=== PATIENT | female | born 1990 | race Caucasian/White ===

== ENCOUNTER 2023-02-27 11:57 | Outpatient (CLI) | payer MEDICAID, SELFPAY ==
[2023-02-27 13:38] LABS: Thyroid Stim Hormone (TSH) 0.07 uIU/mL (0.358-3.74)
== END 2023-02-27 23:59 | disposition home or self-care (01) ==
PROVIDERS: Visit Provider Psychiatry & Neurology Psychiatry
DX: Z00.00 Encounter for general adult medical examination without abnormal findings (principal); E05.00 Thyrotoxicosis with diffuse goiter without thyrotoxic crisis or storm
CPT/HCPCS: 36415; 84439; 84443; 84481

== ENCOUNTER 2023-05-15 12:56 | Emergency (ER) | payer MEDICAID, SELFPAY ==
[2023-05-15 12:56] VITALS: BP 161/89; PULSE 79; RESP 18; TEMP 35.7; O2SAT 98; BMI 43.4
--- NOTE | 2023-05-15 14:13 | EKG12_ITS ---
Test Reason : Blood Pressure : / mmHG Vent. Rate : 067 BPM Atrial Rate : 067 BPM P-R Int : 174 ms QRS Dur : 096 ms QT Int : 426 ms P-R-T Axes : 023 047 038 degrees QTc Int : 450 ms Normal sinus rhythm Normal ECG Confirmed by BOBY FLOOD, KEVON ([id number]), supervising editor trailer JENY RUGGIERO ([id number]) on 05/17/2023 9:47:15 AM Referred By: Confirmed By:KEVON LANDIS MD
--- NOTE | 2023-05-15 15:28 | ED.RN ---
NO OLD EKGS
[2023-05-15 15:53] VITALS: BP 121/60; BP 138/74; BP 144/81; PULSE 106; PULSE 59; PULSE 63; PULSE 64; RESP 14; O2SAT 99
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
[2023-05-15 16:55] LABS: Absolute Lymphocyte Count 3.26 X10^3/uL (0.83-4.51); Absolute Neutrophil Count 3.7 X10^3/uL (2.0-7.7); Basophil# 0.06 X10^3/uL; Basophil% 0.7 % (0-1); Eosinophil# 0.37 X10^3/uL; Eosinophils% 4.6 % (0-5); Hematocrit 40.2 % (37-47); Hemoglobin 12.8 g/dL (12.0-15.0); Lymphocyte # 3.26 X10^3/ul (0.83-4.51); Lymphocyte % 40.5 % (19-41); Mean Corp Hgb Conc 31.8 g/dL (32-36); Mean Corpuscular Hgb 29.2 pg (27.0-32.0); Mean Corpuscular Volume 91.6 fL (81-99); Mean Platelet Vol. 9.9 fl (6.2-12.0); Monocyte# 0.62 X10^3/uL; Monocyte% 7.7 % (0-10); NRBC Flagged by Analyzer 0 % (0-5); Neutrophil # 3.72 X10^3/uL (2.7-7.7); Neutrophil % 46.3 % (47-70); Platelet Count 310 K/mm3 (150-450); RBC Distribution Width CV 13.4 % (11.6-14.6); RBC Distribution Width SD 45.8 fl (35.1-43.9); Red Blood Count 4.39 M/mm3 (4.2-5.4); White Blood Count 8.1 K/mm3 (4.4-11.0)
[2023-05-15] MEDS: 0.9% Normal Saline (1000mL) 1,000 ML 1000 ML IV (16:59)
--- OUTSIDE RECORDS SUMMARY | 2023-05-15 17:15 | XMS RPT_ITS | CCD ---
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 including D-dimer because she is tachycardic. Will check lactic acid. EKG sinus tachycardia no acute ST elevation or ischemic findings. If her D-dimer is positive we will get a CTA of the chest. If her D-dimer is negative she is going to get a CT of her face to evaluate for any abscess. D-dimer is negative. Chest x-ray per my interpretation no acute process. We will get a CT of the face to make sure there is no abscess. Pending this study will guide disposition if it is negative for acute abscess I think she can go home on further antibiotics and close outpatient follow-up. Further details please see midlevel note. Patient currently on steroids and Keflex from yesterday. Pending studies will guide disposition. Comment: Please note this report has been produced using speech recognition software and may contain errors related to that system including errors in grammar, punctuation, and spelling, as well as words and phrases that may be inappropriate. If there is any questions or concerns please feel free to contact the dictating provider for clarification. Jose Angel Alfaro MD 08/27/22 1228 Jose Angel Alfaro MD 08/27/22 1431 documented in this encounter [facility] 08-27-2022 Physician Emergency department Note I, Jose Angel Alfaro MD, independently evaluated and examined the patient. Patient seen in conjunction with nurse practitioner or physician assistant professor of english or resident physician. Appropriate PPE including n 95, gown, gloves, goggles where worn when appropriate with this patient. I personally saw the patient and performed a substantive portion of the visit including all aspects of medical decision making. This will serve as my Supervisory note and shared attestation. Relevant history and physical exam: Patient presents with facial swelling. Patient was seen yesterday and treated as inflammatory response. She is swelling left side of her face. Does report having chest pain 3 days ago but not currently. On exam she is tachycardic. Lungs are clear. Examination of the face does have generalized erythema but swelling on the left no trismus. Medical decision making: We will check appropriate blood work including D-dimer because she is tachycardic. Will check lactic acid. EKG sinus tachycardia no acute ST elevation or ischemic findings. If her D-dimer is positive we will get a CTA of the chest. If her D-dimer is negative she is going to get a CT of her face to evaluate for any abscess. D-dimer is negative. Chest x-ray per my interpretation no acute process. We will get a CT of the face to make sure there is no abscess. Pending this study will guide disposition if it is negative for acute abscess I think she can go home on further antibiotics and close outpatient follow-up. Further details please see midlevel note. Patient currently on steroids and Keflex from yesterday. Pending studies will guide disposition. Comment: Please note this report has been produced using speech recognition software and may contain errors related to that system including errors in grammar, punctuation, and spelling, as well as words and phrases that may be inappropriate. If there is any questions or concerns please feel free to contact the dictating provider for clarification. Jose Angel Alfaro MD 08/27/22 1228 Jose Angel Alfaro MD 08/27/22 1431 [place] Phone: 08-26-2022 Hospital Discharg e mindy Perez DO - 08/26/2022 9:08 AM EDT At this time this does appear to be more of an allergic reaction rather than a skin infection. Please take the prednisone as prescribed. Please use Benadryl 25 mg 3 times daily as needed at home. If in 2 to 3 days there is any pain or the swelling has worsened please start the antibiotic at that time. We do believe this is more of an allergic reaction rather than a true infection and would like to do a [id number] process in regards to starting antibiotics. Any worsening or changing symptoms please return to the emergency department. The following attachments cannot be sent through Care Everywhere.Allergic Reaction ED ([place])documented in this encounter [facility] 08-26-2022 Emergency department Note Images from the original note were not included. EMERGENCY DEPARTMENT ENCOUNTER Pt Name: Natali Arana Birthdate 1990 Date of evaluation: 08/26/2022 ED Provider: Priscila Perez DO CHIEF COMPLAINT Chief Complaint Patient presents with Facial Swelling HISTORY OF PRESENT ILLNESS (Location/Symptom, Timing/Onset, Context/Setting, Quality, Duration, Modifying Factors, Severity) Note limiting factors. I wore appropriate PPE for the entirety of this encounter. HPI Natali Arana is a 32 y.o. female who presents to the emergency department for left facial swelling. Patient states that she woke this morning and had some swelling underneath her left eye and up to the bridge of her nose on the left side. Patient states she does not have any vision problems, states it does not hurt, states she has no teeth issues, no sore throat. Patient states she just noticed some swelling and came to the ED. Patient has no other underlying allergies she is aware of and came for evaluation Nursing Notes were reviewed. Limitations to history: Outside historians: REVIEW OF SYSTEMS Review of Systems Pertinent positives and negatives as per HPI PAST MEDICAL HISTORY Past Medical History: Diagnosis Date Thyroid disease SURGICAL HISTORY Past Surgical History: Procedure Laterality Date ABDOMINAL SURGERY CURRENT MEDICATIONS Previous Medications No medications on file ALLERGIES Bee venom FAMILY HISTORY No family history on file. SOCIAL HISTORY Social History Socioeconomic History Marital status: Tobacco Use Smoking status: Every Day Packs/day: 0.50 Types: Cigarettes Smokeless tobacco: Never Substance and Sexual Activity Alcohol use: Not Currently Drug use: Never SCREENINGS PHYSICAL EXAM ED Triage Vitals [08/26/22 0848] Temp Heart Rate Resp BP 36.7 C (98 F) 95 16 (!) 158/107 SpO2 Temp Source Heart Rate Source Patient Position 100 % Temporal Monitor -- BP Location FiO2 (%) -- -- Physical Exam Vitals and nursing note reviewed. Constitutional: General: She is not in acute distress. Appearance: She is well-developed. HENT: Head: Normocephalic and atraumatic. Comments: Facial swelling noted to the left face underneath the left eye. No erythema, or exudative discharge noted. Airway is intact no uvular deviation, peritonsillar abscess negative for lymphadenopathy tracheal deviation or meningeal signs. Patient does not have any vision abnormalities normal cranial nerve evaluation of the eyes bilaterally. Patient has no pain to palpation of the site. Eyes: Conjunctiva/sclera: Conjunctivae normal. Cardiovascular: Rate and Rhythm: Normal rate and regular rhythm. Heart sounds: No murmur heard. Pulmonary: Effort: Pulmonary effort is normal. No respiratory distress. Breath sounds: Normal breath sounds. Abdominal: Palpations: Abdomen is soft. Tenderness: There is no abdominal tenderness. Musculoskeletal: General: No swelling. Cervical back: Neck supple. Skin: General: Skin is warm and dry. Capillary Refill: Capillary refill takes less than 2 seconds. Neurological: Mental Status: She is alert. Psychiatric: Mood and Affect: Mood normal. DIAGNOSTIC RESULTS RADIOLOGY (Per Emergency Physician): Interpretation per the Radiologist below, if available at the time of this note: No orders to display LABS: Labs Reviewed - No data to display All other labs were within normal range or not returned as of this dictation. EMERGENCY DEPARTMENT COURSE and DIFFERENTIAL DIAGNOSIS/MDM: Vitals: Vitals: 08/26/22 0848 BP: (!) 158/107 Pulse: 95 Resp: 16 Temp: 36.7 C (98 F) TempSrc: Temporal SpO2: 100% Weight: 118 kg (260 lb) Medications predniSONE (Deltasone) tablet 40 mg (has no administration in time range) diphenhydrAMINE (BENADryl) tablet/capsule 25 mg (has no administration in time range) At this time patient presented for swelling to the left face. Patient has absolutely no pain whatsoever has no breathing issues has no sore throat. We did consider preseptal cellulitis, infected tooth, allergic reaction. At this time given that the patient has no pain whatsoever has had no recent trauma does not have any evidence of eye entrapment I did not see any indication to obtain imaging. We did consider obtaining CT of the face however given that the patient only has some subtle swelling we elected not to obtain CT imaging. We also considered CBC, CMP, ESR and CRP. At this time this does appear to be more of a allergic reaction rather than a infectious process. We did give the patient a dose of prednisone 40 mg here in the emergency department with associated Benadryl 25 mg. I have given the patient a prescription for prednisone 40 mg daily for 5 days at home. I also gave the patient a prescription for Keflex and that if this did seem to worsen, she did begin to develop pain or any type of fevers I have instructed the patient to start the antibiotics. I did give the patient return precautions she was agreeable and amenable to this plan and has since been discharged home. MDM elements: The patient presented with chief complaint of ischial swelling. The differential diagnosis associated with this patient's presentation includes preseptal cellulitis, allergic reaction, tooth infection. Our workup consisted of ordering/reviewing: Considered CBC CMP, ESR CRP CT scanning, chart review. Patient is in agreement with this plan. PROCEDURES: Unless otherwise noted below, none Procedures CRITICAL CARE TIME FINAL IMPRESSION 1. Swelling of left side of face DISPOSITION Discharge 08/26/2022 09:04:48 AM PATIENT REFERRED TO: Zakiya Etienne NP [address] [facility] [address] DISCHARGE MEDICATIONS: New Prescriptions CEPHALEXIN (KEFLEX) 500 MG CAPSULE Take 1 capsule (500 mg) by mouth in the morning and 1 capsule (500 mg) at noon and 1 capsule (500 mg) in the evening and 1 capsule (500 mg) before bedtime. Do all this for 5 days. PREDNISONE (DELTASONE) 20 MG TABLET Take 2 tablets (40 mg) by mouth daily for 5 days. (Comment: Please note this report has been produced using speech recognition software and may contain errors related to that system including errors in grammar, punctuation, and spelling, as well as words and phrases that may be inappropriate. If there are any questions or concerns please feel free to contact the dictating provider for clarification.) Priscila Perze DO (electronically signed) Emergency Medicine Provider Priscila Perez DO 08/26/22 0984 Presents with complaints of left sided facial swelling since last night around 1999. Denies new meds, food, soaps. Denies any dental pain. documented in this encounter [facility] 08-26-2022 Emergency department Triage note Presents with complaints of left sided facial swelling since last night around 1999. Denies new meds, food, soaps. Denies any dental pain. [facility] 08-26-2022 Physician Emergency department Note Images from the original note were not included. EMERGENCY DEPARTMENT ENCOUNTER Pt Name: Natali Arana Birthdate 1990 Date of evaluation: 08/26/2022 ED Provider: Priscila Perez DO CHIEF COMPLAINT Chief Complaint Patient presents with Facial Swelling HISTORY OF PRESENT ILLNESS (Location/Symptom, Timing/Onset, Context/Setting, Quality, Duration, Modifying Factors, Severity) Note limiting factors. I wore appropriate PPE for the entirety of this encounter. HPI Natali Arana is a 32 y.o. female who presents to the emergency department for left facial swelling. Patient states that she woke this morning and had some swelling underneath her left eye and up to the bridge of her nose on the left side. Patient states she does not have any vision problems, states it does not hurt, states she has no teeth issues, no sore throat. Patient states she just noticed some swelling and came to the ED. Patient has no other underlying allergies she is aware of and came for evaluation Nursing Notes were reviewed. Limitations to history: Outside historians: REVIEW OF SYSTEMS Review of Systems Pertinent positives and negatives as per HPI PAST MEDICAL HISTORY Past Medical History: Diagnosis Date Thyroid disease SURGICAL HISTORY Past Surgical History: Procedure Laterality Date ABDOMINAL SURGERY CURRENT MEDICATIONS Previous Medications No medications on file ALLERGIES Bee venom FAMILY HISTORY No family history on file. SOCIAL HISTORY Social History Socioeconomic History Marital status: Tobacco Use Smoking status: Every Day Packs/day: 0.50 Types: Cigarettes Smokeless tobacco: Never Substance and Sexual Activity Alcohol use: Not Currently Drug use: Never SCREENINGS PHYSICAL EXAM ED Triage Vitals [08/26/22 0848] Temp Heart Rate Resp BP 36.7 C (98 F) 95 16 (!) 158/107 SpO2 Temp Source Heart Rate Source Patient Position 100 % Temporal Monitor -- BP Location FiO2 (%) -- -- Physical Exam Vitals and nursing note reviewed. Constitutional: General: She is not in acute distress. Appearance: She is well-developed. HENT: Head: Normocephalic and atraumatic. Comments: Facial swelling noted to the left face underneath the left eye. No erythema, or exudative discharge noted. Airway is intact no uvular deviation, peritonsillar abscess negative for lymphadenopathy tracheal deviation or meningeal signs. Patient does not have any vision abnormalities normal cranial nerve evaluation of the eyes bilaterally. Patient has no pain to palpation of the site. Eyes: Conjunctiva/sclera: Conjunctivae normal. Cardiovascular: Rate and Rhythm: Normal rate and regular rhythm. Heart sounds: No murmur heard. Pulmonary: Effort: Pulmonary effort is normal. No respiratory distress. Breath sounds: Normal breath sounds. Abdominal: Palpations: Abdomen is soft. Tenderness: There is no abdominal tenderness. Musculoskeletal: General: No swelling. Cervical back: Neck supple. Skin: General: Skin is warm and dry. Capillary Refill: Capillary refill takes less than 2 seconds. Neurological: Mental Status: She is alert. Psychiatric: Mood and Affect: Mood normal. DIAGNOSTIC RESULTS RADIOLOGY (Per Emergency Physician): Interpretation per the Radiologist below, if available at the time of this note: No orders to display LABS: Labs Reviewed - No data to display All other labs were within normal range or not returned as of this dictation. EMERGENCY DEPARTMENT COURSE and DIFFERENTIAL DIAGNOSIS/MDM: Vitals: Vitals: 08/26/22 0848 BP: (!) 158/107 Pulse: 95 Resp: 16 Temp: 36.7 C (98 F) TempSrc: Temporal SpO2: 100% Weight: 118 kg (260 lb) Medications predniSONE (Deltasone) tablet 40 mg (has no administration in time range) diphenhydrAMINE (BENADryl) tablet/capsule 25 mg (has no administration in time range) At this time patient presented for swelling to the left face. Patient has absolutely no pain whatsoever has no breathing issues has no sore throat. We did consider preseptal cellulitis, infected tooth, allergic reaction. At this time given that the patient has no pain whatsoever has had no recent trauma does not have any evidence of eye entrapment I did not see any indication to obtain imaging. We did consider obtaining CT of the face however given that the patient only has some subtle swelling we elected not to obtain CT imaging. We also considered CBC, CMP, ESR and CRP. At this time this does appear to be more of a allergic reaction rather than a infectious process. We did give the patient a dose of prednisone 40 mg here in the emergency department with associated Benadryl 25 mg. I have given the patient a prescription for prednisone 40 mg daily for 5 days at home. I also gave the patient a prescription for Keflex and that if this did seem to worsen, she did begin to develop pain or any type of fevers I have instructed the patient to start the antibiotics. I did give the patient return precautions she was agreeable and amenable to this plan and has since been discharged home. MDM elements: The patient presented with chief complaint of ischial swelling. The differential diagnosis associated with this patient's presentation includes preseptal cellulitis, allergic reaction, tooth infection. Our workup consisted of ordering/reviewing: Considered CBC CMP, ESR CRP CT scanning, chart review. Patient is in agreement with this plan. PROCEDURES: Unless otherwise noted below, none Procedures CRITICAL CARE TIME FINAL IMPRESSION 1. Swelling of left side of face DISPOSITION Discharge 08/26/2022 09:04:48 AM PATIENT REFERRED TO: Zakiya Etienne NP [address] [place] [id number] DISCHARGE MEDICATIONS: New Prescriptions CEPHALEXIN (KEFLEX) 500 MG CAPSULE Take 1 capsule (500 mg) by mouth in the morning and 1 capsule (500 mg) at noon and 1 capsule (500 mg) in the evening and 1 capsule (500 mg) before bedtime. Do all this for 5 days. PREDNISONE (DELTASONE) 20 MG TABLET Take 2 tablets (40 mg) by mouth daily for 5 days. (Comment: Please note this report has been produced using speech recognition software and may contain errors related to that system including errors in grammar, punctuation, and spelling, as well as words and phrases that may be inappropriate. If there are any questions or concerns please feel free to contact the dictating provider for clarification.) Priscila Perez DO (electronically signed) Emergency Medicine Provider Priscila Perez DO 08/26/22 0923 [facility] 08-06-2021 Note Hospitalist Discharg e Summary Natali Arana : 1990 ADMIT DATE: 08/05/2021 DISCHARGE DATE: 08/06/2021 PRIMARY CARE PHYSICIAN: No primary care provider on file. VISIT STATUS: admission CODE STATUS: Full Code DISCHARGE DIAGNOSES: Active Problems: Pneumonia Resolved Problems: * No resolved hospital problems. * Addenduum Active problems in addition to above: Simple Sepsis Morbid Obesity HOSPITAL COURSE: Admitted for pneumonia, left AMA immediately and did not transfer to floor. Warned about risks of leaving AMA prior to leaving. Received Azithromycin and Rocephin. DISCHARGE MEDICATIONS: Medication List START taking these medications levoFLOXacin 750 MG tablet Commonly known as: Levaquin Take 1 tablet by mouth daily for 10 days ASK your doctor about these medications Cepacol Extra Strength 15-2.6 MG Lozg lozenge Generic drug: Benzocaine-Menthol Take 1 lozenge by mouth every 2 hours as needed for Sore Throat Concerta 54 MG extended release tablet Generic drug: methylphenidate ibuprofen 600 MG tablet Commonly known as: ADVIL;MOTRIN Take 1 tablet by mouth every 6 hours as needed for Pain or Fever * levothyroxine 175 MCG tablet Commonly known as: SYNTHROID Take 1 tablet by mouth daily * levothyroxine 175 MCG tablet Commonly known as: SYNTHROID Take 1 tablet by mouth daily * This list has 2 medication(s) that are the same as other medications prescribed for you. Read the directions carefully, and ask your doctor or other care provider to review them with you. Where to Get Your Medications These medications were sent to [facility] [address] - [place], [facility] [address] [place] [address] - [phone] - F [phone] [place] [phone] ? levoFLOXacin 750 MG tablet DIET: ADULT DIET; Regular ACTIVITY: as tolerated SIGNIFICANT DIAGNOSTIC STUDIES: labs, CTA PENDING STUDIES: None RECOMMENDED NEXT STEPS: take Abx DISPOSITION: AMA FACILITY/HOME CARE AGENCY NAME: No primary care provider on file. Follow up with Primary doctor. Return to ED If worsening symptoms. SIGNED: Douglas Hernandes MD 08/06/2021, 4:59 AM [facility] documented in this encounter [facility] Work Phone: Evaluation note* Diagnosis Pneumonia Pneumonia, organism unspecified documented in this encounter [facility] Work Phone: Evaluation note* Diagnosis Pneumonia due to infectious organism, unspecified laterality, unspecified part of lung- Primary documented in this encounter [facility] Work Phone: Evaluation note* Diagnosis Swelling of left side of face- [facility] Diagnosis Facial swelling- Primary Swelling, mass, or lump in head and neck Dental abscess Periapical abscess without sinus [facility] Diagnosis Chronic low back pain without sciatica, unspecified back pain laterality- Primary Upper back pain Unspecified backache Other chronic back pain [facility] Diagnosis Lumbar radiculopathy- Primary Thoracic or lumbosacral neuritis or radiculitis, unspecified Lumbar spondylosis Lumbosacral spondylosis without myelopathy Spondylolisthesis of lumbar region Lumbar pain Lumbago [facility]* Attachments The following attachments cannot be sent through Care Everywhere. * Nosebleeds ([place]) documented in this [facility] Work Phone: Hospital Discharge instructions* Attachments The following attachments cannot be sent through Care Everywhere. * Pneumonia ([place]) documented in this [facility] Work Phone: Hospital Discharge instructions* Attachments The following attachments cannot be sent through Care Everywhere. * Tooth Abscess Discharge Instructions ([place] Leonean) documented in this [facility] for referral (narrative)* Consultation (Urgent) - Pending Review Specialty Diagnoses / Procedures Referred By Fiona t Referred To Contact Physical Therapy Diagnoses Lumbar radiculopathy Procedures LA OFFICE/OUTPATIENT [facility] 60-74 MINUTES Priscila Cortes MD [address] [place] [address] [place] [address] [id number] [facility] [place] [address] [place] [address] Referral ID Status Reason Start Date Expiration Date Visits Requested Visits Authorized [id number] Pending Review Specialty Services Required 12/04/2022 12/04/2023 99 99 [facility] Discharge Instructions * Instructions* Chiquita Kinsey, THREAD SINGER - FIRE PREVENTION SPECIALIST - 12/03/2019 Please make an appointment to follow up with a primary care provider documented in this encounter* Attachments The following attachments cannot be sent through Care Everywhere. * Sore Throat ([place]an) documented in this encounter Assessments Diagnosis Encounter for medication refill Issue of repeat prescriptions Diagnosis Viral pharyngitis Acute pharyngitis Advance Directives Latest Code Status on File Code Status Date Activated Date Inactivated Comments Full Code 08/06/2021 4:08 AM Latest Code Status on File Code Status Date Activated Date Inactivated Comments Full Code 08/06/2021 4:08 AM 08/06/2021 6:43 AM Summary Purpose Family History No Family History Records FoundNo Family History Records FoundNo Family History Records Found Additional Source Comments Reason for Visit (unrecogniz ed section and content) Reason Comments Pharyngitis Reason Comments Epistaxis Reason Comments Back Pain left lung pain Reason Comments Shortness of Breath Reason Comments Facial Swelling Reason Comments Facial Swelling Pt. States she was s een yesterday for left facial swelling that has not gotten any better. Pt. States she has been taking the prescribed medications with no relief. Reason Comments Back Pain Reason Comments Back Pain Thoracic and lumbar Leg Pain L>R Reason Onset Date Comments Med Refill 01/07/2023 Scheduled Active and Recently Administ ered Medications (unrecognized section and content) Scheduled Medication Order 08/04/2021 08/05/2021 08/06/2021 0.9 % sodium chloride bolus 500 mL, IntraVENous, at 247.9 mL/hr, Administer over 121 Minutes, ONCE, On 08/06/21 at 0319, For 1 dose 0319 (Due) azithromycin (ZITHROMAX) 500 mg in dextrose 5 % 250 mL IVPB (COMPLETED) 500 mg, IntraVENous, ONCE, 1 dose, On 08/06/21 at 0134, Antimicrobial Indications: Pneumonia (CAP) 0308 (New Bag - Prov ider: Priscila Lyman RN)0431 (Stopped - Provider: Priscila Lyman RN - Comment: not completed due to patient refusal.) azithromycin (ZITHROMAX) 500 mg in dextrose 5 % 250 mL IVPB 500 mg, IntraVENous, EVERY 24 HOURS, First dose (after last reorder) on 08/07/21 at 0700, Until Discontinued, Antimicrobial Indications: Pneumonia (CAP) cefTRIAXone (ROCEPHIN) 1000 mg IVPB in NS 50ml minibag (COMPLETED) 1,000 mg, IntraVENous, ONCE, 1 dose, On 08/06/21 at 0134, Antimicrobial Indications: Pneumonia (CAP) 0213 (New Bag - Prov ider: Kale Gambino RN)0300 (Stopped - Provider: Priscila Lyman RN) cefTRIAXone sodium 1,000 mg in sodium chloride 0.9 % 100 mL IVPB (add-vantage) 1,000 mg, IntraVENous, EVERY 24 HOURS, First dose (after last reorder) on 08/07/21 at 0700, Until Discontinued, Antimicrobial Indications: Pneumonia (CAP) enoxaparin (LOVENOX) injection 40 mg 40 mg, SubCUTAneous, DAILY, First dose on 08/06/21 at 0900, Until Discontinued 0900 (Due) morphine sulfate (PF) injection 4 mg (COMPLETED) 4 mg, IntraVENous, ONCE, 1 dose, On 08/05/21 at 2347, If oral and IV narcotics ordered, use oral first and only use IV if oral is ineffective or cannot take oral. Do Not give oral and IV within 1 hour of each other unless specifically ordered. 0019 (Given - Provid er: Kale Gambino RN) sodium chloride flush 0.9 % injection 5-40 mL 5-40 mL, IntraVENous, EVERY 12 HOURS SCHEDULED (2 times per day), First dose on 08/06/21 at 0900, Until Discontinued, For Line Patency: Peripheral IV = 5 mL; Midline or Central Line = 10 mL/lumen. If following IV push medication, administer flush at same rate as the IV push. Flush volume is determined by type of infusion therapy being given. For non-viscous solutions use: Peripheral IV = 5 mL Midline or Central Line = 10 mL/lumen For viscous solutions (i.e. blood components, parenteral nutrition, contrast media, or after obtaining blood sample) use: Peripheral IV = 10 mL Midline or Central Line = 20 mL/lumen 0900 (Due)2100 (Due) Continuous Medication Order 08/04/2021 08/05/2021 08/06/2021 0.9 % sodium chloride infusion IntraVENous, at 125 mL/hr, CONTINUOUS, Starting on 08/06/21 at 0327, For 16 hours 0327 (Due) PRN Medication Order 08/04/2021 08/05/2021 08/06/2021 0.9 % sodium chloride infusion IntraVENous, at 5-250 mL/hr, PRN, if patient receiving piggyback infusions and maintenance fluids are not ordered OR KVO fluids to protect IV site / prevent frequent line interruptions/ long duration, Starting on 08/06/21 at 0402, For piggyback infusion, administer at same rate as piggyback for a total of 25 mL. Enter 25 mL into dose field and piggyback rate into rate field of order. If piggyback is infusing at a rate less than 100 mL/hr, enter 25 mL into dose field and 100 mL/hr into rate field of order. For KVO fluids, enter rate of 20 mL/hr or less into rate field of order. acetaminophen (TYLENOL) suppository 650 mg(Linked Group 1) 650 mg, Rectal, EVERY 6 HOURS PRN, Starting on 08/06/21 at 0402, Until Discontinued, Pain Mild (1-3), Fever, For temp greater than 100.4 F (38 C), Administer if oral route cannot be used. acetaminophen (TYLENOL) tablet 650 mg(Linked Group 1) 650 mg, Oral, EVERY 6 HOURS PRN, Starting on 08/06/21 at 0402, Until Discontinued, Pain Mild (1-3), Fever, For temp greater than 100.4 F (38 C), Maximum dose of acetaminophen is 4000 mg from all sources in 24 hours. albuterol sulfate HFA 108 (90 Base) MCG/ACT inhaler 2 puff 2 puff, Inhalation, EVERY 4 HOURS PRN, Starting on [place] 08/06/21 at 0355, Until Discontinued, Wheezing, Initiate RT Bronchodilator Protocol: Yes guaiFENesin (MUCINEX) extended release tablet 600 mg 600 mg, Oral, 2 TIMES DAILY PRN, Starting on 08/06/21 at 0401, Until Discontinued, Congestion, Do not crush or break. iopamidol (ISOVUE-370) 76 % injection 75 mL (COMPLETED) 75 mL, Other, IMG ONCE PRN, 1 dose, Starting on 08/06/21 at 0002, Until 08/06/21 at 0028, Other 0028 (Given - Provid er: Monica Gordon) ondansetron (ZOFRAN) injection 4 mg(Linked Group 2) 4 mg, IntraVENous, EVERY 6 HOURS PRN, Starting on 08/06/21 at 0402, Until Discontinued, Nausea, Vomiting, Administer if oral route cannot be used. ondansetron (ZOFRAN-ODT) disintegrating tablet 4 mg(Linked Group 2) 4 mg, Oral, EVERY 8 HOURS PRN, Starting on 08/06/21 at 0402, Until Discontinued, Nausea, Vomiting polyethylene glycol (GLYCOLAX) packet 17 g 17 g, Oral, DAILY PRN, Starting on 08/06/21 at 0402, Until Discontinued, Constipation, First line therapy for constipation sodium chloride flush 0.9 % injection 5-40 mL 5-40 mL, IntraVENous, PRN, Starting on 08/06/21 at 0402, Until Discontinued, Line Care, After every IV line use, For Line Patency: Peripheral IV = 5 mL; Midline or Central Line = 10 mL/lumen. If following IV push medication, administer flush at same rate as the IV push. Flush volume is determined by type of infusion therapy being given. For non-viscous solutions use: Peripheral IV = 5 mL Midline or Central Line = 10 mL/lumen For viscous solutions (i.e. blood components, parenteral nutrition, contrast media, or after obtaining blood sample) use: Peripheral IV = 10 mL Midline or Central Line = 20 mL/lumen Linked Groups Order Group 1: acetaminophen (TYLENOL) tablet 650 mgJump to med 650 mg, Oral, EVERY 6 HOURS PRN, Starting on 08/06/21 at 0402, Until Discontinued, Pain Mild (1-3), Fever, For temp greater than 100.4 F (38 C)
Maximum dose of acetaminophen is 4000 mg from all sources in 24 hours.
Or acetaminophen (TYLENOL) suppository 650 mgJump to med 650 mg, Rectal, EVERY 6 HOURS PRN, Starting on 08/06/21 at 0402, Until Discontinued, Pain Mild (1-3), Fever, For temp greater than 100.4 F (38 C)
Administer if oral route cannot be used.
Group 2: ondansetron (ZOFRAN-ODT) disintegrating tablet 4 mgJump to med 4 mg, Oral, EVERY 8 HOURS PRN, Starting on 08/06/21 at 0402, Until Discontinued, Nausea, Vomiting Or ondansetron (ZOFRAN) injection 4 mgJump to med 4 mg, IntraVENous, EVERY 6 HOURS PRN, Starting on 08/06/21 at 0402, Until Discontinued, Nausea, Vomiting
Administer if oral route cannot be used.
Scheduled Medication Order 08/24/2022 08/25/2022 08/26/2022 diphenhydrAMINE (BENADryl) tablet/capsule 25 mg (COMPLETED) 25 mg, Oral, Once, On 08/26/22 at 0905, For 1 dose 917 (Given - Provid er: Fabiola Merino RN) predniSONE (Deltasone) tablet 40 mg (COMPLETED) 40 mg, Oral, Once, On 08/26/22 at 0905, For 1 dose 09 (Given - Provid er: Fabiola Merino RN) Scheduled Medication Order 08/25/2022 08/26/2022 08/27/2022 acetaminophen (Tylenol) tablet 650 mg (COMPLETED) 650 mg, Oral, Once, On Sat08/27/22 at 1635, For 1 dose, Maximum dose of acetaminophen is 4000 mg from all sources in 24 hours. 1639 (Given - Provid er: Reuben Robison) amoxicillin-clavulanate (Augmentin) 875-125 MG per tablet 1 tablet (COMPLETED) 1 tablet (875 mg), Oral, Once, On Sat08/27/22 at 1630, For 1 dose, Suspected Indication (Select all that apply): Other, Other Abx Indication: dental abscess 1640 (Given - Provid er: Reuben Robison) ketorolac (Toradol) injection 15 mg (COMPLETED) 15 mg, IntraVENous, Once, On 5/1/23 at 1140, For 1 dose 1157 (Given - Provid er: Milagros Guerrero, JOHN) sodium chloride 0.9 % bolus 1,000 mL (COMPLETED) 1,000 mL, IntraVENous, at 1,000 mL/hr, Administer over 1 Hours, Once, On Sat08/27/22 at 1140, For 1 dose 1152 (New Bag - Prov ider: JOHN Aragon)1252 (Stopped - Provider: Yanet Logan RN) PRN Medication Order 08/25/2022 08/26/2022 08/27/2022 iopamidol (Isovue-370) 76 % injection 75 mL (COMPLETED) 75 mL, IntraVENous, IMG once PRN, contrast, Starting on Sat08/27/22 at 1607, For 1 dose 1607 (Given - Provid er: GRISEL Taylor) Scheduled Medication Order 11/20/2022 11/21/2022 11/22/2022 ibuprofen tablet 600 mg (COMPLETED) 600 mg, Oral, Once, On Alma Delia 11/22/22 at 1225, For 1 dose 1236 (Given - Provid er: Maty Naidu RN) Lidocaine 4 % patch 1 patch 1 patch, TransDERmal, Administer over 12 Hours, Daily, First dose on Alma Delia 11/22/22 at 1225, Apply patch to lower back. Patch may remain in place for up to 12 hours in any 24 hour period. 1235 (Medication Armaan lied - Provider: Maty Naidu RN - Comment: lower back)1350 (Due: Medication Removed - Provider: Automatic Discharge Provider - Comment: Time automatically adjusted from order being discontinued) Ordered Prescriptions (unrec ognized section and content) Prescription Sig Dispensed Refills Start Date End Da te levoFLOXacin (LEVAQUIN) 750 MG tablet Take 1 tablet by mouth daily for 10 days 10 tablet 0 08/06/2021 2021 INFORMATION SOURCE (unrecogn ized section and content) DATE CREATED AUTHOR AUTHOR'S ORGANIZ ATION 12/07/2022 [facility] DATE CREATED AUTHOR AUTHOR'S ORGANIZ ATION 01/05/2023 [facility] Teams (unrecognized sec tion and content) Accounting Instructor Relationship Specialty Start Date End Date Zakiya Etienne, TIFFANIE [address] [facility] [place], [place] [id number] PCP - General Internal Medicine 06/25/22 Accounting Instructor Relationship Specialty Start Date End Date Zakiya Etienne NP [address] [place] [address] PCP - General Internal Medicine 06/25/22 Accounting Instructor Relationship Specialty Start Date End Date LowellZakiya NP [address] [place] [address] PCP - General Internal Medicine 06/25/22 Accounting Instructor Relationship Specialty Start Date End Date LowellZakiya NP [address] [place], [place] [id number] PCP - General Internal Medicine 06/25/22 Horace Willingham MD [address] [place] [id number] Surgeon General Surgery 12/10/22 FOR RECORDS PERTAINING TO PATIENTS WHO ARE OR HAVE BEEN ENROLLED IN A CHEMICAL DEPENDENCY/SUBSTANCEABUSE PROGRAM, SOME INFORMATION MAY BE OMITTED. This clinical summary was aggregated from multiple sources. Caution should be exercised in using it in the provision of clinical care. This summary normalizes information from multiple sources, and as a consequence, information in this document may materially change the coding, format and clinical context of patient data. In addition, data may be omitted in some cases. CLINICAL DECISIONS SHOULD BE BASED ON THE PRIMARY CLINICAL RECORDS. [employer] [facility]. provides no warranty or guarantee of the accuracy or completeness of information in this document.
[2023-05-15 17:36] LABS: Anion Gap 4 (5-15); BUN 21 mg/dL (7-18); BUN/Creat Ratio 22.8 RATIO (10-20); Calcium,Total 8.9 mg/dL (8.5-10.1); Chloride 107 mmol/L (98-107); Creatinine, Serum 0.92 mg/dL (0.55-1.02); EST Glomerular Filtration Rate 75 mL/min (>60); Est Glom Filt Rate - Afr Amer 91 mL/min (>60); Estimated Creatinine Clearance 118.08 ml/min; Glucose 87 mg/dL (74-106); Potassium 4.3 mmol/L (3.5-5.1); Sodium Level 137 mmol/L (136-145)
[2023-05-15 17:52] LABS: Bacteria 0 SEEN /hpf (None Seen); Mucous, Urine 0 SEEN /hpf (<or=2+); Red Blood Cells-Urine 0 SEEN /hpf (0-5); White Blood Cells 0 SEEN /hpf (0-5)
[2023-05-15 17:53] LABS: Internal QC Validated? YES +Cl - CLEAR BKGD; Pregnancy, Serum, hCG Quali. NEGATIVE Negative
[2023-05-15 17:56] VITALS: BP 122/64; PULSE 64; RESP 16; O2SAT 99
[2023-05-15 18:09] LABS: Color, Urine Yellow (Yellow); Glucose, Dipstick Normal (Normal); Ketone-Dipstick Negative (Negative); Leukocyte Esterase-Dipstick Negative /ul (Negative); Nitrite-Dipstick Negative (Negative); Occult Blood-Urine Negative /ul (Negative); Protein-Dipstick 15 mg/dl (Negative); Specific Gravity, Urine 1.025 (1.002-1.030); Urine Bilirubin Dipstick Negative (Negative); Urine Clarity Clear (Clear); Urine Urobilinogen Normal (Normal)
[2023-05-15 18:19] LABS: Squamous Epithelial Cells - UA 0-5 SEEN /hpf (5-10)
[2023-05-15 18:49] VITALS: BP 126/65; O2SAT 100
== END 2023-05-15 18:56 | disposition home or self-care (01) ==
PROVIDERS: Emergency Provider Emergency Medicine; Visit Provider Emergency Medicine
DX: R42 Dizziness and giddiness (principal); F41.9 Anxiety disorder, unspecified; Z79.899 Other long term (current) drug therapy; E03.9 Hypothyroidism, unspecified
CPT/HCPCS: 80048; 81001; 84443; 84703; 85025; 93005; 99285; J7030; A4216

== ENCOUNTER → 2023-09-04 | Outpatient (CLI) | payer MEDICAID, SELFPAY ==
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
== END | disposition home or self-care (01) ==
PROVIDERS: Referring Provider Family Medicine; Visit Provider Family Medicine
DX: G81.94 Hemiplegia, unspecified affecting left nondominant side (principal)
CPT/HCPCS: 72100

== ENCOUNTER → 2023-09-20 | Outpatient (CLI) | payer MEDICAID, SELFPAY ==
--- NOTE | 2023-09-20 16:06 | CT_ITS ---
STUDY: CT BRAIN WITHOUT CONTRAST REASON FOR EXAM: Female, 33 years old. Facial weakness RADIATION DOSAGE (If Supplied By Facility): CTDIvol = ( 44.99 ) mGy, DLP = ( 812.98 ) mGycm TECHNIQUE: Transaxial CT imaging of the brain was performed without administration of intravenous contrast material. Individualized dose optimization techniques were used for this CT. COMPARISON: No relevant priors. FINDINGS: Normal soft tissue structures. Normal calvarium. Normal size ventricles and extra-axial spaces for the patient''s age. Normal white matter tracts of the cerebral hemispheres. Normal basal ganglia and thalami. Normal brainstem. Normal cerebellum. Empty sella deformity of uncertain significance. There is no intracranial hemorrhage. There are no findings of an acute ischemic infarction. Normal visualized paranasal sinuses. CT/Brain/Head without Contrast IMPRESSION: Empty sella deformity of uncertain significance. No evidence for obstructive hydrocephalus mass or acute bleed. If concern for acute infarct MRI recommended Electronically Signed: Juan Greco MD at 16:37 EDT Reading Location ID and State: [facility] / [place] Tel , Service support ,
== END | disposition home or self-care (01) ==
LOC: CT 15:57
PROVIDERS: Referring Provider Family Medicine; Visit Provider Family Medicine
DX: R29.810 Facial weakness (principal); G45.9 Transient cerebral ischemic attack, unspecified
CPT/HCPCS: 70450

== ENCOUNTER 2023-10-10 23:06 | Emergency (ER) | payer MEDICAID, SELFPAY ==
[2023-10-10 23:07] VITALS: BP 147/101; PULSE 85; RESP 16; TEMP 36.6; O2SAT 99; BMI 44.9
--- NOTE | 2023-10-10 23:21 | EDS_ITS ---
HPI History of Present Illness Chief Complaint: Dental Informant: patient Onset/Context/Timing Onset: Today and Yesterday Context: Gradual Onset Timing: Continuous Current Severity: Moderate Maximum Severity: Moderate Associated Symptoms Assocated Symptom - Dental: Negative for fever, jaw swelling, face swelling, cold sensitivity or hot sensitivity Narrative Narrative: 33-year-old female history of PTSD, anxiety prior drug abuse. States she is now sober. Complaining of right lower jaw dental pain. No fever. No trouble breathing or swallowing. Because of the last 2 days. No recent dental or jaw trauma. Prior similar symptoms: Yes Recent Illness/[facility] Medical History History of methamphetamine use PTSD (post-traumatic stress disorder) Hypothyroidism Anxiety Home Medications ?Medication ?Instructions ?Recorded ?Last Taken ?Type escitalopram oxalate 20 mg tablet mg 05/15/23 Unknown History levothyroxine 150 mcg tablet mcg 05/15/23 Unknown History meclizine 25 mg tablet mg 05/15/23 Unknown History meloxicam 15 mg tablet mg 05/15/23 Unknown History nicotine (polacrilex) 2 mg gum mg 05/15/23 Unknown History penicillin V potassium 500 mg 500 mg PO 4X/DAY #40 tabs 10/10/23 Unknown Rx tablet Allergy/AdvReac Type Severity Reaction Status Date / Time No Known Allergies Allergy Verified 10/10/23 23:08 Social History Smoking Status: Never smoker ROS ROS ED ROS Narrative Denies recent illness. Review of Systems ROS Unobtainable: Denies due to encephalopathy Constitutional Constitutional ED: Denies chills or fever(s) Eyes Eyes: Denies blurry vision ENT ENT ED: Denies ear pain Cardiovascular Cardiovascular: Denies chest pain Respiratory/Chest Respiratory/Chest: Denies cough Gastrointestinal Gastrointestinal: Denies abdominal pain Genitourinary Genitourinary ED: Denies dysuria Musculoskeletal Musculoskeletal: Denies arthralgias Integumentary Denies Abrasions Neurologic Neurologic: Denies headache(s) Psychiatric Psychiatric: Denies anxiety Endocrine Endocrinology: Denies cold intolerance Hematologic/Lymphatic Hematologic/Lymphatic: Denies easy bleeding Allergic/Immunologic Allergic/Immunologic ED: Denies tongue swelling or urticaria EXAM Physical Exam Narrative Exam Narrative: Well-appearing 33-year-old female. Vital signs stable afebrile. H EENT exam she is very very poor dentition. Multiple molars and premolars are eroded down to the gumline. There is diffuse gingivitis and gum swelling. No obvious abscess. She has no trouble swallowing or breathing. No trouble opening or closing her mouth. No trismus. Below her tongue there is no swelling. There is no facial swelling. Patient has cavities almost in every tooth. Neck nontender no lymphadenopathy. Lungs clear. Heart regular rhythm no murmur. Abdomen soft nontender. Otherwise exam unremarkable. She is awake and alert. Const Vital Signs: 10/10/23 23:07 Temperature 97.9 F Temperature Source Temporal Pulse Rate 85 Respiratory Rate 16 Blood Pressure 147/101 H Blood Pressure Mean 116 Pulse Ox 99 Oxygen Delivery Method Room Air Positive well nourished and well developed; Negative for cachectic, contractures or unkempt General Appearance ED: well developed and NAD; Negative for unkempt, cachectic or contractures Nutritional Appearance: Negative for cachectic HEENT HEENT Narrative: Very poor dentition. Cavities almost every tooth. Multiple teeth are noted out of the gumline. Gingival swelling. No abscess. No trismus. Underneath her tongue there is no signs of Ludwigs angina. Negative for trauma Mouth ED: Yes lips normal, Yes tongue normal, Yes salivary gland normal and No mouth trauma Mouth: lips normal, tongue normal, salivary gland normal and No mouth trauma Teeth and Gingiva: abnormal tooth and associated gingiva, caries, gingiva abnormal, poor dentition and teeth discoloration Throat: posterior oropharynx normal Eyes PERRL and EOMs intact bilaterally General Eye ED: Negative for pale conjunctiva or scleral icterus Neck no lymphadenopathy, supple and no JVD Lymph Lymphatic: no lymphadenopathy noted; Negative for lymphadenopathy Chest Wall inspection of chest normal Resp normal respiratory effort, no retractions and clear to auscultation bilaterally Cardio regular rate, regular rhythm, S1 normal heart sound, S2 normal heart sound and no murmurs GI normal to inspection, nondistended, normoactive bowel sounds, non-tender, non- distended and no masses Extremity normal to inspection and no joint enlargement General Extremety ED: Negative for edema General Extremity: Negative for edema Neuro oriented x3, CN's II-XII intact bilaterally, moves all extremities and no focal motor deficits Sensorium / Orientation: alert, oriented to person, oriented to place and oriented to time; Negative for orientation impaired Motor Exam: strength 5/5 throughout Psych mental status grossly normal Appearance: Negative for unkempt Attitude: No agitated Mood & Affect: Negative for depressed, anxious or tearful Skin no rashes or lesions noted and no wounds MDM MDM MDM Narrative Medical decision making narrative: 31-year-old female dental pain history of methamphetamine abuse. Has very poor dentition. Numerous caries. Numerous dental decay. Gingivitis. No abscess. No trismus. She will be started on penicillin VK 500 4 times daily for 10 days. Call her Medicaid insurance company to see who she can follow-up with for a dentist. Tylenol and Motrin for pain. She will be given her first dose of penicillin here. History & Record Review Discussion w/independent historian: Patient Additional record(s) reviewed:: Prior inpatient record, Prior outpatient record, Prior ED visit and Prior labs Discharge Plan Triage Chief Complaint: Dental ED Provider: Rowdy Cramer Dx/Rx/DC Orders Clinical Impression: Dental cavities, Gingivitis, Pain, dental, History of drug abuse Instructions: ED Dental Pain, ED Dental Cavity Prescriptions: New penicillin V potassium 500 mg tablet 500 mg PO 4X/DAY Qty: 40 0RF No Action nicotine (polacrilex) 2 mg gum meloxicam 15 mg tablet meclizine 25 mg tablet levothyroxine 150 mcg tablet escitalopram oxalate 20 mg tablet Primary Care Provider: Care Physician,No Primary Referrals: Care Physician,No Primary [Primary Care Provider] - Activity Restrictions/Additional Instructions: Penicillin 1 pill 4 times a day for the next 10 days. Motrin and Tylenol for pain. Call your insurance company to see who they contract with locally for dental care and follow-up with marko Lin is possible. Print Language: Estonian Disposition Disposition: Home, Self Care
[2023-10-10] MEDS: Penicillin Vk 250 MG Tablet 500 MG PO (23:23)
[2023-10-10 23:31] VITALS: RESP 16
== END 2023-10-10 23:31 | disposition home or self-care (01) ==
LOC: ED 23:29
PROVIDERS: Emergency Provider Emergency Medicine; Visit Provider Emergency Medicine
DX: K05.10 Chronic gingivitis, plaque induced (principal); K02.9 Dental caries, unspecified; F41.9 Anxiety disorder, unspecified; K08.89 Other specified disorders of teeth and supporting structures; E03.9 Hypothyroidism, unspecified
CPT/HCPCS: 99282

== ENCOUNTER → 2023-11-11 | Outpatient (CLI) | payer MEDICAID, SELFPAY ==
[2023-11-11 17:30] LABS: Cholesterol 179 mg/dL (200); High Density Lipoprotein 44 mg/dL; Thyroid Stim Hormone (TSH) 0.47 uIU/mL (0.358-3.74); Triglycerides 368 mg/dL; Very Low Density Lipoprotein 74 mg/dL (5-40)
[2023-11-11 20:09] LABS: Hemoglobin A1c 5.3 % (3.8-5.6)
== END | disposition home or self-care (01) ==
LOC: BIMLAB 15:20
PROVIDERS: PCP Internal Medicine; Referring Provider Internal Medicine; Visit Provider Internal Medicine
DX: F41.9 Anxiety disorder, unspecified (principal); E66.01 Morbid (severe) obesity due to excess calories; Z68.42 Body mass index [BMI] 45.0-49.9, adult; F32.A Depression, unspecified
CPT/HCPCS: 36415; 80061; 83036; 84443

== ENCOUNTER 2024-02-29 07:56 | Emergency (ER) | payer MEDICAID, SELFPAY ==
[2024-02-29 07:57] VITALS: BP 136/88; PULSE 85; RESP 16; TEMP 36.7; O2SAT 98; BMI 39.9
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
--- NOTE | 2024-02-29 08:17 | CT_ITS ---
EXAM: CT ABDOMEN AND PELVIS WITH INTRAVENOUS CONTRAST CLINICAL INDICATION: abdominal pain, constipation r/o obstruction -- IV PO Contrast TECHNIQUE: Helically acquired images were obtained of the abdomen and pelvis with intravenous contrast. This CT exam was performed using one or more of the following dose reduction techniques: automated exposure control, adjustment of the mA and/or kV according to patient size, and/or use of iterative reconstruction technique. CONTRAST: Oral and amp; IV Gastrografin and amp; 100mL [id number] COMPARISON: No relevant prior studies available. FINDINGS: LOWER THORAX: Small pericardial effusion. Normal heart size. No coronary artery calcification. ABDOMEN: LIVER: Normal. Homogeneous. No focal mass. GALLBLADDER AND BILE DUCTS: Normal. No calcified gallstones. No gallbladder distention or wall edema. No intra- or extrahepatic biliary ductal dilation. PANCREAS: Normal. No focal cystic or solid mass. SPLEEN: Normal. Normal size without focal cystic or solid mass. ADRENALS: Normal. No nodules. KIDNEYS AND URETERS: Normal. Normal renal size and position. No hydronephrosis. STOMACH AND BOWEL: Normal. No bowel distention. No focal inflammatory change. PELVIS: APPENDIX: Appendix is visualized and normal in appearance. BLADDER: Normal. REPRODUCTIVE: Unremarkable as visualized. No mass. ABDOMEN and PELVIS: INTRAPERITONEAL SPACE: Normal. No ascites or other fluid collection. No free air. BONES/JOINTS: Bilateral L5 spondylolysis noted with grade1 spondylolisthesis. Prominent disc degeneration at L5-S1 consisting of disc space narrowing, vacuum disc phenomenon and prominent vertebral body endplate sclerosis. SOFT TISSUES: Normal. No discrete abdominal or pelvic wall hernia. VASCULATURE: See above. LYMPH NODES: Normal. No enlarged lymph nodes. CT/Abdomen/Pelvis WITH Contrast IMPRESSION: 1. No acute abdominal or pelvic abnormality. 2. Small pericardial effusion. Electronically Signed: Josh Loza MD at 11:12 EDT ,
[2024-02-29 09:03] LABS: Absolute Neutrophil Count 3.1 X10^3/uL (2.0-7.7); Basophil# 0.02 X10^3/uL; Basophil% 0.4 % (0-1); Eosinophil# 0.19 X10^3/uL; Eosinophils% 3.5 % (0-5); Hematocrit 40.6 % (37-47); Hemoglobin 13.6 g/dL (12.0-15.0); Lymphocyte % 32.7 % (19-41); Mean Corp Hgb Conc 33.5 g/dL (32-36); Mean Corpuscular Hgb 29.3 pg (27.0-32.0); Mean Corpuscular Volume 87.5 fL (81-99); Monocyte% 7.3 % (0-10); NRBC Flagged by Analyzer 0 % (0-5); Neutrophil # 3.07 X10^3/uL (2.7-7.7); Neutrophil % 55.7 % (47-70); Platelet Count 315 K/mm3 (150-450); RBC Distribution Width CV 12.7 % (11.6-14.6); RBC Distribution Width SD 40.3 fl (35.1-43.9); Red Blood Count 4.64 M/mm3 (4.2-5.4); White Blood Count 5.5 K/mm3 (4.4-11.0)
[2024-02-29 09:14] LABS: ALB/GLOB Ratio 1.5 RATIO (0.9-2.4); AST(SGOT) 10 U/L (15-37); Alanine Aminotransfer ALT/SGPT 24 U/L (13-56); Albumin, Serum 4.3 g/dL (3.2-5.0); Alkaline Phosphatase 46 U/L (45-117); Anion Gap 3 (5-15); BUN 15 mg/dL (7-18); BUN/Creat Ratio 16.9 RATIO (10-20); Calcium,Total 9.1 mg/dL (8.5-10.1); Chloride 111 mmol/L (98-107); Creatinine, Serum 0.89 mg/dL (0.55-1.02); EST Glomerular Filtration Rate 78 mL/min (>60); Est Glom Filt Rate - Afr Amer 95 mL/min (>60); Estimated Creatinine Clearance 115.17 ml/min; Globulin 2.9 g/dL (2.2-4.2); Glucose 95 mg/dL (74-106); Lipase 21 U/L (13-75); Potassium 3.8 mmol/L (3.5-5.1); Protein, Total 7.2 g/dL (6.4-8.2); Sodium Level 142 mmol/L (136-145)
[2024-02-29 09:55] LABS: Bacteria 0 SEEN /hpf (None Seen); Mucous, Urine 0 SEEN /hpf (<or=2+); White Blood Cells 0 SEEN /hpf (0-5)
[2024-02-29 10:00] VITALS: BP 127/76; PULSE 78; RESP 14; TEMP 37; O2SAT 98
[2024-02-29 10:00] LABS: Color, Urine Yellow (Yellow); Glucose, Dipstick Normal (Normal); Ketone-Dipstick Negative (Negative); Leukocyte Esterase-Dipstick 25 /ul (Negative); Nitrite-Dipstick Negative (Negative); Occult Blood-Urine 250 /ul (Negative); Protein-Dipstick 100 mg/dl (Negative); Urine Bilirubin Dipstick Negative (Negative); Urine Clarity Sl. Cloudy (Clear); Urine Urobilinogen Normal (Normal)
[2024-02-29 10:07] LABS: Red Blood Cells-Urine > 100 SEEN /hpf (0-5)
[2024-02-29 10:08] LABS: Internal QC Validated? YES +Cl - CLEAR BKGD; Pregnancy, Urine Negative Negative; Squamous Epithelial Cells - UA 5-10 SEEN /hpf (5-10)
== END 2024-02-29 12:49 | disposition home or self-care (01) ==
LOC: ED 08:37
PROVIDERS: Emergency Provider Emergency Medicine; PCP Internal Medicine; Visit Provider Emergency Medicine
DX: R10.9 Unspecified abdominal pain (principal); K59.00 Constipation, unspecified; Z87.891 Personal history of nicotine dependence; E03.9 Hypothyroidism, unspecified; Z79.890 Hormone replacement therapy; F41.9 Anxiety disorder, unspecified; Z79.899 Other long term (current) drug therapy
CPT/HCPCS: 74177; 80053; 81001; 81025; 83690; 85025; 99285; Q9967; A4216

== ENCOUNTER 2024-03-21 18:04 | Emergency (ER) | payer MEDICAID, SELFPAY ==
[2024-03-21 18:05] VITALS: BP 134/83; PULSE 99; RESP 16; TEMP 36.2; O2SAT 99; BMI 41.3
[2024-03-21] MEDS: fentaNYL 100 MCG/2 ML Ampul 50 MCG IM (18:30)
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
[2024-03-21 19:33] VITALS: BP 107/67; PULSE 81; RESP 16; TEMP 36.8; O2SAT 99
== END 2024-03-21 19:35 | disposition home or self-care (01) ==
PROVIDERS: Emergency Provider Emergency Medicine; PCP Internal Medicine; Visit Provider Emergency Medicine
DX: G89.18 Other acute postprocedural pain (principal); Z87.891 Personal history of nicotine dependence; M54.9 Dorsalgia, unspecified; I25.2 Old myocardial infarction; E03.9 Hypothyroidism, unspecified; F41.9 Anxiety disorder, unspecified; Z98.1 Arthrodesis status
CPT/HCPCS: 96372; 99282

== ENCOUNTER 2024-03-25 20:01 | Emergency (ER) | payer MEDICAID, SELFPAY ==
[2024-03-25 20:01] VITALS: BP 146/93; PULSE 98; RESP 16; TEMP 36.9; O2SAT 99; BMI 40.6
--- NOTE | 2024-03-25 20:33 | RAD_ITS ---
INDICATION: postop pain -- hardware eval EXAMINATION/TECHNIQUE: X-RAY - XR Spine Lumbar 2 or 3 Views COMPARISON: CT abdomen and pelvis 02/29/2024 FINDINGS: VERTEBRAE: Preserved vertebral body height. No acute fracture. L4-5 spondylolisthesis increased to 12 mm with interval posterior fusion hardware at L4-5. The inferior pedicle screws appear to project minimally beyond the superior endplate of L5. No significant facet arthropathy. DISCS: Stable disc space narrowing at L4-5. INCLUDED ABDOMEN: Included bowel gas pattern is non-obstructive. Skin khari project to the right of midline over the lower lumbar spine and sacrum. RAD/Lumbar Spine 2 or 3 Views IMPRESSION: Status post L4-5 lumbar fusion with increased spondylolisthesis compared to the preceding CT scan. Inferior pedicle screws at the L5 level appear to project beyond the superior endplate of L5. Electronically Signed: Boom Zimmerman MD at 21:17 EST ,
[2024-03-25] MEDS: fentaNYL 100 MCG/2 ML Ampul 50 MCG IM (20:37)
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
== END 2024-03-25 21:54 | disposition home or self-care (01) ==
PROVIDERS: Emergency Provider Emergency Medicine; PCP Internal Medicine; Visit Provider Emergency Medicine
DX: G89.18 Other acute postprocedural pain (principal); M54.50 Low back pain, unspecified; R29.898 Other symptoms and signs involving the musculoskeletal system; Z87.891 Personal history of nicotine dependence; Z98.1 Arthrodesis status
CPT/HCPCS: 72100; 96372; 99282

== ENCOUNTER 2024-04-07 10:46 | Emergency (ER) | payer MEDICAID, SELFPAY ==
[2024-04-07 10:48] VITALS: BP 154/83; PULSE 110; RESP 16; TEMP 36.6; O2SAT 100; BMI 40.8
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
[2024-04-07 12:13] VITALS: BP 135/78; PULSE 85; RESP 16; TEMP 36.9; O2SAT 98
== END 2024-04-07 12:18 | disposition home or self-care (01) ==
PROVIDERS: Emergency Provider Emergency Medicine; PCP Internal Medicine; Visit Provider Emergency Medicine
DX: Z48.02 Encounter for removal of sutures (principal); E11.9 Type 2 diabetes mellitus without complications; F17.210 Nicotine dependence, cigarettes, uncomplicated; E03.9 Hypothyroidism, unspecified; F41.9 Anxiety disorder, unspecified; F32.A Depression, unspecified; K59.03 Drug induced constipation; T40.2X5A Adverse effect of other opioids, initial encounter; I25.2 Old myocardial infarction
CPT/HCPCS: 99283

== ENCOUNTER 2024-08-10 08:00 | Outpatient (RCR) | payer MEDICAID, SELFPAY ==
[2024-08-12 10:24] VITALS: BP 152/94; PULSE 74
== END 2024-08-26 23:59 ==
LOC: BHIOP 08:00
PROVIDERS: PCP Internal Medicine; Referring Provider Psychiatry & Neurology Psychiatry; Visit Provider Psychiatry & Neurology Psychiatry
DX: F43.10 Post-traumatic stress disorder, unspecified (principal); F60.3 Borderline personality disorder; F15.91 Other stimulant use, unspecified, in remission
CPT/HCPCS: H2012; H2020; S9480; 90832; 90834

== ENCOUNTER 2024-08-27 07:35 | Outpatient (RCR) | payer MEDICAID, SELFPAY ==
[2024-08-27 00:45] VITALS: BP 152/94; PULSE 74
== END 2024-09-26 23:59 ==
LOC: BHIOP 07:35
PROVIDERS: PCP Internal Medicine; Referring Provider Psychiatry & Neurology Psychiatry; Visit Provider Psychiatry & Neurology Psychiatry
DX: F60.3 Borderline personality disorder; F31.0 Bipolar disorder, current episode hypomanic; F15.91 Other stimulant use, unspecified, in remission
CPT/HCPCS: H2012; H2020; S9480; 90832; 90834

== ENCOUNTER 2024-09-15 13:20 | Emergency (ER) | payer MEDICAID, SELFPAY ==
[2024-09-15 13:21] VITALS: BP 155/105; PULSE 137; RESP 20; TEMP 36.7; O2SAT 99; BMI 46.4
--- NOTE | 2024-09-15 13:54 | EKG12_ITS ---
Test Reason : PALPS Blood Pressure : */* mmHG Vent. Rate : 90 BPM Atrial Rate : 90 BPM P-R Int : 164 ms QRS Dur : 92 ms QT Int : 364 ms P-R-T Axes : 32 37 21 degrees QTcB Int : 445 ms Normal sinus rhythm Nonspecific T wave abnormality Abnormal ECG Confirmed by BOBY FLOOD, KEVON ([id number]), film editor JENY RUGGIERO ([id number]) on 09/16/2024 10:31:01 AM Referred By: DON Confirmed By: KEVON LANDIS MD
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
[2024-09-15 14:29] LABS: Absolute Lymphocyte Count 2.51 X10^3/uL (0.83-4.51); Absolute Neutrophil Count 3.1 X10^3/uL (2.0-7.7); Basophil# 0.03 X10^3/uL; Basophil% 0.5 % (0-1); Eosinophil# 0.09 X10^3/uL; Eosinophils% 1.4 % (0-5); Hematocrit 40.7 % (37-47); Hemoglobin 13.9 g/dL (12.0-15.0); Lymphocyte # 2.51 X10^3/ul (0.83-4.51); Lymphocyte % 40.4 % (19-41); Mean Corp Hgb Conc 34.2 g/dL (32-36); Mean Corpuscular Hgb 29.9 pg (27.0-32.0); Mean Corpuscular Volume 87.5 fL (81-99); Mean Platelet Vol. 9.3 fl (6.2-12.0); Monocyte# 0.48 X10^3/uL; Monocyte% 7.7 % (0-10); NRBC Flagged by Analyzer 0 % (0-5); Neutrophil # 3.07 X10^3/uL (2.7-7.7); Neutrophil % 49.5 % (47-70); Platelet Count 358 K/mm3 (150-450); RBC Distribution Width CV 13.2 % (11.6-14.6); RBC Distribution Width SD 42.5 fl (35.1-43.9); Red Blood Count 4.65 M/mm3 (4.2-5.4); White Blood Count 6.2 K/mm3 (4.4-11.0)
[2024-09-15] MEDS: Aspirin 81 MG TAB.CHEW 324 MG PO (14:29)
[2024-09-15 14:39] LABS: D-Dimer Quantitative (DVT/PE) 1.99 FEU/ug/m (0.27-0.49)
--- NOTE | 2024-09-15 14:46 | ED.RN ---
Dr Solis notified of critical d-dimer.
[2024-09-15 14:51] LABS: Magnesium 2.1 mg/dL (1.5-2.2); Troponin T High Sensitivity 7 ng/L (<=14)
--- NOTE | 2024-09-15 15:06 | CT_ITS ---
PROCEDURE: CTA CHEST W/WO CONTRAST 09/15/2024 REASON FOR EXAM: PALPITATIONS, CONCERN FOR PE TECHNIQUE: CTA imaging of the chest with intravenous contrast. Multiplanar and multisequence images were obtained. CONTRAST: Isovue 370 VOLUME: 100 mL One or more dose reduction techniques were used (e.g., Automated exposure control, adjustment of the mA and/or kV according to patient size, use of iterative reconstruction technique). RADIATION DOSE SUMMARY: CTDlvol: 1049.63 mGy COMPARISON: None. FINDINGS: Thoracic Aorta: Lungs/pleura: Lungs are clear.No pleural effusion or pneumothorax. Pulmonary arteries: No evidence of pulmonary embolus. Cardiovascular: The heart is normal in size.The aorta is unremarkable. Pericardium: No effusion. Mediastinum: Unremarkable. Lymph nodes: No lymph node enlargement by CT size criteria. Bones: No acute osseous abnormality. Soft tissues: Unremarkable. Upper abdomen: Unremarkable. CT/CTA Chest W/WO Contrast IMPRESSION: No pulmonary embolism. No acute chest abnormality. Reading Location: [place] [address]
[2024-09-15 15:15] LABS: Anion Gap 13 (5-15); BUN 23 mg/dL (4-19); BUN/Creat Ratio 21.2 RATIO (10-20); Calcium,Total 9.6 mg/dL (7.6-11.0); Carbon Dioxide 22.5 mmol/L (21.0-32.0); Chloride 101 mmol/L (98-108); Creatinine, Serum 1.09 mg/dL (0.70-1.20); EST Glomerular Filtration Rate 69 (>60); Estimated Creatinine Clearance 101.75 ml/min (50-250); Glucose 84 mg/dL (70-99); Potassium 4.1 mmol/L (3.3-5.1); Sodium Level 137 mmol/L (133-145)
[2024-09-15 15:20] VITALS: BP 128/76; PULSE 89; RESP 18; O2SAT 97
[2024-09-15 17:00] VITALS: BP 134/74; BP 151/81; BP 154/91; PULSE 89; PULSE 91; PULSE 94
[2024-09-15 17:13] LABS: Troponin T High Sens 2 HR 6 ng/L (<=14)
[2024-09-15 17:39] VITALS: BP 151/84; PULSE 82; RESP 18; TEMP 36.6; O2SAT 99
== END 2024-09-15 17:40 | disposition home or self-care (01) ==
PROVIDERS: Emergency Provider Emergency Medicine; PCP Internal Medicine; Visit Provider Emergency Medicine
DX: R00.2 Palpitations (principal); R06.02 Shortness of breath; H53.8 Other visual disturbances; Z79.890 Hormone replacement therapy; E03.9 Hypothyroidism, unspecified; F17.290 Nicotine dependence, other tobacco product, uncomplicated
CPT/HCPCS: 71275; 80048; 83735; 84439; 84443; 84484; 85025; 85379; 93005; 99285; Q9967; A4216

== ENCOUNTER 2024-09-28 07:27 | Outpatient (RCR) | payer MEDICAID, SELFPAY ==
[2024-09-27 00:41] VITALS: BP 152/94; PULSE 74
== END 2024-10-02 10:18 | disposition home or self-care (01) ==
LOC: BHIOP 07:27
PROVIDERS: PCP Internal Medicine; Referring Provider Psychiatry & Neurology Psychiatry; Visit Provider Psychiatry & Neurology Psychiatry
DX: F43.10 Post-traumatic stress disorder, unspecified (principal); F60.3 Borderline personality disorder; F15.91 Other stimulant use, unspecified, in remission
CPT/HCPCS: H2020

== ENCOUNTER 2024-10-08 08:00 | Outpatient (RCR) | payer MEDICAID, SELFPAY ==
--- NOTE | 2024-10-08 14:00 | BH.COMM ---
Communication Note Communication with Client Communication Note: Patient completed IOP and presents today to start relapse prevention group which meets once weekly (1.5 hours) for 8 weeks. Case discussed with Dr. Umanzor with plan to admit with dx of F43.10
--- NOTE | 2024-10-08 15:11 | BH.MTP ---
Master Treatment Plan Patient Information Program Physician:: Dr. Sanders Primary Therapist:: Sandy BECKETT Psychiatric Diagnoses Psychiatric Diagnoses:: PTSD F43.1; Borderline personality disorder; Methamphetamine use disorder in full remission for 20 month Diagnosis Code(s):: F 43.1 Estimated LOS Estimated LOS (in weeks):: 8 Problem/Goal #1 Problem/Goal #1 Stated Goal:: client will maintain or see a reduction in symptoms AEB client score on the DSM 5 cross-cutting measure and improve client's daily functioning. Objectives Objective #1: Stated Objective: Client will continue to consistently apply healthy coping skills to maintain progress made in IOP tx. Interventions: Through group therapy, client will review warning signs and triggers as well as healthy coping skills learned in IOP tx to successfully maintain gains while transitioning into outpatient therapy. Discharge Criteria: Client will have accomplished this goal when client's score on the DSM-5 cross-cutting measure has maintained or reduced over a 8 week period. Target Date: 12/03/24 Review Date: 11/05/24 Status: open Objective #2: Stated Objective: Client will learn and utilize 2-3 maintenance strategies to prevent decompensation from original IOP DSM-5 scores. Interventions: Through group therapy, client will be provided with education on healthy maintenance behaviors, relapse prevention techniques, and healthy coping strategies. Discharge Criteria: Client will have accomplished this goal when can report using at least 2 maintenance skills to prevent decompensation compared to original IOP DSM-5 scores Target Date: 12/03/24 Review Date: 11/05/24 Status: open
== END 2024-10-26 23:59 ==
LOC: BHOG 08:00
PROVIDERS: PCP Internal Medicine; Referring Provider Psychiatry & Neurology Psychiatry; Visit Provider Psychiatry & Neurology Psychiatry
DX: F43.10 Post-traumatic stress disorder, unspecified (principal); F15.91 Other stimulant use, unspecified, in remission; F60.3 Borderline personality disorder
CPT/HCPCS: 90853

== ENCOUNTER 2024-10-21 08:51 | Emergency (ER) | payer MEDICAID, SELFPAY ==
[2024-10-21 08:52] VITALS: BP 141/88; PULSE 124; RESP 18; TEMP 36.8; O2SAT 99; BMI 44.0
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
--- NOTE | 2024-10-21 09:39 | CT_ITS ---
PROCEDURE: BRAIN/HEAD WITHOUT CONTRAST 10/21/2024 REASON FOR EXAM: HEADACHE, HISTORY OF SEIZURE TECHNIQUE: BRAIN/HEAD WITHOUT CONTRAST Coronal and Sagittal reconstruction series were provided. One or more dose reduction techniques were used (e.g., Automated exposure control, adjustment of the mA and/or kV according to patient size, use of iterative reconstruction technique. RADIATION DOSE SUMMARY: CTDlvol: 44.99 mGy DLP: 863.6 mGycm COMPARISON: Comparison is made with prior study dated September 20, 2023. FINDINGS: Brain: Normal CSF Spaces: Normal Sinuses/Mastoids: Clear at visualized levels Bones: Unremarkable Once again, there is evidence of an empty sella. CT/Brain/Head without Contrast IMPRESSION: NORMAL NONCONTRAST HEAD CT. Reading Location: [id number]
== END 2024-10-21 10:55 | disposition home or self-care (01) ==
PROVIDERS: Emergency Provider Emergency Medicine; PCP Internal Medicine; Visit Provider Emergency Medicine
DX: R51.9 Headache, unspecified (principal); G40.909 Epilepsy, unspecified, not intractable, without status epilepticus; I25.2 Old myocardial infarction; E03.9 Hypothyroidism, unspecified; F17.290 Nicotine dependence, other tobacco product, uncomplicated; F41.9 Anxiety disorder, unspecified
CPT/HCPCS: 70450; 99282

== ENCOUNTER 2024-10-27 07:14 | Outpatient (RCR) | payer MEDICAID, SELFPAY | END 2024-10-29 10:07 | disposition home or self-care (01) | LOC: BHOG 07:14 | PROVIDERS: PCP Internal Medicine; Referring Provider Psychiatry & Neurology Psychiatry; Visit Provider Psychiatry & Neurology Psychiatry | DX: Z00.00 Encounter for general adult medical examination without abnormal findings (principal) ==

== ENCOUNTER → 2024-10-27 | Outpatient (CLI) | payer MEDICAID, SELFPAY ==
[2024-10-27 13:49] LABS: Follicle Stimulating Hormone 3.5 mIU/mL; Free T3 1.9 pg/mL (2.18-3.98)
[2024-11-02 19:08] LABS: PROLACTIN 7.9 ng/mL (4.8-33.4)
== END | disposition home or self-care (01) ==
LOC: LAB 11:48
PROVIDERS: PCP Internal Medicine; Referring Provider Nurse Practitioner Family; Visit Provider Nurse Practitioner Family
DX: E23.6 Other disorders of pituitary gland (principal)
CPT/HCPCS: 36415; 82024; 82670; 83001; 83002; 84146; 84305; 84439; 84443; 84481

== ENCOUNTER 2024-11-19 16:08 | Emergency (ER) | payer MEDICAID, SELFPAY ==
[2024-11-19 16:09] VITALS: BP 128/103; PULSE 71; RESP 18; TEMP 37; O2SAT 99; BMI 40.0
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
[2024-11-19 16:31] VITALS: BP 133/62; PULSE 67; RESP 14; TEMP 36.6; O2SAT 99
== END 2024-11-19 16:38 | disposition home or self-care (01) ==
LOC: ED 16:35
PROVIDERS: Emergency Provider Emergency Medicine; PCP Internal Medicine; Referring Provider Emergency Medicine; Visit Provider Emergency Medicine
DX: Z76.0 Encounter for issue of repeat prescription (principal); E66.01 Morbid (severe) obesity due to excess calories; F41.9 Anxiety disorder, unspecified; E03.9 Hypothyroidism, unspecified; F17.290 Nicotine dependence, other tobacco product, uncomplicated; F15.91 Other stimulant use, unspecified, in remission; I25.2 Old myocardial infarction
CPT/HCPCS: 99282

== ENCOUNTER → 2024-12-07 | Outpatient (CLI) | payer MEDICAID, SELFPAY ==
[2024-12-07 10:19] LABS: Cholesterol 155 mg/dL (<=200); Low Density Lipoprotein Calc. 91 mg/dL; Triglycerides 98 mg/dL; Very Low Density Lipoprotein 20 mg/dL (5-40); cholesterol:hdl ratio screen 3.52
== END | disposition home or self-care (01) ==
PROVIDERS: PCP Internal Medicine; Referring Provider Nurse Practitioner Family; Visit Provider Nurse Practitioner Family
DX: E03.9 Hypothyroidism, unspecified (principal); E66.01 Morbid (severe) obesity due to excess calories; Z68.42 Body mass index [BMI] 45.0-49.9, adult
CPT/HCPCS: 36415; 80061; 84443

== ENCOUNTER → 2024-12-17 | Outpatient (CLI) | payer MEDICAID, SELFPAY ==
[2024-12-17 09:30] LABS: CORTISOL AM 0.84 ug/dL (6.02-18.40)
== END | disposition home or self-care (01) ==
PROVIDERS: PCP Internal Medicine; Visit Provider Internal Medicine
DX: E23.6 Other disorders of pituitary gland (principal)
CPT/HCPCS: 36415; 82533

== ENCOUNTER → 2024-12-18 | Outpatient (CLI) | payer MEDICAID, SELFPAY ==
--- NOTE | 2024-12-18 12:50 | MRI_ITS ---
PROCEDURE: BRAIN W/WO CONTRAST 12/18/2024 REASON FOR EXAM: EMPTY SELLA TECHNIQUE: BRAIN W/WO CONTRAST Multiplanar and multisequence images were obtained. CONTRAST: Debo scan VOLUME: 23 mL FINDINGS: Additional images obtained through the pituitary gland. There is only a minimal, partial empty sella, within the range of normal. There is no abnormal diffusion. There is no hydrocephalus. Normal brainstem. Normal cerebellum. No pathologic flow voids. Symmetric appearance of the orbits. No intracranial mass. No intracranial demyelination. Minimal left-sided maxillary mucosal thickening. Normal optic chiasm and infundibulum. Thin-section pituitary images demonstrate no suprasellar mass lesion. No abnormal intra sellar or infundibular enhancement. Normal cavernous sinuses and Meckel's cave. MRI/Brain W/WO Contrast IMPRESSION: Study within normal limits Reading [facility]
== END | disposition home or self-care (01) ==
LOC: OPMRI 12:26
PROVIDERS: PCP Internal Medicine; Referring Provider Internal Medicine; Visit Provider Internal Medicine
DX: E23.6 Other disorders of pituitary gland (principal)
CPT/HCPCS: 70553; A9575

== ENCOUNTER 2025-01-05 04:55 | Emergency (ER) | payer MEDICAID, SELFPAY ==
[2025-01-05 04:55] VITALS: BP 123/67; PULSE 87; RESP 18; TEMP 36.6; O2SAT 100; O2SAT 99; BMI 41.5
[2025-01-05 04:59] VITALS: BP 123/67; PULSE 88; RESP 16; TEMP 36.6; O2SAT 100
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
[2025-01-05 05:16] VITALS: BP 123/67; PULSE 84; RESP 16; TEMP 36.6; O2SAT 100
--- OUTSIDE RECORDS SUMMARY | 2025-01-05 05:17 | XMS RPT_ITS | CCD ---
Author Organization [facility] Care Team Providers Care Quality Assurance Assessor Name Role Phone Unavailable Primary Care Provider Unavailabl e [place] BLANKET FOLDER, Zakiya S Primary Care Provider [place] BLANKET FOLDER, Zakiya S Primary Care Provider CASANDRA PALUMBO Admitting Unavailable CASANDRA PALUMBO Attending Unavailable CASANDRA PALUMBO Consulting Unavailable Horace Willingham MD Unavailable Labor DO, Leti T Unavailable Labor DO, Leti T Primary Care Provider Horace Willingham MD Unavailable [phone] Jean Claude Joyce MD Primary Care Provider TONIO BUTLER Attending Unavailable ESSENCE, JEAN CLAUDE Referring Unavailable ESSENCE, JEAN CLAUDE Primary Care Unavailable Jean Claude Joyce MD Primary Care Provider [phone] [place] BLANKET FOLDER, Zakiya S Primary Care Provider [phone] Labor DO, Leti T Unavailable [phone] ESSENCE, JEAN CLAUDE G Primary Care Unavailable ESSENCE, JEAN CLAUDE G Primary Care Unavailable CHANEL SANTOYO Attending Unavailable NICOLLE, DERIC Attending Unavailable SELF Referring Unavailable LABOR, LETI T Primary Care Unavailable LABOR, LETI T Primary Care Unavailable JONN CHENG H Attending Unavailable ALISIA CHENGIN H Referring Unavailable LABOR, LETI T Primary Care Unavailable FATEMEHWEEL, HELWA Admitting Unavailable FATEMEHWEDORCAS, HELWA Attending Unavailable ESSENCE, JEAN CLAUDE G Primary Care Unavailable NICOLLE, DERIC Referring Unavailable ESSENCE, JEAN CLAUDE G Primary Care Unavailable LYNNPAT BAE L Referring Unavailable ESSENCE, JEAN CLAUDE G Primary Care Unavailable NICOLLE, DERIC Referring Unavailable ESSENCE, JEAN CLAUDE G Primary Care Unavailable NICOLLE, DERIC Referring Unavailable ESSENCE, JEAN CLAUDE G Primary Care Unavailable KALFAS, JONN H Attending Unavailable NICOLLE, DERIC Referring Unavailable ESSENCE, JEAN CLAUDE G Primary Care Unavailable NICOLLE, DERIC Referring Unavailable ESSENCE, JEAN CLAUDE G Primary Care Unavailable KALFAS, JONN H Admitting Unavailable KALFAS, JONN H Attending Unavailable LABOR, LETI T Primary Care Unavailable ESSENCE, JEAN CLAUDE G Primary Care Unavailable JUAN LUIS MARTIN Attending Unavailable KALFAS, JONN H Attending Unavailable NICOLLE, DERIC Referring Unavailable ESSENCE, JEAN CLAUDE G Primary Care Unavailable ESSENCE, JEAN CLAUDE G Primary Care Unavailable Shyam, Mariana Referring Unavailable ShlomoroMariana Attending Unavailable Essence, Jean Claude Primary Care Unavailable [place], Jean Claude Attending Unavailable Essence, Jean Claude Primary Care Unavailable [place], Jean Claude Referring Unavailable [place], Jean Claude Attending Unavailable [place], Jean Claude Referring Unavailable [place], Jean Claude Primary Care Unavailable [place], Jean Claude Primary Care Unavailable [place], Jean Claude Referring Unavailable UngkarlirWilliYina Attending Unavailable Demondauro, Mariana Referring Unavailable Essence, Jean Claude Primary Care Unavailable DiLauroMariana Attending Unavailable [place], Jean Claude Primary Care Unavailable Ghosh, Josafat Referring Unavailable Ghosh, Josafat Attending Unavailable Zaid Foley Attending Unavailable [place], Jean Claude Primary Care Unavailable [place], Jean Claude Primary Care Unavailable Le, Lopez Attending Unavailable Essence, Jean Claude Primary Care Unavailable Le, Lopez Attending Unavailable Essence, Jean Claude Attending Unavailable Essence, Jean Claude Primary Care Unavailable [place], Jean Claude Referring Unavailable DiLauro, Mariana Referring Unavailable Demondauro Mariana Attending Unavailable [place], Jean Claude Primary Care Unavailable Essence, Jean Claude Primary Care Unavailable Essence, Jean Claude Referring Unavailable Ungerer, Yina Attending Unavailable Claudia Camacho Attending Unavailable [place], Jean Claude Primary Care Unavailable Essence, Jean Claude Referring Unavailable Essence, Jean Claude Attending Unavailable Essence, Jean Claude Primary Care Unavailable Essence, Jean Claude Referring Unavailable Mariana Howe Referring Unavailable [place], Jean Claude Primary Care Unavailable Mariana Howe Attending Unavailable Essence, Jean Claude Primary Care Unavailable Ungerer, Ynia Referring Unavailable Ungerer, Yina Attending Unavailable Nubia Solis Attending Unavailable [place], Jean Claude Primary Care Unavailable Ronni West Attending Unavailable [place], Jean Claude Primary Care Unavailable Essence, Jean Claude Primary Care Unavailable Ungerer, Yina Attending Unavailable Ungerer, Yina Referring Unavailable Essence, Jean Claude Attending Unavailable Essence, Jean Claude Primary Care Unavailable Essence, Jean Claude Primary Care Unavailable Chris Ghosho Attending Unavailable Mariana Howe Attending Unavailable [place], Jean Claude Primary Care Unavailable Mariana Howe Referring Unavailable Allergies Allergy Classification Reported Allergen(s) Allergy Type Date of Onset Reaction(s) Facility (9 sources) Honey bee venom Propensity to adverse reactions 2 [facility] (20 sources) bee venom Propensity to adverse reactions 2 Other: See Comments [facility] (1 source) VENOM-HONEY BEE; Translations: [VENOM-HONEY BEE] Propensity to adverse reactions to drug (disorder) 3 [facility] Medications Current Medications Medication Drug Class(es) Dates Sig (Normalized) Sig (Original) acetaminophen 500 mg oral tablet (20 sources) Start: 03-20-2024 take 2 tablets by mouth every eight hours as needed acetaminophen (TYLENOL) 500 mg tablet Take 2 tablets by mouth every 8 hours as needed for pain. 03/20/2024 Active Start: 04-18-2023 take 2 tablets by mo uth every four hours as needed acetaminophen (Tylenol) 500 MG tablet 1,000 mg every 4 hours as needed. 04/18/2023 Active Start: 08-27-2022 End: 08-27-2022 acetaminophen (Tylenol) tabl et 650 mg Start: 08-06-2021 acetaminophen (TYLENOL) tablet 650 mg [id number] 200 actuat albuterol 0.09 mg/actuat metered dose inhaler (1 source) beta2-Adrenergic Agonist Start: 08-06-2021 albut jimena sulfate HFA 108 (90 Base) MCG/ACT inhaler 2 puff azithromycin (ZITHROMAX) 500 mg in dextrose 5 % 250 mL IVPB (2 sources) Start: 08-07-2021 azithromycin (ZITHROMAX) 500 mg in dextrose 5 % 250 mL IVPB Start: 08-06-2021 End: 08-06-2021 azithromycin (ZITHROMAX) 500 mg in dextrose 5 % 250 mL IVPB busPIRone hydrochloride 10 mg oral tablet (20 sources) Start: 01-07-2024 take 1 tablet by mouth three times daily busPIRone (BUSPAR) 10 mg tablet Take 10 mg by mouth three times a day. 01/07/2024 Active Start: 01-07-2024 take 1 tablet by vale th three times daily busPIRone (BUSPAR) 5 mg tablet Take 1 tablet by mouth three times a day. 01/07/2024 Active Start: 01-07-2024 take 1 tablet by vale th every twelve hours busPIRone (BUSPAR) 5 mg tablet Take 1 tablet by mouth every 12 hours. 01/07/2024 Active take 1 tablet by vale th twice daily busPIRone (Buspar) 10 MG tablet Take 10 mg by mouth 2 times daily. Active cefTRIAXone sodium 1,000 mg in sodium chloride 0.9 % 100 mL IVPB (add-vantage) (1 source) Start: 08-07-2021 cefTRIAXone so dium 1,000 mg in sodium chloride 0.9 % 100 mL IVPB (add-vantage) docusate sodium 50 mg / sennosides, detention 8.6 mg oral tablet (20 sources) Start: 03-20-2024 take 2 tablets by mouth twice daily senna-docusate (SENNA-S) 8.6-50 mg per tablet Take 2 tablets by mouth two times a day. 26 tablet 03/20/2024 Active 0.4 ml enoxaparin sodium 100 mg/ml prefilled syringe (1 source) Low Molecular Weight Heparin Start: 08-06-2021 enoxaparin (LOVENOX) injection 40 mg Start: 08-06-2021 enoxaparin (LO VENOX) injection 40 mg escitalopram 20 mg oral tablet (1 source) Serotonin Reuptake Inhibitor Start: 05-15-2023 Escitalopram Oxalate Active MG May 15, 2023 12:00am 12 hr guaiFENesin 600 mg extended release oral tablet (1 source) Start: 08-06-2021 guaiFENesin (MUCINEX) extended release tablet 600 mg ibuprofen 600 mg oral tablet (9 sources) Nonsteroidal Anti-inflammatory Drug Start: 11-22-2022 End: 12-06-2022 take 1 tablet by mouth every six hours as needed for pain ibuprofen 600 MG tablet Take 1 tablet (600 mg) by mouth every 6 hours as needed for mild pain (1-3) for up to 14 days. 56 tablet 0 11/22/2022 12/06/2022 Active Start: 12-25-2019 End: 08-06-2021 take 1 tablet by mouth every six hours as needed for pain ibuprofen (ADVIL;MOTRIN) 600 MG tablet Take 1 tablet by mouth every 6 hours as needed for Pain or Fever 20 tablet 0 12/25/2019 08/06/2021 Discontinued (LIST CLEANUP) lamoTRIgine 200 mg oral tablet (20 sources) Mood Stabilizer, Anti-epileptic Agent Start: 11-12-2023 take 1 tablet by mouth once daily lamoTRIgine (LaMICtal) 200 MG tablet Indications: PTSD, anxiety Take 200 mg by mouth daily. 11/12/2023 Active Start: 10-08-2023 LAMICTAL 100 m g tablet Take 200 mg by mouth. 10/08/2023 Active levoFLOXacin 750 mg oral tablet (3 sources) Quinolone Antimicrobial Start: 08-06-2021 End: 2021 take 1 tablet by mouth once daily levoFLOXacin (LEVAQUIN) 750 MG tablet Take 1 tablet by mouth daily for 10 days 10 tablet 0 08/06/2021 2021 Active levothyroxine sodium 0.15 mg oral tablet (20 sources) l-Thyroxine Start: 05-15-2023 take 1 tablet by mouth once daily levothyroxine (SYNTHROID) 150 mcg tablet Take 150 mcg by mouth once daily. 10/09/2023 Active Start: 05-15-2023 Levothyroxine Active MCG May 15, 2023 12:00am Start: 12-03-2019 take 1 tablet by vale th once daily levothyroxine (SYNTHROID) 175 MCG tablet Take 1 tablet by mouth daily 30 tablet 0 12/25/2019 Active End: 12-03-2019 take 1 tablet by mouth once daily levothyroxine (SYNTHROID) 150 MCG tablet Take 150 mcg by mouth Daily 0 12/03/2019 Discontinued (ERROR) lidocaine 0.05 mg/mg medicated patch (7 sources) Antiarrhythmic, Amide Local Anesthetic Start: 03-20-2024 End: 03-25-2024 lidocaine (LIDODERM) 5 % Apply 2 Patches across incision as directed once daily for 5 days. Wear for 12 hours, then remove for 12 hours. 10 Patch 03/20/2024 03/25/2024 Active Start: 11-22-2022 End: 11-22-2022 Lidocaine 4 % patch 1 patch meclizine hydrochloride 25 m g oral tablet (5 sources) Antiemetic Start: 05-15-2023 Meclizine Acti ve MG May 15, 2023 12:00am Start: 06-25-2022 End: 06-30-2022 take 1 tablet by mouth three times daily as needed for dizziness meclizine (Antivert) 25 MG tablet Take 1 tablet (25 mg) by mouth 3 times daily as needed for dizziness for up to 5 days. 15 tablet 0 06/25/2022 06/30/2022 Active meloxicam 15 mg oral tablet (20 sources) Nonsteroidal Anti-inflammatory Drug Start: 05-15-2023 Meloxicam Active MG May 15, 2023 12:00am Start: 12-04-2022 End: 01-13-2024 meloxicam (MOBIC) 15 mg tabl et Take 15 mg by mouth. 10/22/2023 Active methylPREDNISolone (1 source) Corticosteroid Start: 03-27-2024 End: 04-02-2024 methylPREDNISolone (MEDROL, KITA,) 4 mg Dose-Pack As instructed per package 21 tablet 03/27/2024 04/02/2024 Active naproxen 500 mg oral tablet (2 sources) Nonsteroidal Anti-inflammatory Drug Start: 08-27-2022 End: 09-11-2022 take 1 tablet by mouth in the morning naproxen (Naprosyn) 500 MG tablet Take 1 tablet (500 mg) by mouth in the morning and 1 tablet (500 mg) in the evening. Take with meals. Do all this for 15 days. 30 tablet 0 08/27/2022 09/11/2022 Active nicotine 2 mg chewing gum (1 source) Cholinergic Nicotinic Agonist Start: 05-15-2023 Nicotine (Polacrilex) Active MG May 15, 2023 12:00am ondansetron (ZOFRAN-ODT) disintegrating tablet 4 mg (1 source) Start: 08-06-2021 ondansetron (ZOFRAN-ODT) disintegrating tablet 4 mg oxyCODONE hydrochloride 5 mg oral tablet (19 sources) Opioid Agonist Start: 05-06-2024 End: 05-13-2024 take 1 tablet by mouth every twelve hours as needed for pain oxyCODONE IR (ROXICODONE) 5 mg immediate release tablet Indications: Postoperative pain after spinal surgery Take 1 tablet by mouth every 12 hours as needed for pain for up to 7 days. 14 tablet 05/06/2024 05/13/2024 Active Start: 04-26-2024 End: 05-03-2024 take 1 tablet by mouth every eight hours as needed for pain oxyCODONE IR (ROXICODONE) 5 mg immediate release tablet Indications: Postoperative pain after spinal surgery Take 1 tablet by mouth every 8 hours as needed for pain for up to 7 days. Patient should start on April 26, 2024. 21 tablet 04/26/2024 05/03/2024 Active Start: 04-20-2024 End: 04-27-2024 take 1 tablet by mouth every six hours as needed for pain oxyCODONE IR (ROXICODONE) 5 mg immediate release tablet Indications: Postoperative pain after spinal surgery Take 1 tablet by mouth every 6 hours as needed for pain for up to 7 days. 28 tablet 04/20/2024 04/27/2024 Active Start: 03-20-2024 End: 04-17-2024 take 1 tablet by mouth every four hours as needed for pain oxyCODONE IR (ROXICODONE) 5 mg immediate release tablet Indications: Postoperative pain after spinal surgery Take 1 tablet by mouth every 4 hours as needed for pain for up to 7 days. 42 tablet 04/03/2024 04/10/2024 Discontinued polyethylene glycol 3350 [id number] mg powder for oral solution (1 source) Osmotic Laxative Start: 08-06-2021 polyethylene glycol (GLYCOLAX) packet 17 g predniSONE 20 mg oral tablet (6 sources) Start: 08-26-2022 End: 08-31-2022 take 2 tablets by mouth once daily predniSONE (Deltasone) 20 MG tablet Take 2 tablets (40 mg) by mouth daily for 5 days. 10 tablet 0 08/26/2022 08/31/2022 Active Start: 08-26-2022 End: 08-26-2022 predniSONE (Deltasone) table t 40 mg tiZANidine 4 mg oral tablet (15 sources) Central alpha-2 Adrenergic Agonist Start: 03-23-2024 End: 06-09-2024 take 1 tablet by mouth every six hours as needed tiZANidine (ZANAFLEX) 4 mg tablet Take 1 tablet by mouth every 6 hours as needed. 120 tablet 1 04/10/2024 06/09/2024 Active Completed/Discontinued Medications Medication Drug Class(es) Dates Sig (Normalized) Sig (Original) amoxicillin 875 mg / clavulanate 125 mg oral tablet (4 sources) Penicillin-class Antibacterial Start: 08-27-2022 End: 08-27-2022 take 1 tablet by mouth once 1 tablet (875 mg), Oral, Once, On Sat08/27/22 at 1630, For 1 dose Suspected Indication (Select all that apply): Other Other Abx Indication: dental abscess Start: 08-27-2022 End: 09-06-2022 take 1 tablet by mouth every twelve hours amoxicillin-clavulanate (Augmentin) 875-125 MG tablet Take 1 tablet by mouth in the morning and 1 tablet in the evening. Do all this for 10 days. 20 tablet 0 08/27/2022 09/06/2022 Active benzocaine 15 mg / menthol 2.6 mg oral lozenge (4 sources) Standardized Chemical Allergen Start: 12-25-2019 End: 08-06-2021 Benzocaine-Menthol (CEPACOL EXTRA STRENGTH) 15-2.6 MG LOZG lozenge Take 1 lozenge by mouth every 2 hours as needed for Sore Throat 30 lozenge 0 12/25/2019 08/06/2021 Discontinued (LIST CLEANUP) cefTRIAXone (ROCEPHIN) 1000 mg IVPB in NS 50ml minibag (1 source) Start: 08-06-2021 End: 08-06-2021 cefTRIAXone (ROCEPHIN) 1000 mg IVPB in NS 50ml minibag cephalexin 500 mg oral capsule (6 sources) Cephalosporin Antibacterial Start: 08-26-2022 End: 08-31-2022 cephalexin (Keflex) 500 MG capsule Take 1 capsule (500 mg) by mouth in the morning and 1 capsule (500 mg) at noon and 1 capsule (500 mg) in the evening and 1 capsule (500 mg) before bedtime. Do all this for 5 days. 20 capsule 0 08/26/2022 08/27/2022 Discontinued Start: 06-25-2022 End: 06-30-2022 take 1 capsule by mouth twice daily cephalexin (Keflex) 500 MG capsule Take 1 capsule (500 mg) by mouth 2 times daily for 5 days. 10 capsule 0 06/25/2022 06/30/2022 Active dexamethasone 4 mg oral tablet (1 source) Corticosteroid Start: 12-25-2019 End: 12-25-2019 dexamethasone (DECADRON) tablet 8 mg diphenhydrAMINE hydrochloride 25 mg oral tablet (2 sources) Histamine-1 Receptor Antagonist Start: 08-26-2022 End: 08-26-2022 diphenhydrAMINE (BENADryl) tablet/capsule 25 mg iopamidol (ISOVUE-370) 76 % injection 75 mL (1 source) Start: 08-06-2021 End: 08-06-2021 iopamidol (ISOVUE-370) 76 % injection 75 mL iopamidol (Isovue-370) 76 % injection 75 mL (2 sources) Start: 08-27-2022 End: 08-27-2022 iopamidol (Isovue-370) 76 % injection 75 mL 1 ml ketorolac tromethamine 30 mg/ml injection (4 sources) Nonsteroidal Anti-inflammatory Drug, Cyclooxygenase Inhibitor Start: 10-22-2024 End: 10-22-2024 keTORolac 30 mg injection (Toradol) Start: 10-22-2024 End: 10-22-2024 30 mg, INTRAMUSCULAR, ONCE, 1 dose, On Alma Delia 10/22/24 at 1930, Ketorolac (Toradol) is indicated for the short-term (up to 5 days) management of moderately severe acute pain. Continuation of ketorolac (Toradol) beyond 5 days increases the risk of developing serious adverse events. Please verify the duration of therapy for ketorolac (Toradol) Start: 08-27-2022 End: 08-27-2022 ketorolac (Toradol) injectio n 15 mg Methocarbamol (4 sources) Muscle Relaxant Start: 03-21-2024 End: 03-23-2024 take 1 tablet by mouth four times daily methocarbamol 1,000 mg tablet Take 1 tablet by mouth four times daily. 28 tablet 03/21/2024 03/23/2024 Discontinued (Lack of Efficacy) Start: 03-21-2024 take 1 tablet by vale th four times daily methocarbamol 1,000 mg tablet Take 1 tablet by mouth four times daily. 28 tablet 03/21/2024 Active Start: 03-20-2024 End: 03-21-2024 take 1 tablet by mouth every eight hours as needed methocarbamol (ROBAXIN) 750 mg tablet Take 1 tablet by mouth every 8 hours as needed for muscle spasm. 90 tablet 03/20/2024 03/21/2024 Discontinued 24 hr methylphenidate hydrochloride 54 mg extended release oral tablet (5 sources) Central Nervous System Stimulant End: 08-06-2021 take 1 tablet by mouth once daily in the morning methylphenidate (CONCERTA) 54 MG extended release tablet Take 54 mg by mouth every morning. 0 08/06/2021 Discontinued (LIST CLEANUP) 1 ml morphine sulfate 4 mg/ml injection (1 source) Opioid Agonist Start: 08-05-2021 End: 08-06-2021 morphine sulfate (PF) injection 4 mg QUEtiapine 50 mg oral tablet (20 sources) Atypical Antipsychotic Start: 11-12-2023 End: 01-13-2024 take 1 tablet by mouth once daily QUEtiapine (SEROquel) 50 MG tablet Indications: Generalized Anxiety Disorder , Posttraumatic Stress Disorder Take 50 mg by mouth Nightly. 11/12/2023 01/13/2024 Discontinued (Dose adjustment) Start: 10-22-2023 QUEtiapine (SE ROQUEL) 50 mg tablet Take 50 mg by mouth two times a day. 300 at HS 10/22/2023 Active Start: 10-22-2023 take 1 tablet by vale th four times daily QUEtiapine (SEROQUEL) 25 mg tablet Take 25 mg by mouth four times daily. 10/22/2023 Active Start: 10-22-2023 End: 01-13-2024 take 1 tablet by mouth twice daily QUEtiapine (SEROquel) 25 MG tablet Indications: Generalized Anxiety Disorder , Posttraumatic Stress Disorder Take 25 mg by mouth 2 times daily. 11/12/2023 01/13/2024 Discontinued (Dose adjustment) 50 ml sodium chloride 9 mg/m l injection (8 sources) Start: 08-27-2022 End: 08-27-2022 sodium chloride 0.9 % bolus 1,000 mL Start: 06-25-2022 End: 06-25-2022 sodium chloride 0.9 % bolus 1,000 mL Start: 08-06-2021 sodium chlorid e flush 0.9 % injection 5-40 mL Start: 08-06-2021 sodium chlorid e flush 0.9 % injection 5-40 mL Start: 08-06-2021 End: 08-06-2021 0.9 % sodium chloride infusi on Problems Active Problems Problem Classification Problem Date Documented Date Episodic/Chronic Administrative/social admission (2 sources) Encounter for issue of repeat prescription; Translations: [Persons encountering health services in other specified circumstances] Onset: 01-16-2024 Episodic Anxiety disorders (20 sources) Posttraumatic stress disorder; Translations: [Post-traumatic stress disorder, unspecified] Onset: 03-03-2024 03-03-2024 Chronic Conditions associated with dizziness or vertigo (3 sources) Dizziness; Translations: [Dizziness and giddiness] 05-15-2023 Episodic Deficiency and other anemia (1 source) Anemia; Translations: [Anemia, unspecified] 02-10-2024 Episodic Diabetes mellitus without complication (20 sources) Prediabetes; Translations: [Prediabetes] Onset: 12-04-2023 12-04-2023 Episodic Disorders of teeth and jaw (2 sources) Dental abscess; Translations: [Periapical abscess without sinus] Episodic Headache; including migraine (2 sources) Refractory migraine without aura; Translations: [Migraine without aura, intractable, without status migrainosus] Onset: 10-24-2024 10-24-2024 Chronic Headache; including migraine (1 source) Headache; Translations: [Headache, unspecified headache type] 10-22-2024 Episodic Headache; including migraine (2 sources) Headache; including migraine; Translations: [Headache, unspecified headache type] Onset: 10-22-2024 Other acquired deformities (9 sources) Acquired spondylolisthesis; Translations: [Spondylolisthesis, site unspecified] 10-16-2023 Episodic Other aftercare (1 source) Removal of sutures done; Translations: [Encounter for removal of sutures] 04-03-2024 Episodic Other connective tissue disease (4 sources) Retained foreign body; Translations: [Residual foreign body in soft tissue] 10-16-2023 Episodic Other connective tissue disease (1 source) History of lumbar fusion; Translations: [Arthrodesis status] 04-30-2024 Episodic Other endocrine disorders (1 source) Other disorders of pituitary gland; Translations: [Other disorders of pituitary gland] Onset: 12-25-2024 Chronic Other lower respiratory disease (1 source) Cough; Translations: [Cough] Onset: 08-06-2021 08-06-2021 Episodic Other nervous system disorders (1 source) Other chronic pain; Translations: [Chronic bilateral low back pain with bilateral sciatica] Onset: 12-27-2023 Chronic Other nervous system disorders (7 sources) Postoperative pain ; Translations: [Other acute postprocedural pain] 03-21-2024 Episodic Other nutritional; endocrine; and metabolic disorders (16 sources) Morbid obesity; Translations: [Morbid (severe) obesity due to excess calories] Onset: 12-10-2022 12-10-2022 Chronic Other nutritional; endocrine; and metabolic disorders (10 sources) Body mass index 40+ - severely obese; Translations: [Morbid (severe) obesity due to excess calories] 12-04-2023 Chronic Other nutritional; endocrine; and metabolic disorders (4 sources) Morbid (severe) obesity due to excess calories; Translations: [Morbid (severe) obesity due to excess calories (HCC)] Onset: 12-04-2023 Chronic Other nutritional; endocrine; and metabolic disorders (4 sources) Body mass index (BMI) 45.0-49.9, adult; Translations: [Body mass index (BMI) 45.0-49.9, adult (HCC)] Onset: 12-04-2023 Chronic Other nutritional; endocrine; and metabolic disorders (20 sources) Severe obesity; Translations: [Class 2 severe obesity due to excess calories with serious comorbidity and body mass index (BMI) of 39.0 to 39.9 in adult] Onset: 03-03-2024 03-03-2024 Chronic Other nutritional; endocrine; and metabolic disorders (1 source) Body mass index (BMI) 39.0-39.9, adult; Translations: [Class 2 severe obesity due to excess calories with serious comorbidity and body mass index (BMI) of 39.0 to 39.9 in adult ([facility])] Onset: 03-03-2024 Chronic Other nutritional; endocrine; and metabolic disorders (1 source) Obesity, unspecified; Translations: [Obesity, unspecified] Onset: 01-16-2024 Chronic Other nutritional; endocrine; and metabolic disorders (1 source) H/O: Disorder; Translations: [Personal history of other endocrine, nutritional and metabolic disease] 02-10-2024 Episodic Other skin disorders (4 sources) Facial swelling ; Translations: [Localized swelling, mass and lump, head] Episodic Other upper respiratory disease (1 source) Bleeding from nose; Translations: [Epistaxis] Episodic Other upper respiratory infections (4 sources) Viral pharyngitis; Translations: [Sore throat symptom] 01-08-2024 Episodic Residual codes; unclassified (1 source) H/O Spinal surgery; Translations: [Other specified postprocedural states] 04-30-2024 Episodic Spondylosis; intervertebral disc disorders; other back problems (1 source) Lumbar spondylosis; Translations: [Spondylosis without myelopathy or radiculopathy, lumbar region] 12-04-2022 Chronic Substance-related disorders (20 sources) History of drug abuse; Translations: [Other psychoactive substance abuse, in remission] Onset: 03-03-2024 03-03-2024 Chronic Thyroid disorders (20 sources) Acquired hypothyroidism; Translations: [Hypothyroidism, unspecified] Onset: 03-03-2024 03-03-2024 Chronic Unclassified (1 source) Repeated prescription; Translations: [Encounter for medication refill] Unclassified (1 source) Class 2 severe obesity due to excess calories with serious comorbidity and body mass index (BMI)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 98.0 fL [facility] Platelet mean volume (Bld) [Entitic vol] 8.3 fL 7.4 - 12.4 fL [facility] Platelets (Bld) [#/Vol] 346 10*3/uL 140 - 440 10*3/uL [facility] RBC (Bld) [#/Vol] 5.05 10*6/uL 3.8 - 5.20 10*6/uL [facility] WBC (Bld) [#/Vol] 14.5 10*3/uL High 3.6 - 10.7 10*3/uL [facility] CT Maxillofacial region W co ntrast Pako 08-27-2022 Left maxillary first bicuspid periapical abscess. Overlying 11 mm soft tissue abscess. Mild left facial cellulitis. Mild reactive lymphadenopathy. Multiple dental caries and multifocal periodontal disease. Report Dictated on Electronically Signed By: Blanca Bertrand Electronically Signed Date/Time: 08/27/2022 4:24 PM [facility] 1990 [id number] Exam Date/Time: 08/27/2022 16:07 Procedure: CT MAXILLOFACIAL W IV CONTRAST Ordering Provider: SANDERS DANIEL Reason For Exam: left periorbital and left maxillary swelling, concern for abscess CT FACIAL BONES with contrast: CLINICAL INDICATION: left periorbital and left maxillary swelling, concern for abscess TECHNIQUE: Transaxial sequence through the facial bones following the administration of 75 cc of Isovue-370 intravenous contrast. Multiplanar reconstruction imaging was performed Dose reduction was employed with automated exposure control. COMPARISON: None. FINDINGS: Facial bones: No fracture identified. There is a periapical lucency adjacent to the left maxillary first bicuspid. Associated breakthrough of the buccal cortex. Findings are compatible with a periapical abscess. Abscess extends into the soft tissues immediately ventral to the periapical abscess. This soft tissue abscess measures 8 x 5 x 11 mm (series 2 image 4). Multiple dental caries. Additional smaller maxillary and mandibular periapical lucencies, compatible with periodontal disease. Orbits: No orbital emphysema. No evidence of globe rupture or lens displacement.. No intraorbital inflammation. No intraorbital hematoma. Paranasal sinuses: Mild mucosal thickening in the left maxillary sinus.. Surrounding soft tissues: See facial bone findings. Mild left periorbital preseptal subcutaneous edema. No subcutaneous gas. Mildly prominent bilateral submandibular lymph nodes, measuring up to 19 mm x 10 mm. [facility] Blanca Bertrand M D - 08/27/2022 Patient Name: [facility]RANA [facility] 1990 [id number] Exam Date/Time: 08/27/2022 16:07 Procedure: CT MAXILLOFACIAL W IV CONTRAST Ordering Provider: SANDERS DANIEL Reason For Exam: left periorbital and left maxillary swelling, concern for abscess CT FACIAL BONES with contrast: CLINICAL INDICATION: left periorbital and left maxillary swelling, concern for abscess TECHNIQUE: Transaxial sequence through the facial bones following the administration of 75 cc of Isovue-370 intravenous contrast. Multiplanar reconstruction imaging was performed Dose reduction was employed with automated exposure control. COMPARISON: None. FINDINGS: Facial bones: No fracture identified. There is a periapical lucency adjacent to the left maxillary first bicuspid. Associated breakthrough of the buccal cortex. Findings are compatible with a periapical abscess. Abscess extends into the soft tissues immediately ventral to the periapical abscess. This soft tissue abscess measures 8 x 5 x 11 mm (series 2 image 4). Multiple dental caries. Additional smaller maxillary and mandibular periapical lucencies, compatible with periodontal disease. Orbits: No orbital emphysema. No evidence of globe rupture or lens displacement.. No intraorbital inflammation. No intraorbital hematoma. Paranasal sinuses: Mild mucosal thickening in the left maxillary sinus.. Surrounding soft tissues: See facial bone findings. Mild left periorbital preseptal subcutaneous edema. No subcutaneous gas. Mildly prominent bilateral submandibular lymph nodes, measuring up to 19 mm x 10 mm. IMPRESSION: Left maxillary first bicuspid periapical abscess. Overlying 11 mm soft tissue abscess. Mild left facial cellulitis. Mild reactive lymphadenopathy. Multiple dental caries and multifocal periodontal disease. Report Dictated on Electronically Signed By: Blanca Bertrand Electronically Signed Date/Time: 08/27/2022 4:24 PM EDT [facility] Radiology Study observation (narrative) [facility] christopher CT Maxillofacial region W co ntrast IVOrdered By: Blanca Bertrand on 08-27-2022 [employer] Work Phone: Fibrin D-dimer FEU (PPP) [Ma ss/Vol]on 08-27-2022 Interpretation and review of laboratory results Normal [facility] D-Dimer values of <0.50 mg/L FEU can be used in combination with a pre-test probability model (e.g. Well's) to exclude pulmonary embolism (PE) disease, as well as an aid in the diagnosis of deep vein thrombosis (DVT). [facility] - Chemistry and C hemistry - challengeon 08-27-2022 Procalcitonin [Mass/Vol] 0.02 ng/mL 0.00 - 0.09 ng/mL [facility] HCG.beta subunit Qn Females < 5 mIU/mL [facility] Troponin I.cardiac [Mass/Vol] ng/mL 0.000 - 0.034 ng/mL [facility] Lactate [Moles/Vol] 1.9 mmol/L 0.7 - 2. 0 mmol/L [facility] - Coagulationon 0 08-27-2022 Fibrin D-dimer FEU (PPP) [Mass/Vol] 0.31 mg/L NINF - 0.50 mg/L [facility] No Panel Informationon 08-27 P Hensel 30 degrees [facility] FL Interval 148 ms [facility] QRS Hensel 45 degrees [facility] QRSD Interval 98 ms [facility] QT Interval 352 ms [facility] QTC Interval 468 ms [facility] T Wave Hensel 34 degrees [facility] SINUS TACHYCARDIA RIGHT ATRIAL ABNORMALITY BASELINE WANDER IN LEAD(S) II,III,aVF Compared to ECG 06/25/2022 10:03:07 Sinus rhythm no longer present Electronically Signed On 08-27-2022 15:10:03 EDT by Nesha Alfaro CV Nesha Whitney MD - 08/27/2022 IMPRESSION: SINUS TACHYCARDIA RIGHT ATRIAL ABNORMALITY BASELINE WANDER IN LEAD(S) II,III,aVF Compared to ECG 06/25/2022 10:03:07 Sinus rhythm no longer present Electronically Signed On 08-27-2022 15:10:03 EDT by Nesha Alfaro [facility] Values in should double every 2 to 3 days for the first 6 weeks. Elevated concentrations of human chorionic gonadotropin (hCG) measured in the first trimester of are observed in normal , but may serve as an indication of chorionic carcinoma, hydatiform mole, or multiple . Decreasing hCG concentrations indicate threatened or missed , recent termination of , ectopic , gestosis or intrauterine . Maegan- and postmenopausal females may have detectable hCG concentrations (< or = to 14 mIU/mL) due to pituitary production of hCG. Serum follicle-stimulating hormone measurement may aid in ruling-out in this population. Cutoffs of greater than 20 to 45 mIU/mL have been suggested and are method dependent. False-elevations (called phantom human chorionic gonadotropin: hCG) may occur with patients who have human antianimal or heterophilic antibodies. Some specimens may not dilute linearly due to abnormal forms of hCG. Elevated hCG concentrations not associated with are found in patients with other diseases such as tumors of the germ cells, ovaries, bladder, pancreas, stomach, lungs, and liver. This test is not intended to detect or monitor tumors or gestational trophoblastic disease. [facility] Interpretation and review of laboratory results Normal [facility] Procalcitonin [Mass/Vol]on 0 08-27-2022 Interpretation and review of laboratory results Normal [facility] PCT <0.50 = Low risk of severe sepsis and/or septic shock. PCT >2.00 = High risk of severe sepsis and/or septic shock. [facility] Troponin I.cardiac [Mass/Vol ]on 08-27-2022 Interpretation and review of laboratory results Normal [facility] Patients with high levels of Biotin oral intake (ie >5 mg/day) may have falsely decreased Troponin levels. [facility] Vital signson 08-27-2022 Heart rate 106 /min bpm [facility] XR Chest 2 Viewson 3 No acute cardiopulmonary process. Report Dictated on Electronically Signed By: Lonnie Martinez Electronically Signed Date/Time: 08/27/2022 12:13 PM T [facility] Patient Name: NATALI ARANA : 1990 Exam Date/Time: 08/27/2022 12:18 Procedure: XR CHEST 2 VIEWS Ordering Provider: SANDERS DANIEL Reason For Exam: CHEST PAIN CHEST: CLINICAL INDICATION: CHEST PAIN TECHNIQUE: PA and Lateral COMPARISON: None FINDINGS: No focal consolidation or pulmonary edema. No pleural effusions or pneumothorax. The cardiac and mediastinal silhouettes are normal. The osseous structures are unremarkable. [facility] Lonnie Martinez MD - 08/27/2022 Patient Name: NATALI ARANA : 1990 Exam Date/Time: 08/27/2022 12:18 Procedure: XR CHEST 2 VIEWS Ordering Provider: SANDERS DANIEL Reason For Exam: CHEST PAIN CHEST: CLINICAL INDICATION: CHEST PAIN TECHNIQUE: PA and Lateral COMPARISON: None FINDINGS: No focal consolidation or pulmonary edema. No pleural effusions or pneumothorax. The cardiac and mediastinal silhouettes are normal. The osseous structures are unremarkable. IMPRESSION: No acute cardiopulmonary process. Report Dictated on Electronically Signed By: Lonnie Martinez Electronically Signed Date/Time: 08/27/2022 12:13 PM EDT [facility] Radiology Study observation (narrative) [facility] XR Chest 2 ViewsOrdered By: Lonnie Martinez on 08-27-2022 [facility] Work Phone: CBC W Auto Differential pane l (Bld)on 06-25-2022 Basophils (Bld) [#/Vol] 0.0 10*3/uL 0.0 - 0.2 10*3/uL [facility] Basophils/100 WBC (Bld) 0.4 % 0.0 - 2.0 % [facility] Eosinophils (Bld) [#/Vol] 0.3 10*3/uL 0.0 - 0.5 10*3/uL [facility] Eosinophils/100 WBC (Bld) 3.0 % 1.0 - 6.0 % [facility] Erythrocyte distribution width (RBC) [Ratio] 14.0 % 11.5 - 14.5 % [facility] Hematocrit (Bld) [Volume fraction] 41.5 % 35.0 - 47.0 % [facility] Hemoglobin (Bld) [Mass/Vol] 13.8 g/dL 11.7 - 16.0 g/dL [facility] Interpretation and review of laboratory results Normal [facility] Lymphocytes (Bld) [#/Vol] 2.6 10*3/uL 1.0 - 4.3 10*3/uL [facility] Lymphocytes/100 WBC (Bld) 28.6 % 20.0 - 40.0 % [facility] MCH (RBC) [Entitic mass] 28.7 pg 26.0 - 34.0 pg [facility] MCHC (RBC) [Mass/Vol] 33.1 % 32.0 - 36.0 % [facility] MCV (RBC) [Entitic vol] 86.7 fL 80.0 - 98.0 fL [facility] Monocytes (Bld) [#/Vol] 0.7 10*3/uL 0.0 - 0.8 10*3/uL [facility] Monocytes/100 WBC (Bld) 7.5 % 2.0 - 10.0 % [facility] Neutrophils (Bld) [#/Vol] 5.4 10*3/uL 1.8 - 7.0 10*3/uL [facility] Neutrophils/100 WBC (Bld) 60.5 % 40.0 - 80.0 % [facility] Nucleated RBC/100 WBC (Bld) [Ratio] 0.1 % [facility] Platelet mean volume (Bld) [Entitic vol] 7.8 fL 7.4 - 12.4 fL [facility] Platelets (Bld) [#/Vol] 339 10*3/uL 140 - 440 10*3/uL [facility] RBC (Bld) [#/Vol] 4.79 10*6/uL 3.8 - 5.20 10*6/uL [facility] WBC (Bld) [#/Vol] 9.0 10*3/uL 3.6 - 10.7 10*3/uL [facility] Comprehensive metabolic 1998 panelon 06-25-2022 Albumin [Mass/Vol] 4.5 g/dL 3.5 - 5.0 g/dL [facility] ALP [Catalytic activity/Vol] 60 U/L 38 - 126 U/L [facility] ALT [Catalytic activity/Vol] 49 U/L High 0 - 34 U/L [facility] Anion gap [Moles/Vol] 5 mmol/L 3 - 13 mmol/L [facility] AST [Catalytic activity/Vol] 35 U/L 15 - 46 U/L [facility] Bilirubin [Mass/Vol] 0.3 mg/dL 0.2 - 1 .3 mg/dL [facility] Calcium [Mass/Vol] 9.5 mg/dL 8.4 - 10. 4 mg/dL [facility] Chloride [Moles/Vol] 103 mmol/L 98 - 10 7 mmol/L [facility] CO2 [Moles/Vol] 29 mmol/L 22 - 30 mmol/L [facility] Creatinine [Mass/Vol] 0.83 mg/dL 0.52 - 1.04 mg/dL [facility] GFR/1.73 sq M.predicted MDRD (S/P/Bld) [Vol rate/Area] - PINF [facility] Comment on above: Calculation based on the Chronic Kidney Disease Epidemiology Collaboration (CKD-EPI) equation refit without adjustment for race Glucose [Mass/Vol] 90 mg/dL 70 - 100 mg/dL [facility] Interpretation and review of laboratory results Abnormal [facility] Potassium [Moles/Vol] 4.0 mmol/L 3.5 - 5.1 mmol/L [facility] Protein [Mass/Vol] 7.7 g/dL 6.3 - 8.2 g/dL [facility] Sodium [Moles/Vol] 137 mmol/L 135 - 145 mmol/L [facility] Urea nitrogen [Mass/Vol] 15 mg/dL 7 - 17 mg/dL [facility] - Chemistry and C hemistry - challengeOrdered By: Rachel Jones on 06-25-2022 Beta HCG ( test) Ql Negative Negative [facility] Comment on above: Please note: Very di lute urine specimens, as indicated by a low specific gravity, may not contain vendor representatives levels of hCG. If is still suspected, a first morning urine specimen should be collected 48 hours later and tested. Beta HCG ( test) Ql (U) is the most common reason for HCG in urine, although choriocarcinoma, hydatidiform mole, and certain nontrophoblastic malignancies also result in detectable urinary HCG levels. Sensitivity = 20mIU/mL. [facility] - Chemistry and C hemistry - challengeon 06-25-2022 TSH Qn 0.118 m[IU]/L [facility] No Panel InformationOrdered By: Rachel Jones on 06-25-2022 [facility] No Panel Informationon 06-25 P Hensel 27 degrees [facility] FL Interval 151 ms [facility] QRS Hensel 40 degrees [facility] QRSD Interval 91 ms [facility] QT Interval 358 ms [facility] QTC Interval 458 ms [facility] T Wave Hensel 16 degrees [facility] Sinus rhythm Right atrial enlargement Compared to ECG 03/06/2022 01:42:04 No significant changes Electronically Signed On 06-25-2022 10:39:43 EST by Nesha Alfaro CV Nesha Whitney MD - 06/25/2022 IMPRESSION: Sinus rhythm Right atrial enlargement Compared to ECG 03/06/2022 01:42:04 No significant changes Electronically Signed On 06-25-2022 10:39:43 EST by Nesha Alfaro [facility] TSH Qnon 06-25-2022 Interpretation and review of laboratory results Abnormal [facility] Urinalysis complete panel (U )on 06-25-2022 Bacteria LM.HPF (Urine sed) [#/Area] Negative Negative /HPF [facility] Bilirubin Ql (U) Negative Negative mg/dL [facility] Clarity (U) Turbid Abnormal Clear [facility] Color (U) Light [place] Abnormal Lt. Yellow [facility] Epithelial cells.squamous LM.HPF (Urine sed) [#/Area] 6-10 Abnormal [facility] h Glucose Ql (U) Normal Normal (<70) mg/dL [facility] Hemoglobin Ql (U) >1.0 Abnormal Negative mg/dL [facility] Interpretation and review of laboratory results Abnormal [facility] Ketones (U) [Mass/Vol] Negative Negat cal mg/dL [facility] Leukocyte esterase Test strip Ql (U) 250 Abnormal Negative María/uL [facility] Mucus LM.HPF (Urine sed) [#/Area] Few Negative /LPF [facility] Nitrite Ql (U) Negative Negative [facility] th pH (U) 6.5 [pH] 5.0 - 8.0 pH [facility] Protein (U) [Mass/Vol] 30 mg/dL Abnormal Negative [facility] RBC LM.HPF (Urine sed) [#/Area] /[HPF] Abnormal [facility] Specific gravity (U) [Rel density] 1.015 1.005 - 1.030 [facility] Urobilinogen (U) [Mass/Vol] Normal Normal (0-1) mg/dL [facility] WBC LM.HPF (Urine sed) [#/Area] 51-100 Abnormal [facility] Vital signson 06-25-2022 Heart rate 98 /min bpm [facility] Basic Metabolic Panelon 07-28 Calcium [Mass/Vol] 10.1 mg/dL Normal 8.4-10.4 [facility] Comment on above: Performed By: #### H EMDF, BMP3, BNP3, TROPN, QWAL2 #### [facility] [address] [place] [address] Glucose [Mass/Vol] 142 mg/dL High 70-100 [facility] Comment on above: Performed By: #### H EMDF, BMP3, BNP3, TROPN, QWAL2 #### [facility] [address] [place] [address] Anion gap [Moles/Vol] 12 mmol/L Normal 3-13 [facility] Comment on above: Performed By: #### H EMDF, BMP3, BNP3, TROPN, QWAL2 #### [facility] [address] [place] [address] CO2 [Moles/Vol] 24 mmol/L Normal 22-30 [facility] Comment on above: Performed By: #### H EMDF, BMP3, BNP3, TROPN, QWAL2 #### [facility] [address] [place] [address] Creatinine [Mass/Vol] 1.09 mg/dL Normal 0.52-1.25 [facility] Comment on above: Performed By: #### H EMDF, BMP3, BNP3, TROPN, QWAL2 #### [facility] [address] [place] [address] GFR/1.73 sq M.predicted among blacks MDRD (S/P/Bld) [Vol rate/Area] 78.9 mL/min/{1.73_m2} Normal >60 [facility] Comment on above: Performed By: #### H EMDF, BMP3, BNP3, TROPN, QWAL2 #### [facility] [address] [place] [address] GFR/1.73 sq M.predicted among non-blacks MDRD (S/P/Bld) [Vol rate/Area] 68.1 mL/min/{1.73_m2} Normal >60 [facility] Comment on above: Result Comment: KDIG O guidelines provide the following GFR categories: Stage GFR(ml/min/1.73 m2) Terms G1 >=90 Normal or high G2 60-89 Mildly decreased* G3a 45-59 Mildly to moderately decreased G3b 30-44 Moderately to severely decreased G4 15-29 Severely decreased G5 <15 Kidney failure *Relative to young adult level. In the absence of evidence of kidney damage, neither GFR category G1 nor G2 fulfill the criteria for CKD. The CKD-EPI equation is validated in individuals 18 years of age and older. Currently the best equation for estimating glomerular filtration rate (GFR) from serum creatinine in children is the Bedside Chau equation. It is less accurate in patients with extremes of muscle mass, restriction of dietary protein, ingestion of creatine, extra-renal metabolism of creatinine, or treatment with medications that affect renal tubular creatinine secretion. Performed By: #### H EMDF, BMP3, BNP3, TROPN, QWAL2 #### [facility] [address] [place] [address] Urea nitrogen [Mass/Vol] 15 mg/dL Normal 9-20 [facility] Comment on above: Performed By: #### H EMDF, BMP3, BNP3, TROPN, QWAL2 #### [facility] [address] [place] [address] Chloride [Moles/Vol] 95 mmol/L Low 98-107 [facility] Comment on above: Performed By: #### H EMDF, BMP3, BNP3, TROPN, QWAL2 #### [facility] [address] [place] [address] Potassium [Moles/Vol] 4.0 mmol/L Normal 3.5-5.1 [facility] Comment on above: Performed By: #### H EMDF, BMP3, BNP3, TROPN, QWAL2 #### [facility] [address] [place] [address] Sodium [Moles/Vol] 131 mmol/L Low 135-145 [facility] Comment on above: Performed By: #### H EMDF, BMP3, BNP3, TROPN, QWAL2 #### [facility] [address] [place] [address] Anion gap [Moles/Vol] 12 mmol/L 3 - 13 mmol/L [facility] Calcium [Mass/Vol] 10.1 mg/dL 8.4 - 10. 4 mg/dL [facility] Chloride [Moles/Vol] 95 mmol/L Low 98 - 10 7 mmol/L [facility] CO2 [Moles/Vol] 24 mmol/L 22 - 30 mmol/L [facility] Creatinine [Mass/Vol] 1.09 mg/dL 0.52 - 1.25 mg/dL [facility] EGFR IF NonAfrican Salvadorean 68.1 mL/min >60 [facility] Comment on above: KDIGO guidelines pro vide the following GFR categories: Stage GFR(ml/min/1.73 m2) Terms G1 >=90 Normal or high G2 60-89 Mildly decreased* G3a 45-59 Mildly to moderately decreased G3b 30-44 Moderately to severely decreased G4 15-29 Severely decreased G5 <15 Kidney failure *Relative to young adult level. In the absence of evidence of kidney damage, neither GFR category G1 nor G2 fulfill the criteria for CKD. The CKD-EPI equation is validated in individuals 18 years of age and older. Currently the best equation for estimating glomerular filtration rate (GFR) from serum creatinine in children is the Bedside Chau equation. It is less accurate in patients with extremes of muscle mass, restriction of dietary protein, ingestion of creatine, extra-renal metabolism of creatinine, or treatment with medications that affect renal tubular creatinine secretion. GFR/1.73 sq M.predicted among blacks MDRD (S/P/Bld) [Vol rate/Area] 78.9 mL/min/{1.73_m2} >60 [facility] Glucose [Mass/Vol] 142 mg/dL High 70 - 100 mg/dL [facility] Interpretation and review of laboratory results Abnormal [facility] Potassium [Moles/Vol] 4.0 mmol/L 3.5 - 5.1 mmol/L [facility] Sodium [Moles/Vol] 131 mmol/L Low 135 - 145 mmol/L [facility] Urea nitrogen (BldV) [Mass/Vol] 15 mg/dL 9 - 20 mg/dL [facility] Test Performed by [facility], [address], [place], [place] [address] [facility] Brain Natriuretic Peptideon 08-06-2021 Natriuretic peptide B (Bld) [Mass/Vol] 31 pg/mL 0 - 125 pg/mL [facility] Test Performed by [facility], [address], [place], [place] [address] [facility] CBC with Auto Differentialon 08-06-2021 Absolute Baso # 0.0 10*3/uL 0.0 - 0.2 10*3/uL [facility] Absolute Neut # 18.2 10*3/uL High 1.8 - 7.0 10*3/uL [facility] Basophils/100 WBC (Bld) 0.2 % 0.0 - 2.0 % [facility] Eosinophils (Bld) [#/Vol] 0.2 10*3/uL 0.0 - 0.5 10*3/uL [facility] Eosinophils/100 WBC (Bld) 0.8 % Low 1.0 - 6.0 % [facility] Granulocytes/100 WBC (Bld) 87.3 % High 40.0 - 80.0 % [facility] Hematocrit (Bld) [Volume fraction] 38.6 % 35.0 - 47.0 % [facility] Hemoglobin.gastrointest inal spec 1 Ql (Stl) 13.1 g/dL 11.7 - 16.0 g/dL [facility] Interpretation and review of laboratory results Abnormal [facility] Lymphocytes (Bld) [#/Vol] 1.5 10*3/uL 1.0 - 4.3 10*3/uL [facility] Lymphocytes/100 WBC (Bld) 7.1 % Low 20.0 - 40.0 % [facility] MCH (RBC) [Entitic mass] 29.8 pg 26.0 - 34.0 pg [facility] MCHC (RBC) [Mass/Vol] 34.0 % 32.0 - 36.0 % [facility] MCV (RBC) [Entitic vol] 87.8 fL 79.0 - 98.0 fL [facility] Monocytes (Bld) [#/Vol] 1.0 10*3/uL High 0.0 - 0.8 10*3/uL [facility] Monocytes/100 WBC (Bld) 4.6 % 2.0 - 10.0 % [facility] Platelet distribution width (Bld) [Ratio] 13.5 % 11.5 - 14.5 % [facility] Platelet mean volume (Bld) [Entitic vol] 7.8 fL 7.4 - 10.4 fL [facility] Platelets (Bld) [#/Vol] 371 10*3/uL 140 - 440 10*3/uL [facility] RBC (Bld) [#/Vol] 4.40 10*6/uL 3.80 - 5.2 0 10*6/uL [facility] WBC (Bld) [#/Vol] 20.8 10*3/uL High 3.6 - 10.7 10*3/uL [facility] Test Performed by [facility], [address], [place], [place] [id number] [place] [address] [facility] Portableon 08-07-19 22 CR Chest Portable Patient Name: NATALI ARANA Diagnostic Radiology ACCESSION EXAM DATE/TIME PROCEDURE ORDERING PROVIDER [id number] 08/05/2021 23:59 EDT CR Chest Portable [id number] LANDRY NAVARRO CPT code 31061 Reason For Exam (CR Chest Portable) pain Report PORTABLE CHEST: INDICATION: Chest pain COMPARISON: No previous studies are available for comparison. Obtained at 2357 hours. A single portable AP radiograph of the chest was obtained. The heart is normal in size. The mediastinal silhouette is normal. The lungs are clear. There are no effusions or infiltrates. There is no pleural thickening. The osseous structures are unremarkable. IMPRESSION: No acute process. Report Dictated on Final Dictating Physician: DO BAHENA ALFRED Signed Date and Time: 08/06/2021 0:41 am Signed by: DO BAHENA ALFRED Transcribed Date and Time: 08/06/2021 0:42 Normal [facility] CTA Chest W WO (PE study)on 08-06-2021 Patient Name: NATALI ARANA Computed Tomography ACCESSION EXAM DATE/TIME PROCEDURE ORDERING PROVIDER [id number] 08/06/2021 00:38 EDT CTA Chest w/ + w/o [id number] -LANDRY SANTIAGO Contrast CPT code 74202 Q9967 Reason For Exam (CTA Chest w/ + w/o Contrast) pain Report CT ANGIOGRAM OF THE CHEST(PULMONARY EMBOLISM PROTOCOL): INDICATION: Chest pain. COMPARISON: No previous studies are available for comparison. CTA of the chest was performed following the IV administration of 75 cc of Isovue-370. The contrast bolus was optimized for maximal opacification of the pulmonary vascular tree. Fine section CT images were obtained from the apices through the lung bases. The study was reviewed in the axial, sagittal and coronal planes. In addition a 3-D volume rendering was processed concurrently by the radiologist and reviewed on a separate workstation. The thyroid is normal in appearance. The thoracic soft tissues are grossly normal. There is no axillary lymphadenopathy. The contrast bolus injection is suboptimal. There are no filling defects within the central pulmonary vascular tree. The distal branches are not adequately opacified to accurately evaluate. Evaluation of the pulmonary parenchyma demonstrates patchy left upper lobe infiltrates as well as smaller pneumonic infiltrates involving the left lower lobe. Several areas of groundglass opacification are seen involving the left apex. There is focal consolidation or scarring involving the anterior medial sulcus of the right middle lobe. There are no effusions. Evaluation of the mediastinum demonstrates no evidence of mediastinal mass or lymphadenopathy. A hiatal hernia is present. The heart is normal in size. A limited review of the upper abdomen demonstrates no gross abnormality. IMPRESSION: Suboptimal contrast opacification of the pulmonary vascular tree. No obvious central pulmonary embolus is identified. The distal pulmonary arterial branches are not adequately evaluated. There are patchy left-sided pulmonary infiltrates consistent with multifocal pneumonia. Computed Tomography Report Report Dictated on --- Final --- Dictating Physician: DO BAHENA ALFRED Signed Date and Time: 08/06/2021 1:29 am Signed by: DO BAHENA ALFRED Transcribed Date and Time: 08/06/2021 1:30 Robert Espinoza DO - 08/06/2021 Patient Name: NATALI ARANA Computed Tomography ACCESSION EXAM DATE/TIME PROCEDURE ORDERING PROVIDER [id number] 08/06/2021 00:38 EDT CTA Chest w/ + w/o [id number] LANDRY NAVARRO Contrast CPT code 38195 Q9967 Reason For Exam (CTA Chest w/ + w/o Contrast) pain Report CT ANGIOGRAM OF THE CHEST(PULMONARY EMBOLISM PROTOCOL): INDICATION: Chest pain. COMPARISON: No previous studies are available for comparison. CTA of the chest was performed following the IV administration of 75 cc of Isovue-370. The contrast bolus was optimized for maximal opacification of the pulmonary vascular tree. Fine section CT images were obtained from the apices through the lung bases. The study was reviewed in the axial, sagittal and coronal planes. In addition a 3-D volume rendering was processed concurrently by the radiologist and reviewed on a separate workstation. The thyroid is normal in appearance. The thoracic soft tissues are grossly normal. There is no axillary lymphadenopathy. The contrast bolus injection is suboptimal. There are no filling defects within the central pulmonary vascular tree. The distal branches are not adequately opacified to accurately evaluate. Evaluation of the pulmonary parenchyma demonstrates patchy left upper lobe infiltrates as well as smaller pneumonic infiltrates involving the left lower lobe. Several areas of groundglass opacification are seen involving the left apex. There is focal consolidation or scarring involving the anterior medial sulcus of the right middle lobe. There are no effusions. Evaluation of the mediastinum demonstrates no evidence of mediastinal mass or lymphadenopathy. A hiatal hernia is present. The heart is normal in size. A limited review of the upper abdomen demonstrates no gross abnormality. IMPRESSION: Suboptimal contrast opacification of the pulmonary vascular tree. No obvious central pulmonary embolus is identified. The distal pulmonary arterial branches are not adequately evaluated. There are patchy left-sided pulmonary infiltrates consistent with multifocal pneumonia. Computed Tomography Report Report Dictated on --- Final --- Dictating Physician: DO BAHENA ALFRED Signed Date and Time: 08/06/2021 1:29 am Signed by: DO BAHENA ALFRED Transcribed Date and Time: 08/06/2021 1:30 [facility] Work Phone: CTA Chest W WO (PE study)Ord ered By: Robert Bahena on 08-06-2021 [facility] Work Phone: ED Provider Noteon 2 ED Provider Note Emergency Department Encounter [facility] ED Patient: Natali Arana : 1990 Date of Evaluation: 08/05/2021 ED Provider: Landry Santiago MD Chief Complaint Chief Complaint Patient presents with ? Back Pain left lung pain [place] I wore appropriate PPE for the entirety of this encounter. Does this patient come from an ECF, SNF, Rehab, Detention or other Congregate setting: No (If yes to above patient needs a Covid-19 test) Nursing notes reviewed with [facility] social hx and PSH. Natali Arana is a 30 y.o. female who presents to the emergency department complaining of chest pain or shortness of air. Patient apparently woke up with severe chest pain and shortness of breath. States she cannot take a deep breath and every time she tries she has severe chest pain in the left side of her patient states that she has had cough today with lightheadedness and dizziness and shortness of breath associated with her chest pain. No other recent illnesses. Abdominal pain. No nausea vomiting fevers or chills. No diarrhea. No history of blood clots or swelling in her legs. ROS: 14 systems reviewed and otherwise acutely negative except as in the KAKTOVIK. Past History Past Medical History: Diagnosis Date ? Thyroid disease Past Surgical History: Procedure Laterality Date ? ABDOMEN SURGERY Social History Socioeconomic History ? Marital status: Spouse name: Not on file ? Number of children: Not on file ? Years of education: Not on file ? Highest education level: Not on file Occupational History ? Not on file Tobacco Use ? Smoking status: Current Every Day Smoker Packs/day: 0.50 Types: Cigarettes ? Smokeless tobacco: Never Used Substance and Sexual Activity ? Alcohol use: Not Currently ? Drug use: Never ? Sexual activity: Not on file Other Topics Concern ? Not on file Social History Narrative ? Not on file Social Determinants of Health Financial Resource Strain: ? Difficulty of Paying Living Expenses: Not on file Food Insecurity: ? Worried About Running Out of Food in the Last Year: Not on file ? Ran Out of Food in the Last Year: Not on file Transportation Needs: ? Lack of Transportation (Medical): Not on file ? Lack of Transportation (Non-Medical): Not on file Physical Activity: ? Days of Exercise per Week: Not on file ? Minutes of Exercise per Session: Not on file Stress: ? Feeling of Stress : Not on file Social Connections: ? Frequency of Communication with Friends and Family: Not on file ? Frequency of Social Gatherings with Friends and Family: Not on file ? Attends [employer] Services: Not on file ? Active Member of Clubs or Organizations: Not on file ? Attends Club or Organization Meetings: Not on file ? Marital Status: Not on file Intimate Partner Violence: ? Fear of Current or Ex-Partner: Not on file ? Emotionally Abused: Not on file ? Physically Abused: Not on file ? Sexually Abused: Not on file Housing Stability: ? Unable to Pay for Housing in the Last Year: Not on file ? Number of Places Lived in the Last Year: Not on file ? Unstable Housing in the Last Year: Not on file Medications/Allergies Previous Medications BENZOCAINE-MENTHOL (CEPACOL EXTRA STRENGTH) 15-2.6 MG LOZG LOZENGE Take 1 lozenge by mouth every 2 hours as needed for Sore Throat IBUPROFEN (ADVIL;MOTRIN) 600 MG TABLET Take 1 tablet by mouth every 6 hours as needed for Pain or Fever LEVOTHYROXINE (SYNTHROID) 175 MCG TABLET Take 1 tablet by mouth daily LEVOTHYROXINE (SYNTHROID) 175 MCG TABLET Take 1 tablet by mouth daily METHYLPHENIDATE (CONCERTA) 54 MG EXTENDED RELEASE TABLET Take 54 mg by mouth every morning. No Known Allergies Physical Exam ED Triage Vitals [08/05/21 2337] BP Temp Temp Source Pulse Resp SpO2 Height Weight (!) 181/137 99.8 ?F (37.7 ?C) Oral 120 26 100 % 5' 6 (1.676 m) -- GENERAL: The patient appears nourished and normally developed. Vital signs as documented. Tachypneic and uncomfortable in appearance. Unable to take a deep breath with a respiratory catch with her deep respirations. EYES: Head exam is unremarkable. No scleral icterus or orbital trauma noted. HEENT: Nares patent without copious rhinorrhea. LUNGS: Lungs are clear to auscultation, without any respiratory distress. CARDIAC: Rhythm is regular. No dysrythmias or murmurs. ABDOMEN: Nontender with no obvious masses, and no peritoneal signs. EXTREMITIES: No obvious deformities. SKIN: Good color, with no significant rashes. No pallor. NEURO: No obvious neurological deficits. Diagnostics Labs: Results for orders placed or performed during the hospital encounter of 08/05/21 Basic Metabolic Panel Result Value Ref Range Sodium 131 (L) 135 - 145 mmol/L Potassium 4.0 3.5 - 5.1 mmol/L Chloride 95 (L) 98 - 107 mmol/L CO2 24 22 - 30 mmol/L Anion Gap 12 3 - 13 mmol/L Glucose 142 (H) 70 - 100 mg/dL BUN 15 9 - 20 mg/dL CREATININE 1.09 0.52 - (more content not included)... 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: ASHLEY BARB: 1990 Requested By: AP LUKE Order Number: [id number] Reading MD: Ap Luke Measurements Intervals Hensel Rate: 102 P: 44 FL: 156 QRS: 63 QRSD: 106 T: 14 QT: 364 QTc: 475 Interpretive Statements SINUS TACHYCARDIA FL and QRS unremarkable QTc unremarkable ST segments unremarkable No significant change from prior EKG Electronically Signed On 08-06-2021 17:53:05 EDT by Ap Luke [facility] Ap Luke MD - 08/06/2021 [facility] Test Date: 2021-08-06 Pat Name: NATALI ARANA Department: Room: 02 Gender: F Acetylene Torch Operator: ASHLEY BARB: 1990 Requested By: AP LUKE Order Number: [id number] Reading MD: Ap Luke Measurements Intervals Hensel Rate: 102 P: 44 FL: 156 QRS: 63 QRSD: 106 T: 14 QT: 364 QTc: 475 Interpretive Statements SINUS TACHYCARDIA FL and QRS unremarkable QTc unremarkable ST segments unremarkable No significant change from prior EKG Electronically Signed On 08-06-2021 17:53:05 EDT by Ap Luke [facility] Work Phone: [facility] Work Phone: HCG Qualitative, Serumon hCG Qual Negative [facility] Comment on above: Reference Range: NEG ATIVE Effective 07/10/2019, the reference interval for the qualitative test has been updated. This test detects hCG at concentrations of 10 mIU/L or greater in serum. Test Performed by [facility], [address] [place] [address] [facility] w/ Autodiffon 08-06 Abs Baso Cnt 0.0 10*3/uL Normal 0.0-0.2 [facility] Comment on above: Performed By: #### H EMDF, BMP3, BNP3, TROPN, QWAL2 #### [place] [address] [place] [address] Abs Neutrophile Cnt 18.2 10*3/uL High 1.8-7.0 [facility] Comment on above: Performed By: #### H EMDF, BMP3, BNP3, TROPN, QWAL2 #### [place] [address] [place] [address] Basophils/100 WBC (Bld) 0.2 % Normal 0.0-2.0 [facility] Comment on above: Performed By: #### H EMDF, BMP3, BNP3, TROPN, QWAL2 #### [place] [address] [place] [address] Eosinophils (Bld) [#/Vol] 0.2 10*3/uL Normal 0.0-0.5 [facility] Comment on above: Performed By: #### H EMDF, BMP3, BNP3, TROPN, QWAL2 #### [place] [address] [place] [address] Eosinophils/100 WBC (Bld) 0.8 % Low 1.0-6.0 [facility] Comment on above: Performed By: #### H EMDF, BMP3, BNP3, TROPN, QWAL2 #### [facility] [address] [place] [address] Erythrocyte distribution width (RBC) [Ratio] 13.5 % Normal 11.5-14.5 [facility] Comment on above: Performed By: #### H EMDF, BMP3, BNP3, TROPN, QWAL2 #### [facility] [address] [place] [address] Granulocytes/100 WBC (Bld) 87.3 % High 40.0-80.0 [facility] Comment on above: Performed By: #### H EMDF, BMP3, BNP3, TROPN, QWAL2 #### [facility] [address] [place] [address] Hematocrit (Bld) [Volume fraction] 38.6 % Normal 35.0-47.0 [facility] Comment on above: Performed By: #### H EMDF, BMP3, BNP3, TROPN, QWAL2 #### [facility] [address] [place] [address] Hemoglobin (Bld) [Mass/Vol] 13.1 g/dL Normal 11.7-16.0 [facility] Comment on above: Performed By: #### H EMDF, BMP3, BNP3, TROPN, QWAL2 #### [place] [address] [place] [address] Lymphocytes (Bld) [#/Vol] 1.5 10*3/uL Normal 1.0-4.3 [facility] Comment on above: Performed By: #### H EMDF, BMP3, BNP3, TROPN, QWAL2 #### [facility] [address] [place] [address] Lymphocytes/100 WBC (Bld) 7.1 % Low 20.0-40.0 [facility] Comment on above: Performed By: #### H EMDF, BMP3, BNP3, TROPN, QWAL2 #### [facility] [address] [place] [address] MCH (RBC) [Entitic mass] 29.8 pg Normal 26.0-34.0 [facility] Comment on above: Performed By: #### H EMDF, BMP3, BNP3, TROPN, QWAL2 #### [facility] [address] [place] [address] MCHC 34.0 % Normal 32.0-36.0 [facility] Comment on above: Performed By: #### H EMDF, BMP3, BNP3, TROPN, QWAL2 #### [facility] [address] [place] [address] MCV (RBC) [Entitic vol] 87.8 fL Normal 79.0-98.0 [facility] Comment on above: Performed By: #### H EMDF, BMP3, BNP3, TROPN, QWAL2 #### [facility] [address] [place] [address] Monocytes (Bld) [#/Vol] 1.0 10*3/uL High 0.0-0.8 [facility] Comment on above: Performed By: #### H EMDF, BMP3, BNP3, TROPN, QWAL2 #### [facility] [address] [place] [address] Monocytes/100 WBC (Bld) 4.6 % Normal 2.0-10.0 [facility] Comment on above: Performed By: #### H EMDF, BMP3, BNP3, TROPN, QWAL2 #### [facility] [address] [place] [address] Platelet mean volume (Bld) [Entitic vol] 7.8 fL Normal 7.4-10.4 [facility] Comment on above: Performed By: #### H EMDF, BMP3, BNP3, TROPN, QWAL2 #### [facility] [address] [place] [address] Platelets (Bld) [#/Vol] 371 10*3/uL Normal 140-440 [facility] Comment on above: Performed By: #### H EMDF, BMP3, BNP3, TROPN, QWAL2 #### [facility] [address] [place] [address] RBC (Bld) [#/Vol] 4.40 10*6/uL Normal 3.80-5.20 [facility] Comment on above: Performed By: #### H EMDF, BMP3, BNP3, TROPN, QWAL2 #### [facility] [address] [place] [address] WBC (Bld) [#/Vol] 20.8 10*3/uL High 3.6-10.7 [facility] Comment on above: Performed By: #### H EMDF, BMP3, BNP3, TROPN, QWAL2 #### [facility] [address] [place] [address] NT pro BNPon 08-06-2021 Natriuretic peptide B (Bld) [Mass/Vol] 31 pg/mL Normal 0-125 [facility] Comment on above: Performed By: #### H EMDF, BMP3, BNP3, TROPN, QWAL2 #### [facility] [address] [place] [address] No Panel Informationon 08-06 Radiology Study observation (narrative) [facility] Work Phone: POCT Venouson 08-06-2021 Base Excess, Sky -1.4 mmol/L -3.0 - 3.0 mmol/L [facility] FIO2 Venous 21 [facility] Comment on above: Performed by CLIA ID : [id number] [place], [place] HCO3 (Bld) [Moles/Vol] 22.5 mmol/L Low 23.0 - 27.0 mmol/L [facility] Interpretation and review of laboratory results Abnormal [facility] Oxygen saturation in Blood 60.2 % 60.0 - 80.0 % [facility] pCO2, Sky 34.2 mm[Hg] Low 40.0 - 55.0 mm[Hg] [facility] pH, Sky 7.426 [facility] pO2, Sky 30.2 mm[Hg] 30.0 - 50.0 mm[Hg] [facility] TC02 (Calc), Sky 23.5 mmol/L Low 24.0 - 28.0 mmol/L [facility] Test Performed by [facility], [address] [place], [place] [address] [facility] Troponin Ion 08-06-2021 Troponin I.cardiac [Mass/Vol] ng/mL Normal 0.000-0.034 [facility] Comment on above: Result Comment: . Performed By: #### H EMDF, BMP3, BNP3, TROPN, QWAL2 #### [facility] [address] [place] [address] Troponin x1on 08-06-2021 Troponin I.cardiac [Mass/Vol] ng/mL 0.000 - 0.034 ng/mL [facility] Comment on above: . Test Performed by [facility], [address] [place], [place] [address] [facility] Venous Blood Gas Respiratory on 08-06-2021 Base Excess -1.4 mmol/L Normal -3.0-3.0 [facility] Comment on above: Performed By: #### V BGE #### [facility] [address] [place] [address] CO2 [Moles/Vol] 23.5 mmol/L Low 24.0-28.[address] [facility] Comment on above: Performed By: #### V BGE #### [facility] [address] [place] [address] FIO2 21 Normal [facility] Comment on above: Result Comment: Perf ormed by DARIEN ID: [id number] [place], [place] Performed By: #### V BGE #### [facility] [address] [place] [address] HCO3 (Bld) [Moles/Vol] 22.5 mmol/L Low 23.0-27.0 [facility] Comment on above: Performed By: #### V BGE #### [facility] [address] [place] [address] Oxygen (Bld) [Partial pressure] 30.2 mm[Hg] Normal 30.0-50.0 [facility] Comment on above: Performed By: #### V BGE #### [facility] [address] [place] [address] Oxygen saturation in Blood 60.2 % Normal 60.0-80.0 [facility] Comment on above: Performed By: #### V BGE #### [facility] [address] [place] [address] pCO2 34.2 mm[Hg] Low 40.0-55.0 [facility] Comment on above: Performed By: #### V BGE #### [facility] [address] [place] [address] pH 7.426 Normal 7.330-7.430 [facility] Comment on above: Performed By: #### V BGE #### [facility] [address] [place] [address] XR CHEST PORTABLEon 08-07-19 Patient Name: NATALI ARANA Diagnostic Radiology ACCESSION EXAM DATE/TIME PROCEDURE ORDERING PROVIDER [id number] 08/05/2021 23:59 EDT CR Chest Portable [id number] -CRESAP, LANDRY CPT code 82698 Reason For Exam (CR Chest Portable) pain Report PORTABLE CHEST: INDICATION: Chest pain COMPARISON: No previous studies are available for comparison. Obtained at 2357 hours. A single portable AP radiograph of the chest was obtained. The heart is normal in size. The mediastinal silhouette is normal. The lungs are clear. There are no effusions or infiltrates. There is no pleural thickening. The osseous structures are unremarkable. IMPRESSION: No acute process. Report Dictated on --- Final --- Dictating Physician: DO BAHENA ALFRED Signed Date and Time: 08/06/2021 0:41 am Signed by: DO BAHENA ALFRED Transcribed Date and Time: 08/06/2021 0:42 [facility] Robert Bahena DO - 08/06/2021 Patient Name: NATALI ARANA Diagnostic Radiology ACCESSION EXAM DATE/TIME PROCEDURE ORDERING PROVIDER [id number] 08/05/2021 23:59 EDT CR Chest Portable [id number] -CRESAP, LANDRY CPT code 38516 Reason For Exam (CR Chest Portable) pain Report PORTABLE CHEST: INDICATION: Chest pain COMPARISON: No previous studies are available for comparison. Obtained at 2357 hours. A single portable AP radiograph of the chest was obtained. The heart is normal in size. The mediastinal silhouette is normal. The lungs are clear. There are no effusions or infiltrates. There is no pleural thickening. The osseous structures are unremarkable. IMPRESSION: No acute process. Report Dictated on --- Final --- Dictating Physician: DO BAHENA ALFRED Signed Date and Time: 08/06/2021 0:41 am Signed by: DO ABHENA ALFRED Transcribed Date and Time: 08/06/2021 0:42 [facility] Work Phone: [employer] Work Phone: hCG Qual [place]regon 08-06-2021 hCG Qual Preg Negative Normal [facility] Comment on above: Result Comment: Refe rence Range: NEGATIVE Effective 07/10/2019, the reference interval for the qualitative test has been updated. This test detects hCG at concentrations of 10 mIU/L or greater in serum. Performed By: #### H EMDF, BMP3, BNP3, TROPN, QWAL2 #### [facility] [address] [place] [address] CTA Chest w/ + w/o Contrasto n 08-05-2021 CTA Chest w/ + w/o Contrast Patient Name: NATALI ARANA Computed Tomography ACCESSION EXAM DATE/TIME PROCEDURE ORDERING PROVIDER [id number] 08/06/2021 00:38 EDT CTA Chest w/ + w/o [id number] -CRESAP, LANDRY Contrast CPT code 71745 Q9967 Reason For Exam (CTA Chest w/ + w/o Contrast) pain Report CT ANGIOGRAM OF THE CHEST(PULMONARY EMBOLISM PROTOCOL): INDICATION: Chest pain. COMPARISON: No previous studies are available for comparison. CTA of the chest was performed following the IV administration of 75 cc of Isovue-370. The contrast bolus was optimized for maximal opacification of the pulmonary vascular tree. Fine section CT images were obtained from the apices through the lung bases. The study was reviewed in the axial, sagittal and coronal planes. In addition a 3-D volume rendering was processed concurrently by the radiologist and reviewed on a separate workstation. The thyroid is normal in appearance. The thoracic soft tissues are grossly normal. There is no axillary lymphadenopathy. The contrast bolus injection is suboptimal. There are no filling defects within the central pulmonary vascular tree. The distal branches are not adequately opacified to accurately evaluate. Evaluation of the pulmonary parenchyma demonstrates patchy left upper lobe infiltrates as well as smaller pneumonic infiltrates involving the left lower lobe. Several areas of groundglass opacification are seen involving the left apex. There is focal consolidation or scarring involving the anterior medial sulcus of the right middle lobe. There are no effusions. Evaluation of the mediastinum demonstrates no evidence of mediastinal mass or lymphadenopathy. A hiatal hernia is present. The heart is normal in size. A limited review of the upper abdomen demonstrates no gross abnormality. IMPRESSION: Suboptimal contrast opacification of the pulmonary vascular tree. No obvious central pulmonary embolus is identified. The distal pulmonary arterial branches are not adequately evaluated. There are patchy left-sided pulmonary infiltrates consistent with multifocal pneumonia. Computed Tomography Report Report Dictated on Final Dictating Physician: DO BAHENA ALFRED Signed Date and Time: 08/06/2021 1:29 am Signed by: DO BAHENA ALFRED Transcribed Date and Time: 08/06/2021 1:30 Normal [facility] ED Provider Noteon ED Provider Note Emergency Department Encounter [facility] ED Patient: Natali Arana : 1990 Date of Evaluation: 03/02/2021 ED Provider: MAYRA WESLEY MD Chief Complaint Chief Complaint Patient presents with ? Epistaxis KAKT[place]IK I wore a N95 mask, gloves, and goggles for the entirety of this encounter. Natali Arana is a 30 y.o. female who presents to the emergency department for evaluation of a nosebleed. Patient states that she started having approximately 2 nights ago and was able to stop it. It started again last night. She then had a little bit this morning. States that she has not had nosebleeds since she was 14 years old. Patient states this started approximately 20 minutes prior to her arrival here and was bleeding much heavier tonight. Patient was catching the blood in tissues and a towel. States that there were some blood clots. States it is only coming from the right nostril tonight. Denies any blood thinners or aspirin. Denies any trauma. ROS: At least 9 systems reviewed and otherwise acutely negative except as in the KAKT[place]IK. Past History Past Medical History: Diagnosis Date ? Thyroid disease Past Surgical History: Procedure Laterality Date ? ABDOMEN SURGERY Social History Socioeconomic History ? Marital status: Spouse name: Not on file ? Number of children: Not on file ? Years of education: Not on file ? Highest education level: Not on file Occupational History ? Not on file Tobacco Use ? Smoking status: Current Every Day Smoker Packs/day: 0.50 Types: Cigarettes ? Smokeless tobacco: Never Used Substance and Sexual Activity ? Alcohol use: Not Currently ? Drug use: Never ? Sexual activity: Not on file Other Topics Concern ? Not on file Social History Narrative ? Not on file Social Determinants of Health Financial Resource Strain: ? Difficulty of Paying Living Expenses: Food Insecurity: ? Worried About Running Out of Food in the Last Year: ? Ran Out of Food in the Last Year: Transportation Needs: ? Lack of Transportation (Medical): ? Lack of Transportation (Non-Medical): Physical Activity: ? Days of Exercise per Week: ? Minutes of Exercise per Session: Stress: ? Feeling of Stress : Social Connections: ? Frequency of Communication with Friends and Family: ? Frequency of Social Gatherings with Friends and Family: ? Attends [employer] Services: ? Active Member of Clubs or Organizations: ? Attends Club or Organization Meetings: ? Marital Status: Intimate Partner Violence: ? Fear of Current or Ex-Partner: ? Emotionally Abused: ? Physically Abused: ? Sexually Abused: No family history on file. Medications/Allergies Previous Medications BENZOCAINE-MENTHOL (CEPACOL EXTRA STRENGTH) 15-2.6 MG LOZG LOZENGE Take 1 lozenge by mouth every 2 hours as needed for Sore Throat IBUPROFEN (ADVIL;MOTRIN) 600 MG TABLET Take 1 tablet by mouth every 6 hours as needed for Pain or Fever LEVOTHYROXINE (SYNTHROID) 175 MCG TABLET Take 1 tablet by mouth daily LEVOTHYROXINE (SYNTHROID) 175 MCG TABLET Take 1 tablet by mouth daily METHYLPHENIDATE (CONCERTA) 54 MG EXTENDED RELEASE TABLET Take 54 mg by mouth every morning. No Known Allergies Physical Exam ED Triage Vitals [03/02/21 1857] BP Temp Temp Source Pulse Resp SpO2 Height Weight (!) 139/97 98.4 ?F (36.9 ?C) Oral 118 18 98 % 5' 6 (1.676 m) 260 lb (117.9 kg) General appearance: Well-appearing, no acute distress. Sitting upright in bed holding a towel underneath her nose with multiple tissues saturated in blood on the bed. Psych: Awake alert and oriented ?3. Pleasant and cooperative. Slightly anxious Skin: Warm and dry. Neck: Supple. Cardiovascular: Mild tachycardia with regular rhythm, normal S1-S2 no murmurs rubs or gallops. Lungs: no accessory muscle use, tachypnea, or retractions. HEENT: PERRL, EOMI, MMM Is an area that appears to have been bleeding from the right nasal septum no active bleeding currently. Patient senses that it has stopped. No blood in the left nares no blood draining down the posterior pharynx Screenings Diagnostics Labs: No results found for this visit on 03/02/21. Radiographs: No results found. Procedures None ED BEDSIDE ULTRASOUND: Performed by ED Physician - none EKG: ED Course and MDM In brief, Natali Arana is a 30 y.o. female who presented to the emergency department for evaluation of epistaxis from the right nares. Patient was given a nasal clamp and this was placed on her nose as well as some nasal Afrin on a cottonball. Patient's bleeding is controlled. Patient given the is as home first aid remedies for the nosebleed. Patient given return precautions. Reevaluation after placing some nasal Afrin on gauze as well as the nasal clamp patient is no longer bleeding. ED Medication Orders (From admission, onward) Start Ordered Status Ordering Provider 03/02/21191003/02/211909 oxymetazoline ( (more content not included)... Normal [facility] ED Provider Note I was not involved i n the care of this patient. Neftaly Hoffmann MD 03/03/212054 Normal [facility] Rapid Strep Screenon 020 S. pyogenes Ag Ql (Throat) see below Negative NA [place], [place] Comment on above: NEGATIVE (presumptiv e) for Group A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 follows: Requested Prescriptions Pending Prescriptions Disp Refills oxyCODONE IR (ROXICODONE) 5 mg immediate release tablet 42 tablet 0 Sig: Take 1 tablet by mouth every 4 hours as needed for pain for up to 7 days. Last visit: 04/10/2024 Pharmacy: [facility] Pharmacy Current Dosage: Patient is currently taking 1 tab every 4 hrs; Has 0 left. Future OV: 04/30/[address] Cheng Please review and advise; ph: [phone] [facility] [place] [facility] 04-10-2024 Telephone encounter Note Neuro SPINE CARE COORDINATION QUICK NOTE 03-18-24 SURGERY/PROCEDURE: L5-S1 laminectomy with bilateral foraminotomies, posterior nonsegmental screw fixation L5-S1, bilateral posterolateral arthrodesis L5-S1, removal of foreign body, use of computer-assisted volumetric navigation. 3 1/2 week post op Routed to ARMAAN for review / refill [facility] Work Phone: 04-10-2024 Miscellaneous Notes Neuro SPINE CARE COORDINATION QUICK NOTE 03-18-24 SURGERY/PROCEDURE: L5-S1 laminectomy with bilateral foraminotomies, posterior nonsegmental screw fixation L5-S1, bilateral posterolateral arthrodesis L5-S1, removal of foreign body, use of computer-assisted volumetric navigation. 3 1/2 week post op Routed to ARMAAN for review / refill Patient phones requesting refills as follows: Requested Prescriptions Pending Prescriptions Disp Refills oxyCODONE IR (ROXICODONE) 5 mg immediate release tablet 42 tablet 0 Sig: Take 1 tablet by mouth every 4 hours as needed for pain for up to 7 days. tiZANidine (ZANAFLEX) 4 mg tablet 120 tablet 1 Sig: Take 1 tablet by mouth every 6 hours as needed. Last visit: 04/03/2024 Pharmacy: [facility] [address] [place] [id number] [address] - [phone] Current Dosage: Patient is currently taking Oxy: 1 every 4hrs; has 13 left ; Tiza - 1 every 4hrs Has 0 left. Future OV: 04/23 with MD Please review and advise. Dominga Bruno documented in this encounter [facility] 04-10-2024 Telephone encounter Note Patient phones requesting refills as follows: Requested Prescriptions Pending Prescriptions Disp Refills oxyCODONE IR (ROXICODONE) 5 mg immediate release tablet 42 tablet 0 Sig: Take 1 tablet by mouth every 4 hours as needed for pain for up to 7 days. tiZANidine (ZANAFLEX) 4 mg tablet 120 tablet 1 Sig: Take 1 tablet by mouth every 6 hours as needed. Last visit: 04/03/2024 Pharmacy: [facility] [address] [place], [place] [address] - [address] [facility] [phone] Current Dosage: Patient is currently taking Oxy: 1 every 4hrs; has 13 left ; Tiza - 1 every 4hrs Has 0 left. Future OV: 04/23 with MD Please review and advise. Dmoinga Bruno [facility] 04-03-2024 Telephone encounter Note Neuro SPINE CARE COORDINATION QUICK NOTE 03-18-24 - SURGERY/PROCEDURE: L5-S1 laminectomy with bilateral foraminotomies, posterior nonsegmental screw fixation L5-S1, bilateral posterolateral arthrodesis L5-S1, removal of foreign body, use of computer-assisted volumetric navigation. Multiple calls to the pt with busy signal - my chart sent to the pt to inform her that Zanaflex has one refill Request for refill of Roxicodone forwarded to ARMAAN for review. [facility] Work Phone: 04-03-2024 Miscellaneous Notes Neuro SPINE CARE COORDINATION QUICK NOTE 03-18-24 - SURGERY/PROCEDURE: L5-S1 laminectomy with bilateral foraminotomies, posterior nonsegmental screw fixation L5-S1, bilateral posterolateral arthrodesis L5-S1, removal of foreign body, use of computer-assisted volumetric navigation. Multiple calls to the pt with busy signal - my chart sent to the pt to inform her that Zanaflex has one refill Request for refill of Roxicodone forwarded to ARMAAN for review. Patient phones requesting refills as follows: Requested Prescriptions Pending Prescriptions Disp Refills oxyCODONE IR (ROXICODONE) 5 mg immediate release tablet 42 tablet 0 Sig: Take 1 tablet by mouth every 4 hours as needed for pain for up to 7 days. tiZANidine (ZANAFLEX) 4 mg tablet 120 tablet 1 Sig: Take 1 tablet by mouth every 6 hours as needed. Last visit: 04/03/2024 Pharmacy: [facility] Current Dosage: Patient is currently taking Oxycodone 5 mg 1 tablet every 4 hours; Has 12 left. Tizanidine 1 tablet every 6 hours; Has 12 left. Future OV: 04/30/[address] Cheng Please review and advise. Malorie Link documented in this encounter [facility] 04-03-2024 Telephone encounter Note Patient phones requesting refills as follows: Requested Prescriptions Pending Prescriptions Disp Refills oxyCODONE IR (ROXICODONE) 5 mg immediate release tablet 42 tablet 0 Sig: Take 1 tablet by mouth every 4 hours as needed for pain for up to 7 days. tiZANidine (ZANAFLEX) 4 mg tablet 120 tablet 1 Sig: Take 1 tablet by mouth every 6 hours as needed. Last visit: 04/03/2024 Pharmacy: [facility] Current Dosage: Patient is currently taking Oxycodone 5 mg 1 tablet every 4 hours; Has 12 left. Tizanidine 1 tablet every 6 hours; Has 12 left. Future OV: 04/30/[address] Cheng Please review and advise. Malorie Link [facility] 04-03-2024 Note HNO ID: [id number] Author: MELODIE SCHAEFFER APRN.STRIPER Service: ? Author Type: Nurse Practitioner Type: Progress Notes Filed: 04/03/2024 13:43 Note Text: Subjective HPI HPI Natali Wall is a 33 year old female who presents today for CC of removal of khari from back Decompression laminectomy surgery. .Patient presents with: Suture Removal: 25 khari in back x16 days No past medical history on file. PAST SURGICAL HISTORY Procedure Laterality Date PAST SURGICAL HISTORY OF c section x3 PAST SURGICAL HISTORY OF 2018 exploratory lap with removal of a portion of her intestines. ALLERGIES Venom-[employer] MEDICATIONS oxyCODONE IR (ROXICODONE) 5 mg immediate release tablet Take 1 tablet by mouth every 4 hours as needed for pain for up to 7 days. tiZANidine (ZANAFLEX) 4 mg tablet Take 1 tablet by mouth every 6 hours as needed. senna-docusate (SENNA-S) 8.6-50 mg per tablet Take 2 tablets by mouth two times a day. acetaminophen (TYLENOL) 500 mg tablet Take 2 tablets by mouth every 8 hours as needed for pain. lamoTRIgine (LAMICTAL) 200 mg tablet Take 200 mg by mouth once daily. busPIRone (BUSPAR) 10 mg tablet Take 10 mg by mouth three times a day. levothyroxine (SYNTHROID) 150 mcg tablet Take 150 mcg by mouth once daily. QUEtiapine (SEROQUEL) 25 mg tablet Take 25 mg by mouth four times daily. 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 rate 18, weight 111.5 kg (245 lb 13 oz), last menstrual period 02/28/2024, SpO2 99%. Physical Exam Constitutional: General: She is not in acute distress. Appearance: She is not toxic-appearing or diaphoretic. HENT: Head: Normocephalic and atraumatic. Pulmonary: Effort: Pulmonary effort is normal. No accessory muscle usage or respiratory distress. Skin: Neurological: Mental Status: She is alert and oriented to person, place, and time. ASSESSMENT/PLAN: 1. Visit for suture removal - ICD9: V58.32, ICD10: Z48.02 Not appropriate for express care. Referred to pcp or surgeon. Melodie Schaeffer APRN.[facility] 04-03-2024 History of Present illness Narrative Images from the original note were not included. Subjective HPI HPI Natali Wall is a 33 year old female who presents today for CC of removal of khari from back Decompression laminectomy surgery. .Patient presents with: Suture Removal: 25 khari in back x16 days No past medical history on file. PAST SURGICAL HISTORY Procedure Laterality Date PAST SURGICAL HISTORY OF c section x3 PAST SURGICAL HISTORY OF 2018 exploratory lap with removal of a portion of her intestines. ALLERGIES Venom-Honey Bee MEDICATIONS oxyCODONE IR (ROXICODONE) 5 mg immediate release tablet Take 1 tablet by mouth every 4 hours as needed for pain for up to 7 days. tiZANidine (ZANAFLEX) 4 mg tablet Take 1 tablet by mouth every 6 hours as needed. senna-docusate (SENNA-S) 8.6-50 mg per tablet Take 2 tablets by mouth two times a day. acetaminophen (TYLENOL) 500 mg tablet Take 2 tablets by mouth every 8 hours as needed for pain. lamoTRIgine (LAMICTAL) 200 mg tablet Take 200 mg by mouth once daily. busPIRone (BUSPAR) 10 mg tablet Take 10 mg by mouth three times a day. levothyroxine (SYNTHROID) 150 mcg tablet Take 150 mcg by mouth once daily. QUEtiapine (SEROQUEL) 25 mg tablet Take 25 mg by mouth four times daily. 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 rate 18, weight 111.5 kg (245 lb 13 oz), last menstrual period 02/28/2024, SpO2 99%. Physical Exam Constitutional: General: She is not in acute distress. Appearance: She is not toxic-appearing or diaphoretic. HENT: Head: Normocephalic and atraumatic. Pulmonary: Effort: Pulmonary effort is normal. No accessory muscle usage or respiratory distress. Skin: Neurological: Mental Status: She is alert and oriented to person, place, and time. ASSESSMENT/PLAN: 1. Visit for suture removal - ICD9: V58.32, ICD10: Z48.02 Not appropriate for express care. Referred to pcp or surgeon. Melodie Schaeffer APRN.STRIPER documented in this encounter [facility] 03-27-2024 Telephone encounter Note Neuro SPINE CARE COORDINATION QUICK NOTE 03/18/24-SURGERY/PROCEDURE: L5-S1 laminectomy with bilateral foraminotomies, posterior nonsegmental screw fixation L5-S1, bilateral posterolateral arthrodesis L5-S1, removal of foreign body, use of computer-assisted volumetric navigation. CC- to ED ( [facility] ) twice for LBP - excruciating pain - B buttock pain symptoms worsened when standing and walking. Pt is currently using walker for ambulation. No BB dysfunction No LE symptoms Zanaflex 4 mg QID - no improvement Roxicodone 2 every 4 hours. [facility] Pt will start Medrol- directions reviewed with the pt who verbalizes good understanding. [facility] Work Phone: 03-27-2024 Miscellaneous Notes Neuro SPINE CARE COORDINATION QUICK NOTE 03/18/24-SURGERY/PROCEDURE: L5-S1 laminectomy with bilateral foraminotomies, posterior nonsegmental screw fixation L5-S1, bilateral posterolateral arthrodesis L5-S1, removal of foreign body, use of computer-assisted volumetric navigation. CC- to ED ( [facility] ) twice for LBP - excruciating pain - B buttock pain symptoms worsened when standing and walking. Pt is currently using walker for ambulation. No BB dysfunction No LE symptoms Zanaflex 4 mg QID - no improvement Roxicodone 2 every 4 hours. Pref[facility] Pt will start Medrol- directions reviewed with the pt who verbalizes good understanding. Pt states she has been to the ED twice for an injection for pain and she still is having trouble getting out of bed. Please call. Refill for Oxy was sent for approval today. [phone] Patient called reporting: increasing pain Pain level (Scale of 1 to 10): 10 Location: lower back, walking Describe your pain: aching and pressure When did the pain begin? Since surgery Any new weakness of the extremities? Yes Any new falling? No Any new numbness/tinging of the extremities? Yes Any changes in bowel/bladder control? No Are you taking pain medications or muscle relaxants? Yes If so, what are you taking and current dosage? Oxy 2 tabs every 4 hours Zanaflex 1 tab every 8 hours Forwarded to team for review. Micki Moreno documented in this encounter [facility] 03-27-2024 Telephone encounter Note Neuro SPINE CARE COORDINATION QUICK NOTE 03-18-24 SURGERY/PROCEDURE: L5-S1 laminectomy with bilateral foraminotomies, posterior nonsegmental screw fixation L5-S1, bilateral posterolateral arthrodesis L5-S1, removal of foreign body, use of computer-assisted volumetric navigation. Refill completed. [facility] Work Phone: 03-27-2024 Miscellaneous Notes Neuro SPINE CARE COORDINATION QUICK NOTE 03-18-24 SURGERY/PROCEDURE: L5-S1 laminectomy with bilateral foraminotomies, posterior nonsegmental screw fixation L5-S1, bilateral posterolateral arthrodesis L5-S1, removal of foreign body, use of computer-assisted volumetric navigation. Refill completed. Patient phones requesting refills as follows: Requested Prescriptions Pending Prescriptions Disp Refills oxyCODONE IR (ROXICODONE) 5 mg immediate release tablet 42 tablet 0 Sig: Take 1 tablet by mouth every 4 hours as needed for pain for up to 7 days. Last visit: 03/25/2024 Pharmacy: [facility] Current Dosage: Patient is currently taking 2 tabs every 4 hrs; Has 4 left. Future OV: 04/30/24 with [facility] Please review and advise. Micki Moreno documented in this encounter [facility] 03-27-2024 Telephone encounter Note Pt states she has been to the ED twice for an injection for pain and she still is having trouble getting out of bed. Please call. Refill for Oxy was sent for approval today. [phone] Patient called reporting: increasing pain Pain level (Scale of 1 to 10): 10 Location: lower back, walking Describe your pain: aching and pressure When did the pain begin? Since surgery Any new weakness of the extremities? Yes Any new falling? No Any new numbness/tinging of the extremities? Yes Any changes in bowel/bladder control? No Are you taking pain medications or muscle relaxants? Yes If so, what are you taking and current dosage? Oxy 2 tabs every 4 hours Zanaflex 1 tab every 8 hours Forwarded to team for review. Micki Moreno [facility] 03-27-2024 Telephone encounter Note Patient phones requesting refills as follows: Requested Prescriptions Pending Prescriptions Disp Refills oxyCODONE IR (ROXICODONE) 5 mg immediate release tablet 42 tablet 0 Sig: Take 1 tablet by mouth every 4 hours as needed for pain for up to 7 days. Last visit: 03/25/2024 Pharmacy: [facility] Current Dosage: Patient is currently taking 2 tabs every 4 hrs; Has 4 left. Future OV: 04/30/24 with [facility] Please review and advise. Micki Moreno [facility] 03-25-2024 Telephone encounter Note Called and spoke with patient. Oxycodone - has 3 1/2 days left Tizanidine - has 12 1/2 days left Patient stated she called for refills d/t holiday and weekend. Informed patient unable to refill oxycodone early.Informed patient will review on Saturday for need of refill of oxycodone. Patient states started feeling better yesterday, had to stay in bed today d/t pain. Encouraged to decrease oxycodone to 1 tablet every 4 hours as needed. Patient verbalized understanding . All questions answered. [facility] 03-25-2024 Miscellaneous Notes Called and spoke with patient. Oxycodone - has 3 1/2 days left Tizanidine - has 12 1/2 days left Patient stated she called for refills d/t holiday and weekend. Informed patient unable to refill oxycodone early.Informed patient will review on Saturday for need of refill of oxycodone. Patient states started feeling better yesterday, had to stay in bed today d/t pain. Encouraged to decrease oxycodone to 1 tablet every 4 hours as needed. Patient verbalized understanding . All questions answered. Pt returned call. Please call. [phone] Attempted to call patient without answer. Detailed voicemail message left for patient to call back office to discuss medication Patient filled 60 tablets of Zanaflex 2 days prior with an order of one tablet every 6 hours PRN for pain so should have enough of this medication. 03/21 patient was given 30 additional Oxycodone 5 for 5 days course. with the addition of the 42 filled on 03/20 PMDP report most likely has the patient not needing til 03/28. Covering nurse and I have tried the patient without answer. Will send message to Deric Valverde who returns on 03/27 Natalie Fuller PA-C March 25, 2024 4:16 PM Patient is one week post op SURGERY/PROCEDURE: L5-S1 laminectomy with bilateral foraminotomies, posterior nonsegmental screw fixation L5-S1, bilateral posterolateral arthrodesis L5-S1, removal of foreign body Call to patient to discuss current medication regimen. No answer, left message on unidentified VM to return call to office. Refill request routed to covering provider. Per 03/21/24 Telephone encounter, oxycodone rx was increased to 10 mg q4h, Zanaflex 4 mg q6h per Refill encounter 03/23/24 Current Dosages per patient phone message below: Oxycodone - Patient is currently taking 2 tablet around 2 am, 2 tablets around 8:37 am, 2 tablets around 11:07 am, 2 tablets around 3:07 pm, 2 tablets around 7:07 pm and 2 tablets around 11:07 pm; Has 21 left. Last filled 03/21/24 tiZANidine - Patient is currently taking 1 tablet around 2 am, 1 tablet around 8:37 am, 1 tablet around 2:37 pm and 1 tablet around 8:37 pm Patient phones requesting refills as follows: Requested Prescriptions Pending Prescriptions Disp Refills oxyCODONE IR (ROXICODONE) 5 mg immediate release tablet 30 tablet 0 Sig: Take 1 tablet by mouth every 4 hours as needed for pain for up to 5 days. tiZANidine (ZANAFLEX) 4 mg tablet 60 tablet 0 Sig: Take 1 tablet by mouth every 6 hours as needed. Last office visit date: 03/18/24 Pharmacy: [facility] Patient states she was told by nurse to increase medication Oxycodone to 2 tablets every 4 hours Oxycodone Current Dosage: Patient is currently taking 2 tablet around 2 am, 2 tablets around 8:37 am, 2 tablets around 11:07 am, 2 tablets around 3:07 pm, 2 tablets around 7:07 pm and 2 tablets around 11:07 pm; Has 21 left. Last filled 03/21/24 tiZANidine Current Dosage: Patient is currently taking 1 tablet around 2 am, 1 tablet around 8:37 am, 1 tablet around 2:37 pm and 1 tablet around 8:37 pm Please review and advise. Coby Bernal Best practice: put pertinent information (not related to change in dose) in bold at the top of the encounter. documented in this encounter [facility] 03-25-2024 Telephone encounter Note Pt returned call. Please call. [phone] [facility] 03-25-2024 Telephone encounter Note Attempted to call patient without answer. Detailed voicemail message left for patient to call back office to discuss medication Patient filled 60 tablets of Zanaflex 2 days prior with an order of one tablet every 6 hours PRN for pain so should have enough of this medication. 03/21 patient was given 30 additional Oxycodone 5 for 5 days course. with the addition of the 42 filled on 03/20 PMDP report most likely has the patient not needing til 03/28. Covering nurse and I have tried the patient without answer. Will send message to Deric Valverde who returns on 03/27 Natalie Fuller PA-C March 25, 2024 4:16 PM [facility] Work Phone: 03-25-2024 Telephone encounter Note Patient is one week post op SURGERY/PROCEDURE: L5-S1 laminectomy with bilateral foraminotomies, posterior nonsegmental screw fixation L5-S1, bilateral posterolateral arthrodesis L5-S1, removal of foreign body Call to patient to discuss current medication regimen. No answer, left message on unidentified VM to return call to office. Refill request routed to covering provider. Per 03/21/24 Telephone encounter, oxycodone rx was increased to 10 mg q4h, Zanaflex 4 mg q6h per Refill encounter 03/23/24 Current Dosages per patient phone message below: Oxycodone - Patient is currently taking 2 tablet around 2 am, 2 tablets around 8:37 am, 2 tablets around 11:07 am, 2 tablets around 3:07 pm, 2 tablets around 7:07 pm and 2 tablets around 11:07 pm; Has 21 left. Last filled 03/21/24 tiZANidine - Patient is currently taking 1 tablet around 2 am, 1 tablet around 8:37 am, 1 tablet around 2:37 pm and 1 tablet around 8:37 pm [facility] 03-25-2024 Telephone encounter Note Patient phones requesting refills as follows: Requested Prescriptions Pending Prescriptions Disp Refills oxyCODONE IR (ROXICODONE) 5 mg immediate release tablet 30 tablet 0 Sig: Take 1 tablet by mouth every 4 hours as needed for pain for up to 5 days. tiZANidine (ZANAFLEX) 4 mg tablet 60 tablet 0 Sig: Take 1 tablet by mouth every 6 hours as needed. Last office visit date: 03/18/24 Pharmacy: [facility] Patient states she was told by nurse to increase medication Oxycodone to 2 tablets every 4 hours Oxycodone Current Dosage: Patient is currently taking 2 tablet around 2 am, 2 tablets around 8:37 am, 2 tablets around 11:07 am, 2 tablets around 3:07 pm, 2 tablets around 7:07 pm and 2 tablets around 11:07 pm; Has 21 left. Last filled 03/21/24 tiZANidine Current Dosage: Patient is currently taking 1 tablet around 2 am, 1 tablet around 8:37 am, 1 tablet around 2:37 pm and 1 tablet around 8:37 pm Please review and advise. 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 [facility] 03-23-2024 Telephone encounter Note Call to the pt to review plan Robaxin on hold - pt will start Zanaflex 4 mg every 6 PRN LM with call back number -pt to provide update on her status in a few days. [facility] Work Phone: 03-23-2024 Miscellaneous Notes Call to the pt to review plan Robaxin on hold - pt will start Zanaflex 4 mg every 6 PRN LM with call back number -pt to provide update on her status in a few days. Patient's request for medication is as follows: Requested Prescriptions Signed Prescriptions Disp Refills tiZANidine (ZANAFLEX) 4 mg tablet 60 tablet 0 Sig: Take 1 tablet by mouth every 6 hours as needed. Authorizing Provider: DERIC ARAYA Sent electronically to [facility] - Pharmacy Information Pharmacy Address Telephone [facility] [employer] [id number] [place], [place] [id number] Deric Araya APRN.STRIPER Neuro SPINE CARE COORDINATION QUICK NOTE SURGERY/PROCEDURE: L5-S1 laminectomy with bilateral foraminotomies, posterior nonsegmental screw fixation L5-S1, bilateral posterolateral arthrodesis L5-S1, removal of foreign body, ( 03-18-24 ) CC- LBP - lumbar spine No LE symptoms. No BB dysfunction Pt has remained in bed due to pain Meds Robaxin 1000 mg QID- no help Roxicodone 5 mg every 4 hours Tylenol 1000 mg TID Ice Pt has not been seen by Home Care - will update SW as this was discussed prior to OR - pt resides in [facility] Pt has taken Zanaflex in the past with good effect. [employer] - [phone] Routed to covering ARMAAN for review. Patient called, had surgery on 03/18. Reporting: increasing pain Pain level (Scale 1 to 10): 9 Location: lower back, shaking, cannot stand up for a very long time Describe your pain: aching, dull, pressure, sharp, and shooting When did pain start? Since surgery Any new weakness of the extremities? Yes, legs shaking Any new falling? No Any new numbness/tinging of the extremities? No Does your incision have? Incision is fine Are you having a fever: No What medications are you taking for pain (pain medication, muscle relaxants)? Yes Medications: Oxycodone - 1 tab every 4 hrs Robaxin - 1 tab every 6 to 8 hrs Forwarded to team for review. Micki Moreno documented in this encounter [facility] 03-23-2024 Telephone encounter Note Patient's request for medication is as follows: Requested Prescriptions Signed Prescriptions Disp Refills tiZANidine (ZANAFLEX) 4 mg tablet 60 tablet 0 Sig: Take 1 tablet by mouth every 6 hours as needed. Authorizing Provider: DERIC ARAYA Sent electronically to [facility] - Pharm[facility] Information [facility] [id number] [place] [address] Deric Araya APRN.CNP [facility] 03-23-2024 Telephone encounter Note Neuro SPINE CARE COORDINATION QUICK NOTE SURGERY/PROCEDURE: L5-S1 laminectomy with bilateral foraminotomies, posterior nonsegmental screw fixation L5-S1, bilateral posterolateral arthrodesis L5-S1, removal of foreign body, ( 03-18-24 ) CC- LBP - lumbar spine No LE symptoms. No BB dysfunction Pt has remained in bed due to pain Meds Robaxin 1000 mg QID- no help Roxicodone 5 mg every 4 hours Tylenol 1000 mg TID Ice Pt has not been seen by Home Care - will update SW as this was discussed prior to OR - pt resides in [facility] Pt has taken Zanaflex in the past with good effect. [facility] - [phone] Routed to covering ARMAAN for review. [facility] 03-23-2024 Telephone encounter Note Patient called, had surgery on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 Date of Evaluation: 11/22/2022 ED Supervising Physician: Armond Banda MD I independently examined and evaluated [...] to contact the dictating provider for clarification.) Armond Banda MD Acute Care [facility] Armond Banda MD 11/22/22 1333 Pt c.o back pain for years. Pt has been working a lot lately and states her back pain has worsened documented in this encounter [facility] 11-22-2022 Emergency department Triage note Pt c.o back pain for years. Pt has been working a lot lately and states her back pain has worsened [facility] 11-22-2022 Physician Emergency department Note EMERGENCY [...] with patient to alternate Tylenol and ibuprofen bdvtzj-sao-rfigh. Set up patient for orthospine follow-up outpatient. Given return precautions. Patient is in agreement with getting discharged home and following up with orthospine. ED Course as of 11/22/22 1339 Alma Delia Nov 22, 2022 132 Patient reports improvement of symptoms after lidocaine patch and ibuprofen. Discussed with patient cutting down on Tylenol use and alternating Tylenol with ibuprofen npsrgl-lea-supyv. Discussed with patient the danger of overusing [...] Discharge 11/22/2022 01:28:27 PM PATIENT REFERRED TO: Jesus Wellington MD [address] [facility] [address] [facility] [address] Go to Appointment on 12/04/22 at 8:30am [...] Provider Verónica Vilchis MD Resident 11/22/22 1339 T [facility] 11-22-2022 Physician Emergency department Note Emergency Department Encounter [facility] ED Patient: Natali Arana : 1990 Date of Evaluation: 11/22/2022 ED Supervising Physician: Armond Banda MD I independently examined and evaluated [...] to contact the dictating provider for clarification.) Armond Banda MD [facility] [employer] Armond Banda MD 11/22/22 1335 [facility] Work Phone: 08-27-2022 Emergency department Note I, Nesha Alfaro MD, independently evaluated and examined the patient. Patient seen in conjunction with nurse practitioner or physician paperhanger assistant or resident physician. Appropriate PPE including n [...] to contact the dictating provider for clarification. Nesha Alfaro MD 08/27/22 2317 Nesha Alfaro MD 08/27/22 8467 documented in this encounter [facility] 08-27-2022 Physician Emergency department Note I, Nesha Alfaro MD, independently evaluated and examined the patient. Patient seen in conjunction with nurse practitioner or physician paperhanger assistant or resident physician. Appropriate PPE including n [...] to contact the dictating provider for clarification. Nesha Alfaro MD 08/27/22 5353 Nesha Alfaro MD 08/27/22 6959 [employer] Phone: 08-26-2022 Hospital Discharge instructions Jesus Perez, - 08/26/2022 9:08 AM EDT At this [...] infection and would like to do a tcpo-xih-ccn process in regards to starting antibiotics. Any worsening or changing symptoms please return to the emergency department. The following attachments cannot be sent through Care Everywhere.Allergic Reaction ED ([place]ian)documented in this encounter [facility] 08-26-2022 Emergency department Note Images from the original note were not included. EMERGENCY DEPARTMENT ENCOUNTER Pt Name: Natali Arana Birthdate 1990 Date of evaluation: 08/26/2022 ED Provider: Jesus Perez DO CHIEF COMPLAINT Chief Complaint Patient [...] AM PATIENT REFERRED TO: Zakiya Etienne NP [facility] [address] [place] [id number] DISCHARGE MEDICATIONS: New Prescriptions CEPHALEXIN (KEFLEX) 500 [...] to contact the dictating provider for clarification.) Jesus Perez DO (electronically signed) Emergency Medicine Provider Jesus Perez DO 08/26/22922 Presents with complaints of left sided facial swelling since last night around 1999. Denies new meds, food, soaps. Denies any dental pain. documented in this encounter [facility] 08-26-2022 Emergency department Triage note Presents with complaints of left sided facial swelling since last night around 1999. Denies new meds, food, soaps. Denies any dental pain. [facility] 08-26-2022 Physician Emergency department Note Images from the original note were not included. EMERGENCY DEPARTMENT ENCOUNTER Pt Name: Natali Arana Birthdate 1990 Date of evaluation: 08/26/2022 ED Provider: Jesus Perez DO CHIEF COMPLAINT Chief Complaint Patient [...] REFERRED TO: Zakiya Etienne NP [address] [place] [address] DISCHARGE MEDICATIONS: New Prescriptions CEPHALEXIN (KEFLEX) 500 [...] to contact the dictating provider for clarification.) Jesus Perez DO (electronically signed) Emergency Medicine Provider Jessu Perez DO 08/26/22 0923 [facility] 06-25-2022 Hospital Discharge instructions Nesha Alfaro MD - 06/25/2022 12:45 PM EST Continue all current medications. The following attachments cannot be sent through Care Everywhere.Vertigo (a Type of Dizziness) Discharge Instructions ([place]ian)Urinary Tract Infection, Adult ED ([place]ian)documented in this encounter [facility] 06-25-2022 Emergency department Note Pt prsents to ED. States has been feeling dizzy for 4 days. Pt is alert and Oriented. Calm and Cooperative Jessica Tony RN 06/25/22 1042 [facility] 06-25-2022 Emergency department Note Pt prsents to ED. States has been feeling dizzy for 4 days. Pt is alert and Oriented. Calm and Cooperative Jessica Tony RN 06/25/22 1042 [facility] ED EMERGENCY DEPARTMENT ENCOUNTER Pt Name: Natali Arana Birthdate 1990 Date of evaluation: 06/25/2022 Provider: Nesha Alfaro MD CHIEF COMPLAINT Chief Complaint Patient presents with Dizziness HISTORY OF PRESENT ILLNESS (Location/Symptom, Timing/Onset,Context/Setting, Quality, Duration, Modifying Factors, Severity) Note limiting factors. Natali Arana is a 31 y.o. female who presents to the emergency department with dizziness. Past 4 days. Worse with movement. She denies any chest pain, shortness of breath, fever, chills, lightheadedness, dizziness. Does not feel sick or ill. Never had this before. Other medical problems otherwise her thyroid issues. Better lying still worse with movement. No trauma has not fallen. HPI Historian is the patient. Nurse's notes for past medical history, surgical history, social history were reviewed. Medications and allergies reviewed. PAST MEDICAL HISTORY Past Medical History: Diagnosis Date Thyroid disease SURGICALHISTORY Past Surgical History: Procedure Laterality Date ABDOMINAL SURGERY CURRENT MEDICATIONS Previous Medications No medications on file Bee venom FAMILY HISTORY No family history on file. SOCIAL HISTORY Social History Socioeconomic History Marital status: Tobacco Use Smoking status: Every Day Packs/day: 0.50 Types: Cigarettes Smokeless tobacco: Never Substance and Sexual Activity Alcohol use: Not Currently Drug use: Never SCREENINGS PHYSICAL EXAM (up to 7 for level 4, 8 or more for level 5) @EDTRIAGEVSS@ Appropriate PPE including n 95, gown, gloves, goggles where worn when appropriate with this patient. Physical Exam Vital signs reviewed general: Alert and oriented 3 head: Atraumatic eyes: Equal round reactive to light and accommodating, pupils are equal, round and reactive to light and accommodation oropharynx: Clear and well hydrated neck: Supple heart: Regular rate and rhythm, no murmurs lungs: Clear to auscultation bilaterally abdomen: Soft nontender, positive bowel sounds, no peritoneal findings. Extremities: Moving all fours, no tenderness. Normal capillary refill. Skin: No rash or lesions -to the exposed skin neurologically: Alert and oriented 3, cranial nerves grossly intact, strength, sensation, reflexes intact. Cerebellar function intact. Gait is steady. Lying still she felt good with movement she did get symptoms that are consistent with vertigo. Test of skew is negative. NIH equals 0. DIAGNOSTIC RESULTS RADIOLOGY: Interpretation per the Radiologist below, if availableat the time of this note: No orders to display ED BEDSIDE ULTRASOUND: Performed by ED Physician - none LABS: Labs Reviewed COMPREHENSIVE METABOLIC PANEL - Abnormal Result Value SODIUM 137 POTASSIUM 4.0 CHLORIDE 103 CARBON DIOXIDE 29 ANION GAP 5 UREA NITROGEN 15 CREATININE 0.83 GLUCOSE 90 CALCIUM 9.5 AST (SGOT) 35 ALT 49 (*) ALKALINE PHOSPHATASE 60 ALBUMIN 4.5 BILIRUBIN, TOTAL 0.3 TOTAL PROTEIN 7.7 eGFR >90.0 THYROID STIMULATING HORMONE - Abnormal THYROID STIMULATING HORMONE 0.118 (*) COMPLETE URINALYSIS - Abnormal Color, Urine Light [place] (*) Clarity, Urine Turbid (*) pH, Urine 6.5 Leukocytes, Urine 250 (*) Nitrite, Urine Negative Protein, Urine 30 (*) Glucose, Urine Normal Bilirubin, Urine Negative Ketones, Urine Negative Urobilinogen, Urine Normal Blood, Urine >1.0 (*) RBC, Urine >100 (*) WBC, Urine 51-100 (*) Squamous Epithelial, Urine 6-10 (*) Bacteria, Urine Negative Mucus, Urine Few SPECIFIC GRAVITY OF URINE (NUMERIC) 1.015 CBC WITH AUTO DIFFERENTIAL - Normal Auto WBC 9.0 RBC 4.79 Hemoglobin 13.8 Hematocrit 41.5 MCV 86.7 MCH 28.7 MCHC 33.1 RDW 14.0 Platelets 339 MPV 7.8 nRBC 0.1 Neutrophils Relative 60.5 Lymphocytes Relative 28.6 Monocytes Relative 7.5 Eosinophils Relative 3.0 Basophils Relative 0.4 Neutrophils Absolute 5.4 Lymphocytes Absolute 2.6 Monocytes Absolute 0.7 Eosinophils Absolute 0.3 Basophils Absolute 0.0 URINE CULTURE URINE CULTURE HCG QUALITATIVE URINE HCG,URINE QUAL Negative Narrative: is the most common reason for HCG in urine, although choriocarcinoma, hydatidiform mole, and certain nontrophoblastic malignancies also result in detectable urinary HCG levels. Sensitivity = 20mIU/mL. COMPLETE URINALYSIS WITH REFLEX TO CULTURE Narrative: The following orders were created for panel order Urinalysis complete with reflex to Culture. Procedure Abnormality Status --------- ------ Complete Urinalysis[[id number]] Abnormal Final result Please view results for these tests on the individual orders. All other labs were within normal range or not returned as of thisdictation. EMERGENCYDEPARTMENT COURSE and DIFFERENTIAL DIAGNOSIS/MDM: Vitals: Vitals: 06/25/22 0952 06/25/22 1111 06/25/22 1230 BP: (!) 155/114 126/84 130/72 BP Location: Left arm Patient Position: Lying Pulse: 93 86 89 Resp: 17 18 18 Temp: 36.2 C (97.1 F) TempSrc: Temporal SpO2: 100% 99% 98% Weight: 118 kg (260 lb) Medical Decision Making Amount and/or Complexity of Data Reviewed Labs: ordered. ECG/medicine tests: ordered. EMERGENCY DEPARTMENT COURSE and DIFFERENTIAL DIAGNOSIS/MDM: Vitals: Vitals: 06/25/22 0952 06/25/22 1111 06/25/22 1230 BP: (!) 155/114 126/84 130/72 BP Location: Left arm Patient Position: Lying Pulse: 93 86 89 Resp: 17 18 18 Temp: 36.2 C (97.1 F) TempSrc: Temporal SpO2: 100% 99% 98% Weight: 118 kg (260 lb) The patient presented with a chief complaint of dizziness. The differential diagnosis associated with this patient's presentation includes vertigo, posterior circulation CVA, electrolyte disturbance, dehydration. Our workup consisted of ordering/reviewing labs and physical exam. Labs reviewed. Patient does have a UTI. Her exam is not consistent with posterior circulation. I believe she likely has vertigo. Patient was treated with meclizine 25 mg orally here. Also given 1 L normal saline. Repeat evaluation she feels better. Heart rates improved. Patient be sent home on oral meclizine every 8 hours as needed for dizziness given 15 tablets. Also Keflex 500 mg twice a day for 5 days. Urine was sent for culture. Patient to return if any problems or concerns. Father doctor in 1 week. Patient agrees to plan. Diagnoses as of 06/25/22 1246 Vertigo Urinary tract infection with hematuria, site unspecified Diagnostics considered but not indicated based on history, physical, testing: CT of head however physical exam evaluation is not consistent with posterior circulation cause of dizziness. External records reviewed: Outpatient notes prior visit from 03/06/2022 Radiologic diagnostics interpreted by me: film images such as CT, Ultrasound and MRI are read by the radiologist. Plain radiographic images are visualized and preliminarily interpreted by the emergency physician with the below findings: EKG per my interpretation sinus rhythm no acute ST elevation or ischemic findings, normal intervals, no acute change compared to previous. Discussions with other clinicians: none Chronic conditions impacting care: Thyroid disease Social determinants of health affecting care: none Shared decision making: Agrees to treatment plan ED Medications managed: Medications sodium chloride 0.9 % bolus 1,000 mL (0 mL IntraVENous Stopped 06/25/22 1138) meclizine (Antivert) tablet 25 mg (25 mg Oral Given 06/25/22 1037) Prescription drugs considered: Meclizine 25 mg orally as needed every 8 hours given 15 tablets. Keflex 500 mg twice daily orally for 5 days. PROCEDURES: Unless otherwise noted below, none Procedures IMPRESSION 1. Vertigo 2. Urinary tract infection with hematuria, site unspecified DISPOSITION/PLAN DISPOSITION Discharge 06/25/2022 12:44:47 PM PATIENT REFERRED TO: Zakiya Etienne, TIFFANIE [address] [facility] [address] [facility] [address] In 1 week DISCHARGE MEDICATIONS: New Prescriptions CEPHALEXIN (KEFLEX) 500 MG CAPSULE Take 1 capsule (500 mg) by mouth 2 times daily for 5 days. MECLIZINE (ANTIVERT) 25 MG TABLET Take 1 tablet (25 mg) by mouth 3 times daily as needed for dizziness for up to 5 days. @[facility]([id number]:LAST:1)@ (Comment: Please notethis report has been produced using speech recognition software and may contain errors related to that system including errors in grammar, punctuation, and spelling, as well as words and phrases that may be inappropriate.If there is any questions or concerns please feel free to contact the dictating provider for clarification). Nesha Alfaro MD (electronically signed) Attending Emergency Physician Nesha Alfaro MD 06/25/22 1246 Pt presents to ED for dizziness that started approx 4-5 days ago. Pt reports feeling SOB with dizzy spells and some nasal congestion. Pt states a few days ago she woke up with some swelling to the L cheek. States every time she eats something she falls asleep. documented in this encounter [facility] 06-25-2022 Emergency department Triage note Pt presents to ED for dizziness that started approx 4-5 days ago. Pt reports feeling SOB with dizzy spells and some nasal congestion. Pt states a few days ago she woke up with some swelling to the L cheek. States every time she eats something she falls asleep. [facility] 06-25-2022 Physician Emergency department Note [facility] ED EMERGENCY DEPARTMENT ENCOUNTER Pt Name: Natali Arana Birthdate 1990 Date of evaluation: 06/25/2022 Provider: Nesha lAfaro MD CHIEF COMPLAINT Chief Complaint Patient presents with Dizziness HISTORY OF PRESENT ILLNESS (Location/Symptom, Timing/Onset,Context/Setting, Quality, Duration, Modifying Factors, Severity) Note limiting factors. Natali Arana is a 31 y.o. female who presents to the emergency department with dizziness. Past 4 days. Worse with movement. She denies any chest pain, shortness of breath, fever, chills, lightheadedness, dizziness. Does not feel sick or ill. Never had this before. Other medical problems otherwise her thyroid issues. Better lying still worse with movement. No trauma has not fallen. HPI Historian is the patient. Nurse's notes for past medical history, surgical history, social history were reviewed. Medications and allergies reviewed. PAST MEDICAL HISTORY Past Medical History: Diagnosis Date Thyroid disease SURGICALHISTORY Past Surgical History: Procedure Laterality Date ABDOMINAL SURGERY CURRENT MEDICATIONS Previous Medications No medications on file Bee venom FAMILY HISTORY No family history on file. SOCIAL HISTORY Social History Socioeconomic History Marital status: Tobacco Use Smoking status: Every Day Packs/day: 0.50 Types: Cigarettes Smokeless tobacco: Never Substance and Sexual Activity Alcohol use: Not Currently Drug use: Never SCREENINGS PHYSICAL EXAM (up to 7 for level 4, 8 or more for level 5) @[facility]@ Appropriate PPE including n 95, gown, gloves, goggles where worn when appropriate with this patient. Physical Exam Vital signs reviewed general: Alert and oriented 3 head: Atraumatic eyes: Equal round reactive to light and accommodating, pupils are equal, round and reactive to light and accommodation oropharynx: Clear and well hydrated neck: Supple heart: Regular rate and rhythm, no murmurs lungs: Clear to auscultation bilaterally abdomen: Soft nontender, positive bowel sounds, no peritoneal findings. Extremities: Moving all fours, no tenderness. Normal capillary refill. Skin: No rash or lesions -to the exposed skin neurologically: Alert and oriented 3, cranial nerves grossly intact, strength, sensation, reflexes intact. Cerebellar function intact. Gait is steady. Lying still she felt good with movement she did get symptoms that are consistent with vertigo. Test of skew is negative. NIH equals 0. DIAGNOSTIC RESULTS RADIOLOGY: Interpretation per the Radiologist below, if availableat the time of this note: No orders to display ED BEDSIDE ULTRASOUND: Performed by ED Physician - none LABS: Labs Reviewed COMPREHENSIVE METABOLIC PANEL - Abnormal Result Value SODIUM 137 POTASSIUM 4.0 CHLORIDE 103 CARBON DIOXIDE 29 ANION GAP 5 UREA NITROGEN 15 CREATININE 0.83 GLUCOSE 90 CALCIUM 9.5 AST (SGOT) 35 ALT 49 (*) ALKALINE PHOSPHATASE 60 ALBUMIN 4.5 BILIRUBIN, TOTAL 0.3 TOTAL PROTEIN 7.7 eGFR >90.0 THYROID STIMULATING HORMONE - Abnormal THYROID STIMULATING HORMONE 0.118 (*) COMPLETE URINALYSIS - Abnormal Color, Urine Light [place] (*) Clarity, Urine Turbid (*) pH, Urine 6.5 Leukocytes, Urine 250 (*) Nitrite, Urine Negative Protein, Urine 30 (*) Glucose, Urine Normal Bilirubin, Urine Negative Ketones, Urine Negative Urobilinogen, Urine Normal Blood, Urine >1.0 (*) RBC, Urine >100 (*) WBC, Urine 51-100 (*) Squamous Epithelial, Urine 6-10 (*) Bacteria, Urine Negative Mucus, Urine Few SPECIFIC GRAVITY OF URINE (NUMERIC) 1.015 CBC WITH AUTO DIFFERENTIAL - Normal Auto WBC 9.0 RBC 4.79 Hemoglobin 13.8 Hematocrit 41.5 MCV 86.7 MCH 28.7 MCHC 33.1 RDW 14.0 Platelets 339 MPV 7.8 nRBC 0.1 Neutrophils Relative 60.5 Lymphocytes Relative 28.6 Monocytes Relative 7.5 Eosinophils Relative 3.0 Basophils Relative 0.4 Neutrophils Absolute 5.4 Lymphocytes Absolute 2.6 Monocytes Absolute 0.7 Eosinophils Absolute 0.3 Basophils Absolute 0.0 URINE CULTURE URINE CULTURE HCG QUALITATIVE URINE HCG,URINE QUAL Negative Narrative: is the most common reason for HCG in urine, although choriocarcinoma, hydatidiform mole, and certain nontrophoblastic malignancies also result in detectable urinary HCG levels. Sensitivity = 20mIU/mL. COMPLETE URINALYSIS WITH REFLEX TO CULTURE Narrative: The following orders were created for panel order Urinalysis complete with reflex to Culture. Procedure Abnormality Status --------- ------ Complete Urinalysis[[id number]] Abnormal Final result Please view results for these tests on the individual orders. All other labs were within normal range or not returned as of thisdictation. EMERGENCYDEPARTMENT COURSE and DIFFERENTIAL DIAGNOSIS/MDM: Vitals: Vitals: 06/25/22 0952 06/25/22 1111 06/25/22 1230 BP: (!) 155/114 126/84 130/72 BP Location: Left arm Patient Position: Lying Pulse: 93 86 89 Resp: 17 18 18 Temp: 36.2 C (97.1 F) TempSrc: Temporal SpO2: 100% 99% 98% Weight: 118 kg (260 lb) Medical Decision Making Amount and/or Complexity of Data Reviewed Labs: ordered. ECG/medicine tests: ordered. EMERGENCY DEPARTMENT COURSE and DIFFERENTIAL DIAGNOSIS/MDM: Vitals: Vitals: 06/25/22 0952 06/25/22 1111 06/25/22 1230 BP: (!) 155/114 126/84 130/72 BP Location: Left arm Patient Position: Lying Pulse: 93 86 89 Resp: 18 Temp: 36.2 C (97.1 F) TempSrc: Temporal SpO2: 100% 99% 98% Weight: 118 kg (260 lb) The patient presented with a chief complaint of dizziness. The differential diagnosis associated with this patient's presentation includes vertigo, posterior circulation CVA, electrolyte disturbance, dehydration. Our workup consisted of ordering/reviewing labs and physical exam. Labs reviewed. Patient does have a UTI. Her exam is not consistent with posterior circulation. I believe she likely has vertigo. Patient was treated with meclizine 25 mg orally here. Also given 1 L normal saline. Repeat evaluation she feels better. Heart rates improved. Patient be sent home on oral meclizine every 8 hours as needed for dizziness given 15 tablets. Also Keflex 500 mg twice a day for 5 days. Urine was sent for culture. Patient to return if any problems or concerns. Father doctor in 1 week. Patient agrees to plan. Diagnoses as of 06/25/22 1246 Vertigo Urinary tract infection with hematuria, site unspecified Diagnostics considered but not indicated based on history, physical, testing: CT of head however physical exam evaluation is not consistent with posterior circulation cause of dizziness. External records reviewed: Outpatient notes prior visit from 03/06/2022 Radiologic diagnostics interpreted by me: film images such as CT, Ultrasound and MRI are read by the radiologist. Plain radiographic images are visualized and preliminarily interpreted by the emergency physician with the below findings: EKG per my interpretation sinus rhythm no acute ST elevation or ischemic findings, normal intervals, no acute change compared to previous. Discussions with other clinicians: none Chronic conditions impacting care: Thyroid disease Social determinants of health affecting care: none Shared decision making: Agrees to treatment plan ED Medications managed: Medications sodium chloride 0.9 % bolus 1,000 mL (0 mL IntraVENous Stopped 06/25/22 1138) meclizine (Antivert) tablet 25 mg (25 mg Oral Given 06/25/22 1037) Prescription drugs considered: Meclizine 25 mg orally as needed every 8 hours given 15 tablets. Keflex 500 mg twice daily orally for 5 days. PROCEDURES: Unless otherwise noted below, none Procedures IMPRESSION 1. Vertigo 2. Urinary tract infection with hematuria, site unspecified DISPOSITION/PLAN DISPOSITION Discharge 06/25/2022 12:44:47 PM PATIENT REFERRED TO: Zakiya Etienne NP [address] [facility] [address] [facility] [address] In 1 week DISCHARGE MEDICATIONS: New Prescriptions CEPHALEXIN (KEFLEX) 500 MG CAPSULE Take 1 capsule (500 mg) by mouth 2 times daily for 5 days. MECLIZINE (ANTIVERT) 25 MG TABLET Take 1 tablet (25 mg) by mouth 3 times daily as needed for dizziness for up to 5 days. @[id number]:LAST:1)@ (Comment: Please notethis report has been produced using speech recognition software and may contain errors related to that system including errors in grammar, punctuation, and spelling, as well as words and phrases that may be inappropriate.If there is any questions or concerns please feel free to contact the dictating provider for clarification). Nesha Alfaro MD (electronically signed) Attending Emergency Physician Nesha Alfaro MD 06/25/22 1246 [facility] 08-06-2021 Note Hospitalist Discharg e Summary [...] Your Medications These medications were sent to [address] [phone] - [phone] [place] [id number] ? levoFLOXacin 750 MG tablet DIET: ADULT DIET; Regular ACTIVITY: as tolerated SIGNIFICANT DIAGNOSTIC STUDIES: labs, CTA PENDING STUDIES: None RECOMMENDED NEXT STEPS: take Abx DISPOSITION: AMA FACILITY/HOME CARE AGENCY NAME: No primary care provider on file. Follow up with Primary doctor. Return to ED If worsening symptoms. SIGNED: Douglas Hernandes MD 08/06/2021, 4:59 AM [facility] Evaluation note Diagnosis Epistaxis- Primary [facility]: [facility]* Diagnosis Pneumonia Pneumonia, organism unspecified documented in this encounter [employer] Work Phone: Evaluation note* Diagnosis Pneumonia due to infectious organism, unspecified laterality, unspecified part of lung- Primary documented in this encounter [facility] Work Phone: Evaluation note* Diagnosis Swelling of left side of face- Primary documented in this encounter [facility] note* Diagnosis Facial swelling- Primary Swelling, mass, or lump in head and neck Dental abscess Periapical abscess without sinus documented in this encounter [facility] note* Diagnosis Chronic low back pain without sciatica, unspecified back pain laterality- Primary Upper back pain Unspecified backache Other chronic back pain documented in this encounter [facility] note* Diagnosis Lumbar radiculopathy- Primary Thoracic or lumbosacral neuritis or radiculitis, unspecified Lumbar spondylosis Lumbosacral spondylosis without myelopathy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 [address] Surgeon General Surgery 12/10/22 Team Status: Active Member Role Status Dates No Primary Care Physician Primary Care Provider Active Team Status: Inactive Member Role Status Dates No Primary Care Physician Primary Care Provider Active Dr. Rufus Ni MD Attending Provider Active Team Status: Inactive Member Role Status Dates No Primary Care Physician Primary Care Provider Active Dr. Jeni Jones MD Emergency Provider Active Quality Assurance Assessor Relationship Specialty Start Date End Date Leti Daniel DO [address] [place] [address] NI Referring Team Psych/Mental Health 10/01/23 Quality Assurance Assessor Relationship Specialty Start Date End Date Leti Daniel DO [address] [place] [address] NI Referring Team Psych/Mental Health 10/01/23 Quality Assurance Assessor Relationship Specialty Start Date End Date Leti Daniel DO [address] [place] [address] NI Referring Team Psych/Mental Health 10/01/23 Quality Assurance Assessor Relationship Specialty Start Date End Date Leti Daniel DO [address] [place] [address] PCP - General Psych/Mental Health 10/23/23 Leti Daniel DO [address] [place] [address] NI Referring Team Psych/Mental Health 10/01/23 Quality Assurance Assessor Relationship Specialty Start Date End Date Leti Daniel DO [address] [place] [address] PCP - General Psych/Mental Health 10/23/23 Leti Daniel DO [address] [place] [address] NI Referring Team Psych/Mental Health 10/01/23 Quality Assurance Assessor Relationship Specialty Start Date End Date Jean Claude Joyce MD [address] [place] [address] PCP - General Internal Medicine 11/14/23 Horace Willingham MD [address] [place] [address] [address] [place], [place] [id number] Surgeon General Surgery 12/10/22 Quality Assurance Assessor Relationship Specialty Start Date End Date Jean Claude Joyce MD [address] [place], [place] [address] PCP - General Internal Medicine 11/14/23 Horcae Willingham MD [address] [place] [address] [address] [place], [place] [id number] Surgeon General Surgery 12/10/22 Quality Assurance Assessor Relationship Specialty Start Date End Date Jean Claude Joyce MD [address] [place] [address] PCP - General Internal Medicine 11/14/23 Horace Willingham MD [address] [facility] [address] [place] [address] Surgeon General Surgery 12/10/22 Quality Assurance Assessor Relationship Specialty Start Date End Date Jean Claude Joyce MD [address] [place], [place] [address] PCP - General Internal Medicine 11/14/23 Horace Willingham MD [address] [place] [address] [address] [place], [place] [id number] Surgeon General Surgery 12/10/22 Quality Assurance Assessor Relationship Specialty Start Date End Date Leti Daniel DO [address] [place], [place] [address] PCP - General Psych/Mental Health 10/23/23 Leti Daniel DO [address] [place] [address] NI Referring Team Psych/Mental Health 10/01/23 Quality Assurance Assessor Relationship Specialty Start Date End Date Jean Claude Joyce MD [address] [place], [place] [address] PCP - General Internal Medicine 11/14/[address] [place], [place] [id number] Surgeon General Surgery 12/10/22 Quality Assurance Assessor Relationship Specialty Start Date End Date Leti Daniel DO [address] [place] [address] PCP - General Psych/Mental Health 10/23/23 Leti Daniel DO [address] [place] [address] NI Referring Team Psych/Mental Health 10/01/23 Quality Assurance Assessor Relationship Specialty Start Date End Date Jean Claude Joyce MD [address] [place] [address] PCP - General Internal Medicine 11/14/23 Horace Willingham MD [address] [place] [address] [address] [place], [place] [id number] Surgeon General Surgery 12/10/22 Quality Assurance Assessor Relationship Specialty Start Date End Date Jean Claude Joyce MD [address] [place], [place] [id number] PCP - General Internal Medicine 11/14/23 Horace Willingham MD [address] [place] [address] [address] [place], [place] [id number] Surgeon General Surgery 12/10/22 Quality Assurance Assessor Relationship Specialty Start Date End Date Jean Claude Joyce MD [address] [place] [address] PCP - General Internal Medicine 11/14/23 Horace Willingham MD [address] [place] [address] [address] [place] [address] Surgeon General Surgery 12/10/22 Quality Assurance Assessor Relationship Specialty Start Date End Date Leti Daniel DO [address] [place] [address] PCP - General Psych/Mental Health 10/23/23 Leti Daniel DO [address] [place] [address] NI Referring Team Psych/Mental Health 10/01/23 Quality Assurance Assessor Relationship Specialty Start Date End Date Leti Daniel DO [address] [place] [address] PCP - General Psych/Mental Health 10/23/23 Leti Daniel DO [address] [place] [address] NI Referring Team Psych/Mental Health 10/01/23 Quality Assurance Assessor Relationship Specialty Start Date End Date Leti Daniel DO [address] [place] [address] PCP - General Psych/Mental Health 10/23/23 Leti Daniel DO [address] [place] [address] NI Referring Team Psych/Mental Health 10/01/23 Quality Assurance Assessor Relationship Specialty Start Date End Date Leti Daniel DO [address] [place] [address] PCP - General Psych/Mental Health 10/23/23 Leti Daniel DO [address] [place] [address] NI Referring Team Psych/Mental Health 10/01/23 Quality Assurance Assessor Relationship Specialty Start Date End Date Leti Daniel DO [address] [place] [address] PCP - General Psych/Mental Health 10/23/23 Leti Daniel DO [address] [place] [address] NI Referring Team Psych/Mental Health 10/01/23 Quality Assurance Assessor Relationship Specialty Start Date End Date Jean Claude Joyce MD [address] [facility] [place] [address] PCP - General Internal Medicine 02/11/24 Leti Daniel DO [address] [place] [address] NI Referring Team Psych/Mental Health 10/01/23 Quality Assurance Assessor Relationship Specialty Start Date End Date Jean Claude Joyce MD [address] [address] PCP - General Internal Medicine 02/11/24 Leti Daniel DO [address] [place] [address] NI Referring Team Psych/Mental Health 10/01/23 Quality Assurance Assessor Relationship Specialty Start Date End Date Jean Claude Joyce MD [address] [place] [address] PCP - General Internal Medicine 02/11/24 Leti Daniel DO [address] [place] [address] NI Referring Team Psych/Mental Health 10/01/23 Quality Assurance Assessor Relationship Specialty Start Date End Date Jean Claude Joyce MD [address] [facility] [place] [address] PCP - General Internal Medicine 02/11/24 Leti Daniel DO [address] [place] [address] NI Referring Team Psych/Mental Health 10/01/23 Quality Assurance Assessor Relationship Specialty Start Date End Date Jean Claude Joyce MD [address] [facility] [place] [address] PCP - General Internal Medicine 02/11/24 Leti Daniel DO [address] [place] [address] NI Referring Team Psych/Mental Health 10/01/23 Quality Assurance Assessor Relationship Specialty Start Date End Date Jean Claude Joyce MD [address] [facility] [place] [address] PCP - General Internal Medicine 02/11/24 Leti Daniel DO [address] [place] [address] NI Referring Team Psych/Mental Health 10/01/23 Quality Assurance Assessor Relationship Specialty Start Date End Date Jean Claude Joyce MD [address] [place] [place] [address] PCP - General Internal Medicine 02/11/24 Leti Daniel DO [address] [place] [address] NI Referring Team Psych/Mental Health 10/01/23 Quality Assurance Assessor Relationship Specialty Start Date End Date Jean Claude Joyce MD [address] [facility] [place] [address] PCP - General Internal Medicine 02/11/24 Leti Daniel DO [address] [place] [address] [place] Referring Team Psych/Mental Health 10/01/23 Quality Assurance Assessor Relationship Specialty Start Date End Date Jean Claude Joyce MD [address] [facility] [place] [address] PCP - General Internal Medicine 02/11/24 Leti Daniel DO [address] [place] [address] [place] Referring Team Psych/Mental Health 10/01/23 Quality Assurance Assessor Relationship Specialty Start Date End Date Jean Claude Joyce MD [address] [place] [address] PCP - General Internal Medicine 02/11/24 Leti Daniel DO [address] [place] [address] [place] Referring Team Psych/Mental Health 10/01/23 Quality Assurance Assessor Relationship Specialty Start Date End Date Jean Claude Joyce MD [address] [place] [address] PCP - General Internal Medicine 02/11/24 Leti Daniel DO [address] [place], [place] [address] NI Referring Team Psych/Mental Health 10/01/23 Quality Assurance Assessor Relationship Specialty Start Date End Date Jean Claude Joyce MD [address] [facility] [place], [place] [address] PCP - General Internal Medicine 02/11/24 Leti Daniel DO [address] [place] [address] [place] Referring Team Psych/Mental Health 10/01/23 Quality Assurance Assessor Relationship Specialty Start Date End Date Jean Claude Joyce MD [address] [place] [address] PCP - General Internal Medicine 02/11/24 Leti Daniel DO [address] [place] [address] [place] Referring Team Psych/Mental Health 10/01/23 Quality Assurance Assessor Relationship Specialty Start Date End Date Jean Claude Joyce MD [address] [facility] [place], [place] [address] PCP - General Internal Medicine 02/11/24 Leti Daniel DO [address] [place], [place] [address] NI Referring Team Psych/Mental Health 10/01/23 Quality Assurance Assessor Relationship Specialty Start Date End Date Jean Claude Joyce MD [address] [facility] [place], [place] [address] PCP - General Internal Medicine 02/11/24 Leti Daniel DO [address] [place] [address] [place] Referring Team Psych/Mental Health 10/01/23 Quality Assurance Assessor Relationship Specialty Start Date End Date Zakiya Etienne, [employer]DER [address] [facility] [address] [place] [address] PCP - General Internal Medicine 06/25/22 Quality Assurance Assessor Relationship Specialty Start Date End Date Jean Claude Joyce MD [address] [place] [address] PCP - General Internal Medicine 02/11/24 Leti Daniel DO [address] [place] [address] NI Referring Team Psych/Mental Health 10/01/23 Quality Assurance Assessor Relationship Specialty Start Date End Date Jean Claude Joyce MD [address] [place] [address] PCP - General Internal Medicine 02/11/24 Leti Daniel DO [address] [place] [address] [place] Referring Team Psych/Mental Health 10/01/23 Quality Assurance Assessor Relationship Specialty Start Date End Date Jean Claude Joyce MD [address] [place] [address] PCP - General Internal Medicine 02/11/24 Leti Daniel DO [address] [place] [address] NI Referring Team Psych/Mental Health 10/01/23 Quality Assurance Assessor Relationship Specialty Start Date End Date Jean Claude Joyce MD [address] [place] [address] PCP - General Internal Medicine 02/11/24 Leti Daniel DO [address] [place], [place] [address] NI Referring Team Psych/Mental Health 10/01/23 Goals (unrecognized section and content) Goals may be documented in a n alternate sectionGoals may be documented in an alternate section Source Comments (unrecognize d section and content) In the event this informatio n is protected by the Federal Confidentiality of Alcohol and Drug Abuse Patient Records regulations: The Federal rules restrict any use of the information to criminally investigate or prosecute any alcohol or drug abuse patient.[facility] the event this information is protected by the Federal Confidentiality of Alcohol and Drug Abuse Patient Records regulations: The Federal rules restrict any use of the information to criminally investigate or prosecute any alcohol or drug abuse patient.[facility] HospitalIn the event this information is protected by the Federal Confidentiality of Alcohol and Drug Abuse Patient Records regulations: The Federal rules restrict any use of the information to criminally investigate or prosecute any alcohol or drug abuse patient.[facility] HospitalIn the event this information is protected by the Federal Confidentiality of Alcohol and Drug Abuse Patient Records regulations: The Federal rules restrict any use of the information to criminally investigate or prosecute any alcohol or drug abuse patient.[facility] HospitalIn the event this information is protected by the Federal Confidentiality of Alcohol and Drug Abuse Patient Records regulations: The Federal rules restrict any use of the information to criminally investigate or prosecute any alcohol or drug abuse patient.[facility] HospitalIn the event this information is protected by the Federal Confidentiality of Alcohol and Drug Abuse Patient Records regulations: The Federal rules restrict any use of the information to criminally investigate or prosecute any alcohol or drug abuse patient.[facility] HospitalIn the event this information is protected by the Federal Confidentiality of Alcohol and Drug Abuse Patient Records regulations: The Federal rules restrict any use of the information to criminally investigate or prosecute any alcohol or drug abuse patient.[facility] HospitalIn the event this information is protected by the Federal Confidentiality of Alcohol and Drug Abuse Patient Records regulations: The Federal rules restrict any use of the information to criminally investigate or prosecute any alcohol or drug abuse patient.[facility] HospitalIn the event this information is protected by the Federal Confidentiality of Alcohol and Drug Abuse Patient Records regulations: The Federal rules restrict any use of the information to criminally investigate or prosecute any alcohol or drug abuse patient.[facility] HospitalIn the event this information is protected by the Federal Confidentiality of Alcohol and Drug Abuse Patient Records regulations: The Federal rules restrict any use of the information to criminally investigate or prosecute any alcohol or drug abuse patient.[facility] HospitalIn the event this information is protected by the Federal Confidentiality of Alcohol and Drug Abuse Patient Records regulations: The Federal rules restrict any use of the information to criminally investigate or prosecute any alcohol or drug abuse patient.[facility] the event this information is protected by the Federal Confidentiality of Alcohol and Drug Abuse Patient Records regulations: The Federal rules restrict any use of the information to criminally investigate or prosecute any alcohol or drug abuse patient.[facility] HospitalIn the event this information is protected by the Federal Confidentiality of Alcohol and Drug Abuse Patient Records regulations: The Federal rules restrict any use of the information to criminally investigate or prosecute any alcohol or drug abuse patient.[facility] HospitalIn the event this information is protected by the Federal Confidentiality of Alcohol and Drug Abuse Patient Records regulations: The Federal rules restrict any use of the information to criminally investigate or prosecute any alcohol or drug abuse patient.[facility] HospitalIn the event this information is protected by the Federal Confidentiality of Alcohol and Drug Abuse Patient Records regulations: The Federal rules restrict any use of the information to criminally investigate or prosecute any alcohol or drug abuse patient.[facility] HospitalIn the event this information is protected by the Federal Confidentiality of Alcohol and Drug Abuse Patient Records regulations: The Federal rules restrict any use of the information to criminally investigate or prosecute any alcohol or drug abuse patient.[facility] HospitalIn the event this information is protected by the Federal Confidentiality of Alcohol and Drug Abuse Patient Records regulations: The Federal rules restrict any use of the information to criminally investigate or prosecute any alcohol or drug abuse patient.[facility] HospitalIn the event this information is protected by the Federal Confidentiality of Alcohol and Drug Abuse Patient Records regulations: The Federal rules restrict any use of the information to criminally investigate or prosecute any alcohol or drug abuse patient.[facility] HospitalIn the event this information is protected by the Federal Confidentiality of Alcohol and Drug Abuse Patient Records regulations: The Federal rules restrict any use of the information to criminally investigate or prosecute any alcohol or drug abuse patient.[facility] HospitalIn the event this information is protected by the Federal Confidentiality of Alcohol and Drug Abuse Patient Records regulations: The Federal rules restrict any use of the information to criminally investigate or prosecute any alcohol or drug abuse patient.[facility] HospitalIn the event this information is protected by the Federal Confidentiality of Alcohol and Drug Abuse Patient Records regulations: The Federal rules restrict any use of the information to criminally investigate or prosecute any alcohol or drug abuse patient.[facility] HospitalIn the event this information is protected by the Federal Confidentiality of Alcohol and Drug Abuse Patient Records regulations: The Federal rules restrict any use of the information to criminally investigate or prosecute any alcohol or drug abuse patient.[facility] HospitalIn the event this information is protected by the Federal Confidentiality of Alcohol and Drug Abuse Patient Records regulations: The Federal rules restrict any use of the information to criminally investigate or prosecute any alcohol or drug abuse patient.[facility] HospitalIn the event this information is protected by the Federal Confidentiality of Alcohol and Drug Abuse Patient Records regulations: The Federal rules restrict any use of the information to criminally investigate or prosecute any alcohol or drug abuse patient.[facility] HospitalIn the event this information is protected by the Federal Confidentiality of Alcohol and Drug Abuse Patient Records regulations: The Federal rules restrict any use of the information to criminally investigate or prosecute any alcohol or drug abuse patient.[facility] HospitalIn the event this information is protected by the Federal Confidentiality of Alcohol and Drug Abuse Patient Records regulations: The Federal rules restrict any use of the information to criminally investigate or prosecute any alcohol or drug abuse patient.[facility] HospitalIn the event this information is protected by the Federal Confidentiality of Alcohol and Drug Abuse Patient Records regulations: The Federal rules restrict any use of the information to criminally investigate or prosecute any alcohol or drug abuse patient.[facility] HospitalIn the event this information is protected by the Federal Confidentiality of Alcohol and Drug Abuse Patient Records regulations: The Federal rules restrict any use of the information to criminally investigate or prosecute any alcohol or drug abuse patient.[facility] HospitalIn the event this information is protected by the Federal Confidentiality of Alcohol and Drug Abuse Patient Records regulations: The Federal rules restrict any use of the information to criminally investigate or prosecute any alcohol or drug abuse patient.[facility] HospitalIn the event this information is protected by the Federal Confidentiality of Alcohol and Drug Abuse Patient Records regulations: The Federal rules restrict any use of the information to criminally investigate or prosecute any alcohol or drug abuse patient.[facility] HospitalIn the event this information is protected by the Federal Confidentiality of Alcohol and Drug Abuse Patient Records regulations: The Federal rules restrict any use of the information to criminally investigate or prosecute any alcohol or drug abuse patient.[facility] HospitalIn the event this information is protected by the Federal Confidentiality of Alcohol and Drug Abuse Patient Records regulations: The Federal rules restrict any use of the information to criminally investigate or prosecute any alcohol or drug abuse patient.[facility] HospitalIn the event this information is protected by the Federal Confidentiality of Alcohol and Drug Abuse Patient Records regulations: The Federal rules restrict any use of the information to criminally investigate or prosecute any alcohol or drug abuse patient.[facility] HospitalIn the event this information is protected by the Federal Confidentiality of Alcohol and Drug Abuse Patient Records regulations: The Federal rules restrict any use of the information to criminally investigate or prosecute any alcohol or drug abuse patient.[facility] HospitalIn the event this information is protected by the Federal Confidentiality of Alcohol and Drug Abuse Patient Records regulations: The Federal rules restrict any use of the information to criminally investigate or prosecute any alcohol or drug abuse patient.[facility] HospitalIn the event this information is protected by the Federal Confidentiality of Alcohol and Drug Abuse Patient Records regulations: The Federal rules restrict any use of the information to criminally investigate or prosecute any alcohol or drug abuse patient.[facility] HospitalIn the event this information is protected by the Federal Confidentiality of Alcohol and Drug Abuse Patient Records regulations: The Federal rules restrict any use of the information to criminally investigate or prosecute any alcohol or drug abuse patient.[facility] HospitalIn the event this information is protected by the Federal Confidentiality of Alcohol and Drug Abuse Patient Records regulations: The Federal rules restrict any use of the information to criminally investigate or prosecute any alcohol or drug abuse patient.[facility] HospitalIn the event this information is protected by the Federal Confidentiality of Alcohol and Drug Abuse Patient Records regulations: The Federal rules restrict any use of the information to criminally investigate or prosecute any alcohol or drug abuse patient.[facility] HospitalIn the event this information is protected by the Federal Confidentiality of Alcohol and Drug Abuse Patient Records regulations: The Federal rules restrict any use of the information to criminally investigate or prosecute any alcohol or drug abuse patient.[facility] HospitalIn the event this information is protected by the Federal Confidentiality of Alcohol and Drug Abuse Patient Records regulations: The Federal rules restrict any use of the information to criminally investigate or prosecute any alcohol or drug abuse patient.[facility] HospitalIn the event this information is protected by the Federal Confidentiality of Alcohol and Drug Abuse Patient Records regulations: The Federal rules restrict any use of the information to criminally investigate or prosecute any alcohol or drug abuse patient.[facility] FOR RECORDS PERTAINING TO PATIENTS WHO ARE [...] BE BASED ON THE PRIMARY CLINICAL RECORDS. [facility]. provides no warranty or guarantee of the accuracy or completeness of information in this document.
== END 2025-01-05 05:16 | disposition home or self-care (01) ==
LOC: ED 05:13
PROVIDERS: Emergency Provider Emergency Medicine; PCP Internal Medicine; Visit Provider Emergency Medicine
DX: J20.9 Acute bronchitis, unspecified (principal); E66.9 Obesity, unspecified; F17.290 Nicotine dependence, other tobacco product, uncomplicated; E03.9 Hypothyroidism, unspecified; I25.2 Old myocardial infarction
CPT/HCPCS: 99282